=== PATIENT | female | born 1945 | race Caucasian/White ===

== ENCOUNTER 2016-12-08 10:14 | Emergency (ER) | payer OTHER, BC ==
[2016-12-08 10:18] VITALS: BP 154/68; PULSE 74; TEMP 97.8; BMI 39.6
--- NOTE | 2016-12-08 10:31 | PDOC ---
History of Present Illness - General Chief Complaint: Pain Stated Complaint: LT LEG PAIN Time Seen by Provider: 12/08/16 10:29 History Source: Patient Exam Limitations: No Limitations - History of Present Illness Initial Comments: CHIEF COMPLAINT: 71 y/o afebrile female with PMH HTN, HLD, IDDM, carotid artery stenosis, CAD (on Plavix), spinal stenosis c/o left thigh pain. HISTORY OF PRESENT ILLNESS: The patient states as she was twisting to get back into bed this morning she felt a pull and a pop in her left thigh and since that time it's been painful with certain movements. Vital signs on arrival are within normal limits. REVIEW OF SYSTEMS: GENERAL/CONSTITUTIONAL: No fever/chills. No weakness. No weight change. GASTROINTESTINAL: No abd pain, nausea, vomiting, diarrhea. GENITOURINARY: No dysuria, frequency, or change in urination. MUSCULOSKELETAL: +left thigh pain. No neck or back pain. SKIN: No rash or easy bruising. NEUROLOGIC: No headache, vertigo, loss of consciousness, or loss of sensation. PHYSICAL EXAM: VITAL_SIGNS: within normal limits GENERAL_APPEARANCE: alert, cooperative, no obvious discomfort. The patient is ambulatory with some discomfort. MENTAL_STATUS: speech clear, oriented X 3, responds appropriately to questions. BACK: No TTP of lumbar spine or muscles of lumbar spine. NEURO: motor intact and sensory intact in injured extremity. EXTREMITIES: TTP along left sartorius muscle without bulging, edema or erythema. Pulling type of pain elicited with adduction of left leg. No TTP of left hip joint. No hernias appreciated. SKIN: warm, dry, good color. Past History - Past Medical History Allergies/Adverse Reactions: Allergies Allergy/AdvReac Type Severity Reaction Status Date / Time No Known Allergies Allergy Verified 12/08/16 10:18 Home Medications: Ambulatory Orders Insulin Glargine,Hum.rec.anlog [Lantus] 10 unit SQ BID 04/05/12 Metformin HCl [Glucophage -] 500 mg PO BID 04/05/12 Metoprolol Succinate [Toprol XL -] 25 mg PO DAILY 04/05/12 Pantoprazole Suspension [Protonix Packets For Oral Suspension -] 40 mg PO DAILY 07/13/12 Vitamin E 800 unit PO BID 07/13/12 Furosemide [Lasix -] 20 mg PO DAILY PRN 04/28/13 Lorazepam 0.5 mg PO PRN PRN 04/28/13 Lidocaine 5% Patch [Lidoderm -] 1 patch TP TID PRN 06/03/13 Cholecalciferol (Vitamin D3) [Vitamin D3] 10,000 unit PO HS 11/12/14 Tramadol HCl 50 mg PO PRN PRN 11/12/14 Aspirin Coated [Ecotrin -] 81 mg PO DAILY 07/22/15 Atorvastatin Ca [Lipitor -] 80 mg PO HS 07/22/15 Clopidogrel Bisulfate [Plavix -] 75 mg PO Q48H 07/22/15 Furosemide [Lasix -] 40 mg PO PRN PRN 07/22/15 Pioglitazone HCl [Actos] 45 mg PO HS 07/22/15 Tramadol HCl 50 mg PO Q4H #30 tablet MDD 6 12/08/16 Cardiac Disorders: Yes (CHF, Mydsystolic murmur) Diabetes: Yes (IDDM) HTN: Yes Hypercholesterolemia: Yes Other medical history: SPINAL STENOSIS, CLOTTED ARTERIES - Surgical History Cardiac Surgery: Yes (cath) Orthopedic Surgery: Yes (R. Knee & Femur) - Immunization History Td Vaccination: Yes Immunization Up to Date: No - Psycho/Social/Smoking Cessation Hx Anxiety: No Suicidal Ideation: No Smoking Status: No Smoking History: Former smoker Years of Tobacco Use: 20 Have you smoked in the past 12 months: No Number of Cigarettes Smoked Daily: 0 If you are a former smoker, when did you quit?: 24 YRS AGO Cigars Per Day: 0 Information on smoking cessation initiated: No Hx Alcohol Use: Yes (SOCIAL) Drug/Substance Use Hx: No Substance Use Type: None Hx Substance Use Treatment: No *Physical Exam - Vital Signs Last Vital Signs Temp Pulse Resp BP Pulse Ox 97.8 F 74 20 154/68 97 12/08/16 10:15 12/08/16 10:15 12/08/16 10:15 12/08/16 10:15 12/08/16 10:15 Medical Decision Making - Medical Decision Making A/P: 71 y/o female with left groin pull. The patient is on Plavix. Will give Tramadol for pain as the patient states she has taken in the past. Will send Rx for tramadol. Suggested she alternate between ice and heat to the affected area and stretch affected area multiple times per day. Suggested she f/u with Dr. Sweet in 2 weeks if no improvement in symptoms and return to the ER with any worsening or concerning symptoms. The patient verbalizes understanding of all instructions, has no further questions and is awaiting discharge. *DC/Admit/Observation/Transfer Diagnosis at time of Disposition: Muscle strain of left lower extremity Qualifiers: Encounter type: initial encounter Qualified Code(s): S86.912A - Strain of unspecified muscle(s) and tendon(s) at lower leg level, left leg, initial encounter - Discharge Dispostion Disposition: HOME Condition at time of disposition: Good - Prescriptions Prescriptions: Tramadol HCl 50 mg PO Q4H #30 tablet MDD 6 - Referrals Referrals: Julio C Barbosa MD [Primary Care Provider] - Shawn Sweet MD [Staff Physician] - 14 days - Patient Instructions Printed Discharge Instructions: DI for Muscle Strain, How To Perform RICE (Rest , Ice, Compress, Elevate) Additional Instructions: Discharge Instructions: -Take Tramadol as prescribed if needed for pain; may cause drowsiness -Alternate between ice and heating pad to affected area -Stretch your affected muscle hourly -If no improvement in symptoms within 1 week, follow up with Dr. Sweet -Return to the ER with any worsening or concerning symptoms
[2016-12-08] MEDS ORDERED: traMADol HCL 50 MG TABLET PO ONE (10:45)
[2016-12-08] MEDS ORDERED: traMADol HCL 50 MG TABLET ONE (10:48)
== END 2016-12-08 10:50 | disposition home or self-care (01) ==
LOC: JERFT 10:14
DX: S76.812A Strain of other specified muscles, fascia and tendons at thigh level, left thigh, initial encounter (principal); X50.1XXA Overexertion from prolonged static or awkward postures, initial encounter; Y93.89 Activity, other specified; Y92.013 Bedroom of single-family (private) house as the place of occurrence of the external cause; I25.10 Atherosclerotic heart disease of native coronary artery without angina pectoris; Z98.61 Coronary angioplasty status; I11.0 Hypertensive heart disease with heart failure; E11.9 Type 2 diabetes mellitus without complications; Z79.4 Long term (current) use of insulin; Z79.84 Long term (current) use of oral hypoglycemic drugs; E78.00 Pure hypercholesterolemia, unspecified; I65.23 Occlusion and stenosis of bilateral carotid arteries; M48.00 Spinal stenosis, site unspecified; Z79.01 Long term (current) use of anticoagulants
CPT/HCPCS: 99281-25

== ENCOUNTER 2017-02-04 09:12 | Inpatient (IN) | payer OTHER, BC ==
[2017-02-04 09:17] VITALS: BMI 39.1
[2017-02-04] MEDS ORDERED: CLINDAMYCIN 600MG PREMIX IVPB 50 ML IVPB ONE ×2 (09:39→09:44)
--- NOTE | 2017-02-04 09:56 | PDOC ---
History of Present Illness - General Chief Complaint: Redness To Affected Area Stated Complaint: PAIN Time Seen by Provider: 02/04/17 09:22 History Source: Patient - History of Present Illness Occurred: reports: other Lower Extremity Pain Location: right: foot Past History - Past Medical History Allergies/Adverse Reactions: Allergies Allergy/AdvReac Type Severity Reaction Status Date / Time No Known Allergies Allergy Verified 02/04/17 09:13 Home Medications: Ambulatory Orders Insulin Glargine,Hum.rec.anlog [Lantus] 10 unit SQ BID 04/05/12 Metformin HCl [Glucophage -] 500 mg PO BID 04/05/12 Metoprolol Succinate [Toprol XL -] 25 mg PO DAILY 04/05/12 Pantoprazole Suspension [Protonix Packets For Oral Suspension -] 40 mg PO DAILY 07/13/12 Vitamin E 800 unit PO BID 07/13/12 Furosemide [Lasix -] 20 mg PO DAILY PRN 04/28/13 Lorazepam 0.5 mg PO PRN PRN 04/28/13 Lidocaine 5% Patch [Lidoderm -] 1 patch TP TID PRN 06/03/13 Cholecalciferol (Vitamin D3) [Vitamin D3] 10,000 unit PO HS 11/12/14 Aspirin Coated [Ecotrin -] 81 mg PO DAILY 07/22/15 Atorvastatin Ca [Lipitor -] 80 mg PO HS 07/22/15 Clopidogrel Bisulfate [Plavix -] 75 mg PO Q48H 07/22/15 Furosemide [Lasix -] 40 mg PO PRN PRN 07/22/15 Pioglitazone HCl [Actos] 45 mg PO HS 07/22/15 Tramadol HCl 50 mg PO Q4H #30 tablet MDD 6 12/08/16 Ciclopirox Olamine [Ciclodan] 90 gm TP BID 02/04/17 Magnesium Oxide [Magnesium] 400 mg PO BID 02/04/17 Cardiac Disorders: Yes (CHF, Mydsystolic murmur) 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 Knee & Femur) - Immunization History Td Vaccination: Yes Immunization Up to Date: No - Psycho/Social/Smoking Cessation Hx Anxiety: No Suicidal Ideation: No Smoking Status: No Smoking History: Never smoked Years of Tobacco Use: 20 Have you smoked in the past 12 months: No Number of Cigarettes Smoked Daily: 0 If you are a former smoker, when did you quit?: 24 YRS AGO Cigars Per Day: 0 Information on smoking cessation initiated: No Hx Alcohol Use: No Drug/Substance Use Hx: No Substance Use Type: None Hx Substance Use Treatment: No Review of Systems - Review of Systems Constitutional: No: Chills, Fever, Malaise Integumentary: Yes: Erythema *Physical Exam - Vital Signs Last Vital Signs Temp Pulse Resp BP Pulse Ox 97.9 F 76 18 117/58 95 02/04/17 09:13 02/04/17 09:13 02/04/17 09:13 02/04/17 09:13 02/04/17 09:13 - Physical Exam General Appearance: Yes: Appropriately Dressed. No: Apparent Distress HEENT: positive: Pale Conjunctivae Neck: positive: Supple Respiratory/Chest: negative: Respiratory Distress Extremity: positive: Erythema (erythema w/ minimal swelling to R toes diffusely , extending into dorsum of foot, w/ ttp to lateral aspect of R great toe w/ no e /o paronychia at this time, pedal pulses faint) Integumentary: positive: Dry, Warm Neurologic: positive: Fully Oriented, Alert, Normal Mood/Affect ED Treatment Course - LABORATORY CBC & Chemistry Diagram: 02/04/17 09:50 02/04/17 10:31 - RADIOLOGY Radiology Studies Ordered: Category Date Time Status CHEST X-RAY PORTABLE* [RAD] Stat Radiology 02/04/17 09:39 Ordered FOOT-RIGHT [RAD] Stat Radiology 02/04/17 09:39 Ordered Medical Decision Making - Medical Decision Making 02/04/17 09:51 71 yo F, h/o IDDM, HTN, CHF, CAD, TIA, carotid stenosis, gout, p/w pain, swelling and erythema to R foot. Pt states she gets recurrent paronychia to R great toe and that her R toes are usually "discolored" at baseline but that for the past 3 days, toes are "more red and angry looking". No f/c, Feels well otherwise See exam R foot cellulitis Pedal pulses palpated but faint Stable in ED -labs -XR r/o osteo -abx -anticipate admission for IV abx and vascular consult to r/o PVD as contributing factor to cellulitis 02/04/17 09:57 02/04/17 09:59 02/04/17 11:19 Case d/w Dr Faulkner who recommends US arterial/vasc and admit pt 02/04/17 13:15 As per radiology, there is some periosteal changes along distal tibia which could represent ?osteo. On exam pt's cellulitis is to R toes, there in no ankle/ leg involvement so osteo less likely. However will send off CRP/ESR. US neg for DVT and there is some inflow ab/nl on arterial dopler but no occlusion or sig stenosis. 02/04/17 13:27 *DC/Admit/Observation/Transfer Diagnosis at time of Disposition: Cellulitis Qualifiers: Site of cellulitis: extremity Site of cellulitis of extremity: lower extremity Laterality: right Qualified Code(s): L03.115 - Cellulitis of right lower limb - Discharge Dispostion Condition at time of disposition: Stable Admit: Yes - Referrals
[2017-02-04 09:58] LABS: BASOPHIL 1.1 % (0-2.0); EOSINOPHIL 4.2 % (0-4.5); MCH 26.7 pg (25.7-33.7); MCHC 32.9 g/dl (32.0-36.0); MEAN CELL VOLUME 81.3 fl (80-96); MEAN PLT VOLUME 8.4 fl (7.5-11.1); NEUTROPHILS 61.2 % (42.8-82.8); PLATELET COUNT 256 K/MM3 (134-434); RDW 17.4 % (11.6-15.6); WHITE BLOOD COUNT 7.6 K/mm3 (4.0-10.0)
--- NOTE | 2017-02-04 10:01 | PDOC ---
*Physical Exam - Vital Signs Last Vital Signs Temp Pulse Resp BP Pulse Ox 97.9 F 76 18 117/58 95 02/04/17 09:13 02/04/17 09:13 02/04/17 09:13 02/04/17 09:13 02/04/17 09:13 Heart Score/ECG Review #1 ECG reviewed & interpreted by me at: 10:01 02/04/17 10:01 Twelve-lead EKG was performed and reviewed by me. There is normal sinus rhythm with a normal rate of 71 bpm. The axis is normal. The intervals are normal. There are no ST elevations or depressions. T wave inversion III ED Treatment Course - LABORATORY CBC & Chemistry Diagram: 02/04/17 09:50 02/04/17 10:31 Medical Decision Making - Medical Decision Making 02/04/17 09:59 This is a 71 yo F H/o DM recurrent paronychias p/w right foot pain and swelling pt notes increased erythema No fevers No chills Plan for vein study by Dr. Bentley some time in february Will: check labs check crp xray foot possible observation Pt seen by Midlevel Provider under my direct supervision Pt interviewed and examined Ancillary studies reviewed I agree with plan as outlined by Midlevel Provider *DC/Admit/Observation/Transfer Diagnosis at time of Disposition: Cellulitis - Discharge Dispostion Condition at time of disposition: Stable
--- NOTE | 2017-02-04 10:04 | EKG ---
Test Reason : Blood Pressure : / mmHG Vent. Rate : 071 BPM Atrial Rate : 071 BPM P-R Int : 194 ms QRS Dur : 094 ms QT Int : 422 ms P-R-T Axes : 019 065 021 degrees QTc Int : 458 ms NORMAL SINUS RHYTHM NONSPECIFIC ST ABNORMALITY WHEN COMPARED WITH ECG OF 07 JAN 2015 Confirmed by ANGLE RAY MD ([id number]) on 02/04/2017 10:03:37 AM Referred By: Confirmed By:ANGLE ARY MD
[2017-02-04 11:14] LABS: ALBUMIN 3.3 g/dl (3.4-5.0); ALK PHOS 101 U/L (45-117); ANION GAP 11 (8-16); BILIRUBIN,TOTAL 0.4 mg/dL (0.2-1.0); CALCIUM 9.6 mg/dL (8.5-10.1); CO2 24 mmol/L (21-32); CREATININE 1.4 mg/dL (0.55-1.02); GLUCOSE,RANDOM 99 mg/dL (74-106); SGOT/AST 20 U/L (15-37); SGPT/ALT 14 U/L (12-78); TOT PROT 7.5 g/dl (6.4-8.2)
[2017-02-04 16:29] LABS: URINE APPEARANCE CLEAR; URINE BILIRUBIN NEGATIVE (NEGATIVE); URINE BLOOD NEGATIVE (NEGATIVE); URINE COLOR LTYELLOW; URINE GLUCOSE (UA) NEGATIVE (NEGATIVE); URINE KETONE NEGATIVE (NEGATIVE); URINE LEUK ESTERASE NEGATIVE (NEGATIVE); URINE NITRITE NEGATIVE (NEGATIVE); URINE PROTEIN NEGATIVE (NEGATIVE); URINE UROBILINOGEN NEGATIVE E.U./dl (0.2-1.0)
--- NOTE | 2017-02-04 19:32 | CONSULT ---
Consult - Past Medical History Cardio/Vascular: Yes: Aortic Stenosis, CAD, CHF, HTN, Other (carotid artery disease) Gastrointestinal: Yes: Constipation Renal/: Yes: Renal Inusuff Psych: Yes: Anxiety Musculoskeletal: Yes: Chronic low back pain - Alcohol/Substance Use Hx Alcohol Use: No - Smoking History Smoking history: Never smoked Have you smoked in the past 12 months: No Aproximately how many cigarettes per day: 0 If you are a former smoker, when did you quit?: 24 YRS AGO Home Medications - Allergies Allergies/Adverse Reactions: Allergies Allergy/AdvReac Type Severity Reaction Status Date / Time No Known Allergies Allergy Verified 02/04/17 09:13 - Home Medications Home Medications: Ambulatory Orders Insulin Glargine,Hum.rec.anlog [Lantus] 10 unit SQ BID 04/05/12 Metformin HCl [Glucophage -] 500 mg PO BID 04/05/12 Metoprolol Succinate [Toprol XL -] 25 mg PO DAILY 04/05/12 Pantoprazole Suspension [Protonix Packets For Oral Suspension -] 40 mg PO DAILY 07/13/12 Vitamin E 800 unit PO BID 07/13/12 Furosemide [Lasix -] 20 mg PO DAILY PRN 04/28/13 Lorazepam 0.5 mg PO PRN PRN 04/28/13 Lidocaine 5% Patch [Lidoderm -] 1 patch TP TID PRN 06/03/13 Cholecalciferol (Vitamin D3) [Vitamin D3] 10,000 unit PO HS 11/12/14 Aspirin Coated [Ecotrin -] 81 mg PO DAILY 07/22/15 Atorvastatin Ca [Lipitor -] 80 mg PO HS 07/22/15 Clopidogrel Bisulfate [Plavix -] 75 mg PO Q48H 07/22/15 Furosemide [Lasix -] 40 mg PO PRN PRN 07/22/15 Pioglitazone HCl [Actos] 45 mg PO HS 07/22/15 Tramadol HCl 50 mg PO Q4H #30 tablet MDD 6 12/08/16 Ciclopirox Olamine [Ciclodan] 90 gm TP BID 02/04/17 Magnesium Oxide [Magnesium] 400 mg PO BID 02/04/17 Family Disease History - Family Disease History Family Disease History: Diabetes: Mother, Brother Physical Exam Vital Signs: Vital Signs Temperature 97.8 F 02/04/17 11:07 Pulse Rate 78 02/04/17 13:14 Respiratory Rate 22 02/04/17 13:14 Blood Pressure 166/70 02/04/17 13:14 O2 Sat by Pulse Oximetry (%) 95 02/04/17 13:14 Assessment/Plan Vascular Surgery 71 yo F, h/o IDDM, HTN, CHF, CAD, TIA, carotid stenosis, gout, p/w pain, swelling and erythema to R foot. Pt states she gets recurrent paronychia to R great toe and that her R toes are usually "discolored" at baseline but that for the past 3 days, toes are "more red and angry looking". No f/c, Feels well otherwise PE Head - NC/AT lung - CTA heart - rrr ABd - soft,nt,nd ext - right foot celllulitis - -palpable DP and PT pulse. A/P Right foot cellulitis 1. leg elevation 2. IV antibiotics - I gave one dose of clindamycin to pt. 3. ID consult Evaristo Gary DO
[2017-02-04] MEDS ORDERED: LORazepam 0.5 MG TABLET PO PRN (19:44)
[2017-02-04] MEDS ORDERED: LIDOCAINE 5% TOPICAL PATCH TP PRN (19:44)
[2017-02-04] MEDS ORDERED: FUROSEMIDE 20 MG TABLET (FP) PO PRN (19:44)
[2017-02-04] MEDS ORDERED: CLOPIDOGREL BISULFATE 75 MG TABLET (FP) PO SCH (19:45)
[2017-02-04] MEDS: CLINDAMYCIN 600MG PREMIX IVPB 50 ML IVPB SCH (20:22)
[2017-02-04] MEDS ORDERED: [UNRECOGNIZED DRUG - OTHER] SQ SCH (22:00)
[2017-02-04] MEDS ORDERED: INSULIN GLARGINE HUM REC ANLOG 10 UNIT SQ SCH (22:00)
[2017-02-04] MEDS: INSULIN DETEMIR 100 UNITS/ML MDV SQ SCH (22:05)
[2017-02-04] MEDS: ATORVASTATIN CA 80 MG TABLET (FP) PO SCH (22:05)
[2017-02-04] MEDS: PIOGLITAZONE HCL 15 MG TABLET (FP) PO SCH (22:05)
[2017-02-05] MEDS: CLINDAMYCIN 600MG PREMIX IVPB 50 ML IVPB SCH (01:16)
[2017-02-05] MEDS: INSULIN DETEMIR 100 UNITS/ML MDV SQ SCH ×2 (06:28→21:10)
[2017-02-05] MEDS: metFORMIN HCL 500 MG TABLET (FP) PO SCH ×2 (06:28→16:37)
--- NOTE | 2017-02-05 09:41 | PN ---
Progress Note (short form) - Note Progress Note: ID Full note dictated " Cellulitis" does not look like it requires admission at this point Assessment Rx with Cefazolin until Dr Faulkner discharges her on Keflex 500mg tid for 5 days Raj PHILIPPE Problem List - Problems (1) Cellulitis Code(s): L03.90 - CELLULITIS, UNSPECIFIED Qualifiers: Site of cellulitis: extremity Site of cellulitis of extremity: lower extremity Laterality: right Qualified Code(s): L03.115 - Cellulitis of right lower limb (2) Diabetes Code(s): E11.9 - TYPE 2 DIABETES MELLITUS WITHOUT COMPLICATIONS
[2017-02-05] MEDS: ASPIRIN COATED 81 MG TABLET.EC PO SCH (09:55)
[2017-02-05] MEDS ORDERED: CLOPIDOGREL BISULFATE 75 MG TABLET (FP) PO SCH (10:00)
[2017-02-05] MEDS: CEFAZOLIN (PRE-DOCKED) 50 ML IVPB SCH ×2 (10:03→17:19)
[2017-02-05 10:11] LABS: C-REACTIVE PROTEIN < 0.3 MG/DL (0.00-0.3)
--- NOTE | 2017-02-05 11:04 | CONS ---
DATE OF CONSULTATION: DATE OF DICTATION: 02/05/2017 INFECTIOUS DISEASE CONSULTATION HISTORY OF PRESENT ILLNESS: This is a 71-year-old diabetic female whom I am asked to see for soft tissue infection of the right foot. The patient apparently developed redness and some swelling on the top of her foot, at the base of the toes. She states that her toes are always red. This began 2 to 3 days ago, and she states she periodically sees a poly area supervisor, who cuts her nails, although she has not been recently. She denies any history of trauma for the foot, and was afebrile, without any systemic complaints of fevers or chills at home. She was admitted with the diagnosis of cellulitis of the right foot and seen in consultation by Dr. Gary and treated with clindamycin intravenously. PAST MEDICAL HISTORY: Includes aortic stenosis, congestive heart failure, insulin dependent diabetes, gout, surgery on the right knee and fever. ALLERGIES: None known. SOCIAL HISTORY: Former smoker, gave this up 24 years ago. No history of substance abuse. Lives at home. No travel. FAMILY HISTORY: Reviewed and noncontributory. REVIEW OF SYSTEMS: Respiratory: No cough, shortness of breath. Cardiac: No chest pain, syncope. History of aortic murmur. Gastrointestinal: No abdominal pain, nausea, vomiting, diarrhea. Genitourinary: No dysuria, hematuria or urinary frequency. PHYSICAL EXAMINATION: General: She was an alert, well-nourished appearing woman in no acute distress. Vital Signs: Temperature 97.8, pulse 74, blood pressure 156/78, respirations 22. Neck: Supple without adenopathy. Lungs: Clear to percussion and auscultation. Heart: S1, S2. Regular rhythm, with a grade 3/6 systolic murmur heard over the precordium. Abdomen: Soft, nontender, without hepatosplenomegaly. Extremities: Minimal erythema at the base of all right toes, with some mild swelling. Palpable pulses. No open wounds. Hallux valgus, suspected hammertoe deformity. DIAGNOSTIC STUDIES: White count 7.6, hemoglobin 10.5, platelets 256. BUN 24, creatinine 1.4. Urinalysis - negative screening UA. X-ray of the foot shows periosteal changes along the distal tibia. ASSESSMENT: Mild skin and soft tissue infection, "cellulitis" of the right foot, has been treated with doses of clindamycin. Absence of systemic findings of fever and chills. RECOMMENDATIONS: The patient can probably be discharged at this point. I will have her on cefazolin while in the hospital, with plan to discharge the patient on Keflex, a short course, perhaps 5 days. PALMIRA RAY M.D. [id number]
--- NOTE | 2017-02-05 14:01 | HP ---
Admitting History and Physical - Admission History of Present Illness: Pt is a 71 y/o female w/ PMH significant for HTN, CHF, diabetes, HLD, carotid stenosis, chronic back pain and anxiety. Pt has also has been having recurrent paronychias and now presented to the ER w/ right foot pain and swelling. There is increased warmth and redness of toes of rt foot. Pt denies fever or chills. - Past Medical History Cardiovascular: Yes: Aortic Stenosis, CAD, CHF, HTN, Other (carotid artery disease) Gastrointestinal: Yes: Constipation Renal/: Yes: Renal Inusuff Psych: Yes: Anxiety Musculoskeletal: Yes: Chronic low back pain Endocrine: Yes: Diabetes Mellitus - Smoking History Smoking history: Never smoked Have you smoked in the past 12 months: No Aproximately how many cigarettes per day: 0 If you are a former smoker, when did you quit?: 24 YRS AGO - Alcohol/Substance Use Hx Alcohol Use: No Home Medications - Allergies Allergies/Adverse Reactions: Allergies Allergy/AdvReac Type Severity Reaction Status Date / Time No Known Allergies Allergy Verified 02/04/17 09:13 - Home Medications Home Medications: Ambulatory Orders Insulin Glargine,Hum.rec.anlog [Lantus] 10 unit SQ BID 04/05/12 Metformin HCl [Glucophage -] 500 mg PO BID 04/05/12 Metoprolol Succinate [Toprol XL -] 25 mg PO DAILY 04/05/12 Pantoprazole Suspension [Protonix Packets For Oral Suspension -] 40 mg PO DAILY 07/13/12 Vitamin E 800 unit PO BID 07/13/12 Furosemide [Lasix -] 20 mg PO DAILY PRN 04/28/13 Lorazepam 0.5 mg PO PRN PRN 04/28/13 Lidocaine 5% Patch [Lidoderm -] 1 patch TP TID PRN 06/03/13 Cholecalciferol (Vitamin D3) [Vitamin D3] 10,000 unit PO HS 11/12/14 Aspirin Coated [Ecotrin -] 81 mg PO DAILY 07/22/15 Atorvastatin Ca [Lipitor -] 80 mg PO HS 07/22/15 Clopidogrel Bisulfate [Plavix -] 75 mg PO Q48H 07/22/15 Furosemide [Lasix -] 40 mg PO PRN PRN 07/22/15 Pioglitazone HCl [Actos] 45 mg PO HS 07/22/15 Tramadol HCl 50 mg PO Q4H #30 tablet MDD 6 12/08/16 Ciclopirox Olamine [Ciclodan] 90 gm TP BID 02/04/17 Magnesium Oxide [Magnesium] 400 mg PO BID 02/04/17 Family Disease History - Family Disease History Family History: Unremarkable Family Disease History: Diabetes: Mother, Brother Review of Systems - Review of Systems Constitutional: reports: No Symptoms Eyes: reports: No Symptoms HENT: reports: No Symptoms Neck: reports: No Symptoms Cardiovascular: reports: No Symptoms Respiratory: reports: No Symptoms Gastrointestinal: reports: No Symptoms Genitourinary: reports: No Symptoms Musculoskeletal: reports: Other (redness pain rt foot) Physical Examination Vital Signs: Vital Signs Temperature 98.1 F 02/05/17 09:46 Pulse Rate 75 02/05/17 09:46 Respiratory Rate 16 02/05/17 09:46 Blood Pressure 144/62 02/05/17 09:46 O2 Sat by Pulse Oximetry (%) 95 02/04/17 13:14 Constitutional: Yes: Well Nourished HENT: Yes: WNL Neck: Yes: WNL, Supple Cardiovascular: Yes: WNL, Regular Rate and Rhythm Respiratory: Yes: WNL, Regular, CTA Bilaterally Gastrointestinal: Yes: WNL, Normal Bowel Sounds, Soft Extremities: Yes: Other ((+) erythema rt toes) Problem List - Problems (1) Cellulitis Assessment/Plan: Cont IV antibx Vascular surgery consult noted ID consult Possible dc planning for am on oral antibx Code(s): L03.90 - CELLULITIS, UNSPECIFIED Qualifiers: Site of cellulitis: extremity Site of cellulitis of extremity: lower extremity Laterality: right Qualified Code(s): L03.115 - Cellulitis of right lower limb (2) Anxiety Code(s): F41.9 - ANXIETY DISORDER, UNSPECIFIED (3) Aortic stenosis Code(s): I35.0 - NONRHEUMATIC AORTIC (VALVE) STENOSIS (4) Carotid artery disease Code(s): I77.9 - DISORDER OF ARTERIES AND ARTERIOLES, UNSPECIFIED (5) Diabetes Code(s): E11.9 - TYPE 2 DIABETES MELLITUS WITHOUT COMPLICATIONS (6) Hypertension Code(s): I10 - ESSENTIAL (PRIMARY) HYPERTENSION Qualifiers: Hypertension type: essential hypertension Qualified Code(s): I10 - Essential (primary) hypertension (7) Spinal stenosis Code(s): M48.00 - SPINAL STENOSIS, SITE UNSPECIFIED
[2017-02-05] MEDS: MAGNESIUM OXIDE 400 MG TABLET (FP) PO SCH (21:09)
[2017-02-05] MEDS: ATORVASTATIN CA 80 MG TABLET (FP) PO SCH (21:09)
[2017-02-05] MEDS: PIOGLITAZONE HCL 15 MG TABLET (FP) PO SCH (21:45)
[2017-02-06] MEDS: CEFAZOLIN (PRE-DOCKED) 50 ML IVPB SCH ×2 (01:51→11:10)
[2017-02-06] MEDS ORDERED: ACETAMINOPHEN 325 MG TABLET (FP) ONE (04:52)
[2017-02-06] MEDS: ACETAMINOPHEN 325 MG TABLET (FP) PO PRN ×2 (04:55→13:58)
[2017-02-06] MEDS: metFORMIN HCL 500 MG TABLET (FP) PO SCH (06:18)
[2017-02-06] MEDS: INSULIN DETEMIR 100 UNITS/ML MDV SQ SCH (07:40)
[2017-02-06] MEDS ORDERED: RANITIDINE HCL 150 MG TABLET (FP) PO SCH (10:00)
[2017-02-06] MEDS ORDERED: FUROSEMIDE 20 MG TABLET (FP) PO SCH (10:00)
[2017-02-06] MEDS: ASPIRIN COATED 81 MG TABLET.EC PO SCH (11:10)
[2017-02-06] MEDS: MAGNESIUM OXIDE 400 MG TABLET (FP) PO SCH (11:10)
[2017-02-06] MEDS ORDERED: METOPROLOL SUCCINATE 25 MG TAB.SR.24H (FP) PO ONE (13:00)
[2017-02-06 14:42] VITALS: BP 148/64; PULSE 72; TEMP 98.7
== END 2017-02-06 15:37 | disposition home or self-care (01) | DRG 603 ==
LOC: JER 09:12 → JERBED 11:07 → J6S 13:31
PROVIDERS: ADMIT Internal Medicine; ATTEND Internal Medicine
DX: L03.115 Cellulitis of right lower limb (principal); F41.9 Anxiety disorder, unspecified; I35.0 Nonrheumatic aortic (valve) stenosis; M48.00 Spinal stenosis, site unspecified; I11.0 Hypertensive heart disease with heart failure; I50.9 Heart failure, unspecified; I25.10 Atherosclerotic heart disease of native coronary artery without angina pectoris; E11.9 Type 2 diabetes mellitus without complications; E78.5 Hyperlipidemia, unspecified; M54.5 Low back pain; Z79.4 Long term (current) use of insulin
CPT/HCPCS: 36415; 71010-TC; 73630-TC-RT; 80053; 81003; 85025; 86140; 93005; 93010; 93926-TC; 93971-TC; 99283-25

== ENCOUNTER 2017-06-17 06:14 | Inpatient (IN) | payer OTHER, BC ==
[2017-06-17 06:43] VITALS: BMI 36.8
[2017-06-17 06:55] LABS: MCHC 32.3 g/dl (32.0-36.0)
[2017-06-17 06:57] LABS: BASOPHIL 0.8 % (0-2.0); EOSINOPHIL 4.4 % (0-4.5); MCH 25.4 pg (25.7-33.7); MEAN CELL VOLUME 78.6 fl (80-96); NEUTROPHILS 59.9 % (42.8-82.8); PLATELET COUNT 236 K/MM3 (134-434); RDW 15.5 % (11.6-15.6); WHITE BLOOD COUNT 5.9 K/mm3 (4.0-10.0)
[2017-06-17 07:11] LABS: INR 1.06 (0.82-1.09)
[2017-06-17 07:22] LABS: ALBUMIN 3.4 g/dl (3.4-5.0); ANION GAP 7 (8-16); CALCIUM 8.9 mg/dL (8.5-10.1); CO2 27 mmol/L (21-32); CREATININE 1.5 mg/dL (0.55-1.02); GLUCOSE,RANDOM 124 mg/dL (74-106); SGOT/AST 16 U/L (15-37); SGPT/ALT 16 U/L (12-78)
[2017-06-17 07:24] LABS: ALK PHOS 104 U/L (45-117); BILIRUBIN,TOTAL 0.5 mg/dL (0.2-1.0); TOT PROT 7.2 g/dl (6.4-8.2)
--- NOTE | 2017-06-17 07:51 | PDOC ---
History of Present Illness - General Chief Complaint: Revisit, Lab Variance Stated Complaint: LIGHTHEADED Time Seen by Provider: 06/17/17 07:01 History Source: Patient Exam Limitations: No Limitations - History of Present Illness Initial Comments: 06/17/17 08:03 Patient is a 72F with history of COPD, CHF, CAD s/p stenting, mutliple arterial vascular issues, and IDDM here today complaining of 2 weeks of fatigue, lightheadedness, and dizziness for the past two weeks. She is also complaining of associated decreased activity level and upper abdominal pain. She denies chest pain, shortness of breath, nausea, vomiting and diaphoresis. She says that her PMD says she was anemic, which was the reason for her presentation for the hospital today. She denies melena, coffee ground emesis, blood in urine, and blood in stool. She reports never having a colonoscopy but did get test called Colon Guard, which was negative. PCP: Familia ALL: AMIRA Past History - Past Medical History Allergies/Adverse Reactions: Allergies Allergy/AdvReac Type Severity Reaction Status Date / Time No Known Allergies Allergy Verified 06/17/17 06:21 Home Medications: Ambulatory Orders Insulin Glargine,Hum.rec.anlog [Lantus] 10 unit SQ BID 04/05/12 Metformin HCl [Glucophage -] 500 mg PO BID 04/05/12 Metoprolol Succinate [Toprol XL -] 25 mg PO DAILY 04/05/12 Pantoprazole Suspension [Protonix Packets For Oral Suspension -] 40 mg PO DAILY 07/13/12 Vitamin E 800 unit PO BID 07/13/12 Furosemide [Lasix -] 20 mg PO DAILY PRN 04/28/13 Lorazepam 0.5 mg PO PRN PRN 04/28/13 Lidocaine 5% Patch [Lidoderm -] 1 patch TP TID PRN 06/03/13 Cholecalciferol (Vitamin D3) [Vitamin D3] 10,000 unit PO HS 11/12/14 Aspirin Coated [Ecotrin -] 81 mg PO DAILY 07/22/15 Atorvastatin Ca [Lipitor] 80 mg PO HS 07/22/15 Clopidogrel Bisulfate [Plavix -] 75 mg PO Q48H 07/22/15 Furosemide [Lasix -] 40 mg PO PRN PRN 07/22/15 Pioglitazone HCl [Actos] 45 mg PO HS 07/22/15 Tramadol HCl 50 mg PO Q4H #30 tablet MDD 6 12/08/16 Ciclopirox Olamine [Ciclodan] 90 gm TP BID 02/04/17 Magnesium Oxide [Magnesium] 400 mg PO BID 02/04/17 Clopidogrel Bisulfate [Plavix -] 75 mg PO Q2D@1000 tablet 02/06/17 Furosemide [Lasix -] 20 mg PO DAILY tablet 02/06/17 Magnesium Oxide [Mag-Ox -] 400 mg PO BID tablet 02/06/17 Metformin HCl [Glucophage -] 500 mg PO BIDI tablet 02/06/17 Pioglitazone HCl [Actos] 45 mg PO HS tablet 02/06/17 Ranitidine [Zantac -] 150 mg PO DAILY tablet 02/06/17 Sertraline HCl [Zoloft] 25 mg PO 06/17/17 Cardiac Disorders: Yes (CHF, Mydsystolic murmur) CVA: Yes (10 years ago) Diabetes: Yes (IDDM) HTN: Yes Hypercholesterolemia: Yes - Surgical History Cardiac Surgery: Yes (cath) Orthopedic Surgery: Yes (R. Knee & Femur) - Immunization History Td Vaccination: Yes Immunization Up to Date: No - Suicide/Smoking/Psychosocial Hx Smoking Status: No Smoking History: Former smoker Years of Tobacco Use: 20 Have you smoked in the past 12 months: No Number of Cigarettes Smoked Daily: 0 If you are a former smoker, when did you quit?: 25 years ago Cigars Per Day: 0 Information on smoking cessation initiated: No Hx Alcohol Use: No Drug/Substance Use Hx: No Substance Use Type: None Hx Substance Use Treatment: No Review of Systems - Review of Systems Comments:: 06/17/17 08:33 GENERAL/CONSTITUTIONAL: No fever or chills. Positive for weakness. HEAD, EYES, EARS, NOSE AND THROAT: No change in vision. No sore throat. CARDIOVASCULAR: No chest pain or shortness of breath RESPIRATORY: No cough, wheezing, or hemoptysis. GASTROINTESTINAL: No nausea, vomiting, diarrhea or constipation. GENITOURINARY: No dysuria, frequency, or change in urination. MUSCULOSKELETAL: No joint or muscle swelling or pain. No neck or back pain. SKIN: No rash NEUROLOGIC: No headache, vertigo, loss of consciousness, or change in strength/ sensation. ENDOCRINE: No increased thirst. No abnormal weight change HEMATOLOGIC/LYMPHATIC: Positive for history of anemia. Negative for history of easy bleeding, or history of blood clots. ALLERGIC/IMMUNOLOGIC: No hives or skin allergy. *Physical Exam - Vital Signs Last Vital Signs Temp Pulse Resp BP Pulse Ox 97.1 F L 84 18 169/66 96 06/17/17 06:21 06/17/17 06:21 06/17/17 06:21 06/17/17 06:21 06/17/17 06:21 - Physical Exam Comments: 06/17/17 08:35 GENERAL: Awake, alert, and fully oriented, in no acute distress HEAD: No signs of trauma, normocephalic, atraumatic EYES: PERRLA, EOMI, sclera anicteric, conjunctiva clear ENT: Auricles normal inspection, hearing grossly normal, nares patent, oropharynx clear without exudates. Moist mucosa NECK: Normal ROM, supple, no lymphadenopathy, JVD, or masses LUNGS: No distress, speaks full sentences, clear to auscultation bilaterally HEART: Regular rate and rhythm, normal S1 and S2, 3/6 systolic crescendo murmur , peripheral pulses normal and equal bilaterally. ABDOMEN: Soft, nontender, normoactive bowel sounds. No guarding, no rebound. No masses EXTREMITIES: Normal inspection, Normal range of motion, 2+ edema to knee. No clubbing or cyanosis. NEUROLOGICAL: Cranial nerves II through XII grossly intact. Normal speech, no focal sensorimotor deficits SKIN: Warm, Dry, normal turgor, no rashes or lesions noted. 06/17/17 09:58 RECTAL: No emre blood, no masses, normal tone. ED Treatment Course - LABORATORY CBC & Chemistry Diagram: 06/17/17 06:34 06/17/17 06:34 - ADDITIONAL ORDERS Additional order review: 06/17/17 06:34 RBC 3.34 L MCV 78.6 L MCHC 32.3 RDW 15.5 D MPV 8.0 Neutrophils % 59.9 Lymphocytes % 25.0 Monocytes % 9.9 Eosinophils % 4.4 Basophils % 0.8 Medical Decision Making - Medical Decision Making 06/17/17 08:36 Patient is a 72F with history of COPD, CHF, CAD s/p stenting, mutliple arterial vascular issues, and IDDM here today complaining of 2 weeks of fatigue, lightheadedness, and dizziness for the past two weeks. Vital signs stable and normal. Differential diagnosis includes, but is not limited to: CHF exacerbation , ACS, anemia, arrhythmia, worsening of cardiac valve function. Will evaluate with heart and anemia labs. EKG shows normal sinus rhythm at normal rate with no st elevation. Shows non specific t wave abnormality in I, II, and III. 06/17/17 09:55 Laboratory Tests 06/17/17 06/17/17 06/17/17 06:34 06:34 06:34 WBC 5.9 Hgb 8.5 L D Hct 26.3 L D Plt Count 236 INR 1.06 BUN 34 H Creatinine 1.5 H B-Natriuretic Peptide 06/17/17 08:45 WBC Hgb Hct Plt Count INR BUN Creatinine B-Natriuretic Peptide 8954.40 H CBC shows microcytic anemia with H/H of 8.5/26.3. Coags normal. Kidney function elevated, last Cr's at 1.3/1.4, earlier 1.0. BNP elevated to 9k. 06/17/17 09:56 CXR shows signs of fluid overload. Will admit to hospitalist. 06/17/17 12:20 Dr Sim accepted patient to inpatient tele. *DC/Admit/Observation/Transfer Diagnosis at time of Disposition: Congestive heart failure (CHF) - Discharge Dispostion Condition at time of disposition: Stable Admit: Yes - Referrals - Patient Instructions - Post Discharge Activity
--- NOTE | 2017-06-17 09:02 | PDOC ---
Attending Attestation - Resident Resident Name: [email or web address] - ED Attending Attestation I have performed the following: I have examined & evaluated the patient, The case was reviewed & discussed with the resident, I agree w/resident's findings & plan, Exceptions are as noted - HPI HPI: 72 yo F history CHF, COPD, CAD s/p stents, DM presents with 2 weeks of fatigue, LH, dizziness for 2 weeks. She has recently had a GI workup with her primary and Dr. Ramos (GI), negative for bleeding. Also had a negative Cologuard test. She saw Dr. Barbosa recently, who sent blood. She was called back yesterday for anemia with Hb 8. She presents today because of weakness, lightheadedness, dec exercise tolerance. - Physicial Exam PE: GENERAL: Awake, alert, and fully oriented, in no acute distress HEAD: No signs of trauma EYES: PERRLA, EOMI, sclera anicteric, conjunctiva pale ENT: Auricles normal inspection, hearing grossly normal, nares patent, oropharynx clear without exudates. Dry mucosa NECK: Normal ROM, supple, no lymphadenopathy, JVD, or masses LUNGS: Breath sounds equal, clear to auscultation bilaterally. No wheezes, and no crackles HEART: Regular rate and rhythm, normal S1 and S2, no murmurs, rubs or gallops ABDOMEN: Soft, nontender, normoactive bowel sounds. No guarding, no rebound. No masses EXTREMITIES: Normal range of motion, +trace edema. No clubbing or cyanosis. No cords, erythema, or tenderness NEUROLOGICAL: Cranial nerves II through XII grossly intact. Normal speech, normal gait SKIN: Warm, Dry, normal turgor, no rashes or lesions noted. - Medical Decision Making Pt sent for anemia, unclear source at present. No prior transfusions in past. Full anemia workup pending. Also with recent significant weight gain. Will plan for admission for anemia/CHF.
[2017-06-17] MEDS ORDERED: ACETAMINOPHEN 325 MG TABLET (FP) PO ONE (09:11)
[2017-06-17] MEDS ORDERED: ACETAMINOPHEN 325 MG TABLET (FP) ONE (09:28)
[2017-06-17 09:29] LABS: INR 1.06 (0.82-1.09)
[2017-06-17 09:39] LABS: MAGNESIUM 2.2 mg/dL (1.8-2.4)
[2017-06-17 09:43] LABS: CPK 95 IU/L (26-192); LDH 254 U/L (84-246); TROPONIN I < 0.02 ng/ml (0.00-0.05)
[2017-06-17] MEDS ORDERED: FUROSEMIDE 40 MG/4 ML INJECTABLE VIAL IVPUSH ONE (10:24)
[2017-06-17] MEDS ORDERED: FUROSEMIDE 40 MG/4 ML INJECTABLE VIAL ONE (10:38)
[2017-06-17] MEDS ORDERED: HEPARIN NA (PORCINE) 5,000 UNITS/ML 1ML VIAL SQ SCH (12:30)
--- NOTE | 2017-06-17 12:56 | CON.CARD ---
Consult Consult Specialty:: Cardiology Reason for Consultation:: waekness/ anemia - History of Present Illness History of Present Illness: Patient is a 72F with history of COPD, CHF, CAD s/p stenting, mutliple arterial vascular issues, and IDDM here today complaining of 2 weeks of fatigue, lightheadedness, and dizziness for the past two weeks. She is also complaining of associated decreased activity level and upper abdominal pain. She denies chest pain, shortness of breath, nausea, vomiting and diaphoresis. She says that her PMD says she was anemic, which was the reason for her presentation for the hospital today. She denies melena, coffee ground emesis, blood in urine, and blood in stool. She reports never having a colonoscopy but did get test called Colon Triposo, which was negative. PMH DM, ASHD moderate to severe (mid LAD), c. cath 11/2014, HTN, Hyperlipidemia, Morbid obesity, Anxiety, CVA (mild - no residuals), PAD 80 % Right ICA stenosis duplex and CTA/4V angio, Severe aortic stenosis with GHANSHYAM calculated 0.9 cm2, and a surgical history of RTKR. 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 - History Source History Provided By: Patient, Medical Record - Past Medical History Cardio/Vascular: Yes: Aortic Stenosis, CAD, CHF, HTN, Other (carotid artery disease) Gastrointestinal: Yes: Constipation Renal/: Yes: Renal Inusuff Psych: Yes: Anxiety Musculoskeletal: Yes: Chronic low back pain Endocrine: Yes: Diabetes Mellitus - Alcohol/Substance Use Hx Alcohol Use: No - Smoking History Smoking history: Former smoker Have you smoked in the past 12 months: No Aproximately how many cigarettes per day: 0 If you are a former smoker, when did you quit?: 25 years ago Home Medications - Allergies Allergies/Adverse Reactions: Allergies Allergy/AdvReac Type Severity Reaction Status Date / Time No Known Allergies Allergy Verified 06/17/17 06:21 - Home Medications Home Medications: Ambulatory Orders Insulin Glargine,Hum.rec.anlog [Lantus] 10 unit SQ BID 04/05/12 Metformin HCl [Glucophage -] 500 mg PO BID 04/05/12 Metoprolol Succinate [Toprol XL -] 25 mg PO DAILY 04/05/12 Pantoprazole Suspension [Protonix Packets For Oral Suspension -] 40 mg PO DAILY 07/13/12 Vitamin E 800 unit PO BID 07/13/12 Furosemide [Lasix -] 20 mg PO DAILY PRN 04/28/13 Lorazepam 0.5 mg PO PRN PRN 04/28/13 Lidocaine 5% Patch [Lidoderm -] 1 patch TP TID PRN 06/03/13 Cholecalciferol (Vitamin D3) [Vitamin D3] 10,000 unit PO HS 11/12/14 Aspirin Coated [Ecotrin -] 81 mg PO DAILY 07/22/15 Atorvastatin Ca [Lipitor] 80 mg PO HS 07/22/15 Clopidogrel Bisulfate [Plavix -] 75 mg PO Q48H 07/22/15 Furosemide [Lasix -] 40 mg PO PRN PRN 07/22/15 Pioglitazone HCl [Actos] 45 mg PO HS 07/22/15 Tramadol HCl 50 mg PO Q4H #30 tablet MDD 6 12/08/16 Ciclopirox Olamine [Ciclodan] 90 gm TP BID 02/04/17 Magnesium Oxide [Magnesium] 400 mg PO BID 02/04/17 Clopidogrel Bisulfate [Plavix -] 75 mg PO Q2D@1000 tablet 02/06/17 Furosemide [Lasix -] 20 mg PO DAILY tablet 02/06/17 Magnesium Oxide [Mag-Ox -] 400 mg PO BID tablet 02/06/17 Metformin HCl [Glucophage -] 500 mg PO BIDI tablet 02/06/17 Pioglitazone HCl [Actos] 45 mg PO HS tablet 02/06/17 Ranitidine [Zantac -] 150 mg PO DAILY tablet 02/06/17 Insulin Glargine,Hum.rec.anlog [Lantus (nf)] 5 units SQ BID 06/17/17 Sertraline HCl [Zoloft] 25 mg PO 06/17/17 Cyanocobalamin [Vitamin B12 -] 2,000 mcg PO DAILY 06/18/17 Family Disease History - Family Disease History Family Disease History: Diabetes: Mother, Brother Review of Systems - Review of Systems Constitutional: reports: Weakness Eyes: reports: No Symptoms HENT: reports: No Symptoms Neck: reports: No Symptoms Cardiovascular: reports: No Symptoms Gastrointestinal: reports: No Symptoms Genitourinary: reports: No Symptoms Breasts: reports: No Symptoms Reported Musculoskeletal: reports: No Symptoms Integumentary: reports: No Symptoms Neurological: reports: No Symptoms Endocrine: reports: No Symptoms Hematology/Lymphatic: reports: No Symptoms Psychiatric: reports: No Symptoms Vital Signs: Vital Signs Temperature 97.1 F L 06/17/17 06:21 Pulse Rate 84 06/17/17 06:21 Respiratory Rate 18 06/17/17 06:21 Blood Pressure 169/66 06/17/17 06:21 O2 Sat by Pulse Oximetry (%) 96 06/17/17 06:21 Constitutional: Yes: Well Nourished, No Distress, Calm Eyes: Yes: WNL, Conjunctiva Clear, EOM Intact HENT: Yes: WNL, Atraumatic, Normocephalic Neck: Yes: WNL, Supple, Trachea Midline Respiratory: Yes: WNL, Regular, CTA Bilaterally Gastrointestinal: Yes: WNL, Normal Bowel Sounds Renal/: Yes: WNL Cardiovascular: Yes: WNL, Regular Rate and Rhythm Musculoskeletal: Yes: WNL Extremities: Yes: WNL Integumentary: Yes: WNL Neurological: Yes: WNL, Alert, Oriented ...Motor Strength: WNL Psychiatric: Yes: WNL, Alert, Oriented - Other Data Labs, Other Data: CBC, BMP 06/17/17 06:34 06/17/17 06:34 INR, PTT INR 1.06 (0.82-1.09) 06/17/17 08:45 Troponin, BNP 06/17/17 08:45 Troponin I < 0.02 B-Natriuretic Peptide 8954.40 H Troponin, BNP 06/17/17 08:45 Troponin I < 0.02 B-Natriuretic Peptide 8954.40 H Imaging - Results Chest X-ray: Image Reviewed (basilar congestion) EKG: Image Reviewed (sr rep abn) Problem List - Problems (1) Congestive heart failure (CHF) Code(s): I50.9 - HEART FAILURE, UNSPECIFIED Qualifiers: Congestive heart failure type: diastolic Congestive heart failure chronicity: acute on chronic Qualified Code(s): I50.33 - Acute on chronic diastolic (congestive) heart failure (2) DVT prophylaxis Code(s): [id number] - (3) Depression Code(s): F32.9 - MAJOR DEPRESSIVE DISORDER, SINGLE EPISODE, UNSPECIFIED Qualifiers: Depression Type: major depressive disorder Major depression recurrence: recurrent Active/Remission status: currently active Psychotic features: without psychotic features (4) HLD (hyperlipidemia) Code(s): E78.5 - HYPERLIPIDEMIA, UNSPECIFIED Qualifiers: Hyperlipidemia type: unspecified Qualified Code(s): E78.5 - Hyperlipidemia , unspecified (5) Symptomatic anemia Code(s): D64.9 - ANEMIA, UNSPECIFIED (6) Acute coronary syndrome Code(s): I24.9 - ACUTE ISCHEMIC HEART DISEASE, UNSPECIFIED (7) Anxiety Code(s): F41.9 - ANXIETY DISORDER, UNSPECIFIED (8) Aortic stenosis Code(s): I35.0 - NONRHEUMATIC AORTIC (VALVE) STENOSIS Qualifiers: Cardiac valve disease etiology: nonrheumatic Qualified Code(s): I35.0 - Nonrheumatic aortic (valve) stenosis (9) Bloody diarrhea Code(s): R19.7 - DIARRHEA, UNSPECIFIED (10) Carotid artery disease Code(s): I77.9 - DISORDER OF ARTERIES AND ARTERIOLES, UNSPECIFIED (11) Cellulitis Code(s): L03.90 - CELLULITIS, UNSPECIFIED Qualifiers: Site of cellulitis: extremity Site of cellulitis of extremity: lower extremity Laterality: right Qualified Code(s): L03.115 - Cellulitis of right lower limb (12) Diabetes Code(s): E11.9 - TYPE 2 DIABETES MELLITUS WITHOUT COMPLICATIONS Qualifiers: Diabetes mellitus type: type 2 Diabetes mellitus complication status: with circulatory complication Diabetes mellitus complication detail: with other circulatory complications Diabetes mellitus joint terminal attack controller insulin use: with joint terminal attack controller use Qualified Code(s): E11.59 - Type 2 diabetes mellitus with other circulatory complications; Z79.4 - buttermaker continuous churn (current) use of insulin; Z79.4 - buttermaker continuous churn (current) use of insulin; Z79.4 - buttermaker continuous churn (current) use of insulin; Z79.4 - buttermaker continuous churn (current) use of insulin (13) Epistaxis Code(s): R04.0 - EPISTAXIS (14) Fracture of metatarsal bone Code(s): S92.309A - FRACTURE OF UNSP METATARSAL BONE(S), UNSP FOOT, INIT (15) Hypertension Code(s): I10 - ESSENTIAL (PRIMARY) HYPERTENSION Qualifiers: Hypertension type: essential hypertension Qualified Code(s): I10 - Essential (primary) hypertension (16) Morbid obesity Code(s): E66.01 - MORBID (SEVERE) OBESITY DUE TO EXCESS CALORIES (17) Muscle strain of left lower extremity Code(s): S86.912A - STRAIN OF UNSP MUSC/TEND AT LOWER LEG LEVEL, LEFT LEG, INIT Qualifiers: Encounter type: initial encounter Qualified Code(s): S86.912A - Strain of unspecified muscle(s) and tendon(s) at lower leg level, left leg, initial encounter (18) Renal insufficiency Code(s): N28.9 - DISORDER OF KIDNEY AND URETER, UNSPECIFIED (19) Spinal stenosis Code(s): M48.00 - SPINAL STENOSIS, SITE UNSPECIFIED Qualifiers: Spinal region: unspecified Qualified Code(s): M48.00 - Spinal stenosis, site unspecified Assessment/Plan Anemia Guiac negative 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 cath 11/2014, HTN, Hyperlipidemia, Morbid obesity, Anxiety, CVA (mild - no residuals), PAD 80 % Right ICA stenosis duplex and CTA/4V angio, Severe aortic stenosis with GHANSHYAM calculated 0.9 cm2, Plan; CT abd /l ext to r/o retroperitoneal/thigh bleed if negative will proceed with endoscopy/colonoscopy of DAPT for now cont telemetry.
--- NOTE | 2017-06-17 13:50 | PN ---
Teaching Attending Note Name of Resident: Rajendra Sim ATTENDING PHYSICIAN STATEMENT I saw and evaluated the patient. I reviewed the resident's note and discussed the case with the resident. I agree with the resident's findings and plan as documented. SUBJECTIVE: OBJECTIVE: Vital Signs Period Temp Pulse Resp BP Sys/Wade Pulse Ox Last 24 Hr 97.1 F-98.4 F 84-87 18-18 169-179/66-71 95-96 Home Medications Medication Instructions Recorded Insulin Glargine,Hum.rec.anlog 10 unit SQ BID 04/05/12 [Lantus] Metformin HCl [Glucophage -] 500 mg PO BID 04/05/12 Metoprolol Succinate [Toprol XL -] 25 mg PO DAILY 04/05/12 Pantoprazole Suspension [Protonix 40 mg PO DAILY 07/13/12 Packets For Oral Suspension -] Vitamin E 800 unit PO BID 07/13/12 Furosemide [Lasix -] 20 mg PO DAILY PRN 04/28/13 Lorazepam 0.5 mg PO PRN PRN 04/28/13 Lidocaine 5% Patch [Lidoderm -] 1 patch TP TID PRN 06/03/13 Cholecalciferol (Vitamin D3) 10,000 unit PO HS 11/12/14 [Vitamin D3] Aspirin Coated [Ecotrin -] 81 mg PO DAILY 07/22/15 Atorvastatin Ca [Lipitor] 80 mg PO HS 07/22/15 Clopidogrel Bisulfate [Plavix -] 75 mg PO Q48H 07/22/15 Furosemide [Lasix -] 40 mg PO PRN PRN 07/22/15 Pioglitazone HCl [Actos] 45 mg PO HS 07/22/15 Tramadol HCl 50 mg PO Q4H #30 tablet MDD 6 12/08/16 Ciclopirox Olamine [Ciclodan] 90 gm TP BID 02/04/17 Magnesium Oxide [Magnesium] 400 mg PO BID 02/04/17 Clopidogrel Bisulfate [Plavix -] 75 mg PO Q2D@1000 tablet 02/06/17 Furosemide [Lasix -] 20 mg PO DAILY tablet 02/06/17 Magnesium Oxide [Mag-Ox -] 400 mg PO BID tablet 02/06/17 Metformin HCl [Glucophage -] 500 mg PO BIDI tablet 02/06/17 Pioglitazone HCl [Actos] 45 mg PO HS tablet 02/06/17 Ranitidine [Zantac -] 150 mg PO DAILY tablet 02/06/17 Sertraline HCl [Zoloft] 25 mg PO 06/17/17 Laboratory Tests 06/17/17 06/17/17 06/17/17 06:33 06:34 06:34 WBC 5.9 RBC 3.34 L Hgb 8.5 L D Hct 26.3 L D MCV 78.6 L MCH 25.4 L MCHC 32.3 RDW 15.5 D Plt Count 236 MPV 8.0 Neutrophils % 59.9 Lymphocytes % 25.0 Monocytes % 9.9 Eosinophils % 4.4 Basophils % 0.8 Retic Count PT with INR 12.00 H INR 1.06 Sodium Potassium Chloride Carbon Dioxide Anion Gap BUN Creatinine Creat Clearance w eGFR Random Glucose Calcium Magnesium Total Bilirubin AST ALT Alkaline Phosphatase LD Total Creatine Kinase Troponin I B-Natriuretic Peptide Total Protein Albumin Stool Occult Blood Blood Type AB POSITIVE Antibody Screen Negative Crossmatch See Detail 06/17/17 06/17/17 06/17/17 06:34 08:45 08:45 WBC RBC Hgb Hct MCV MCH MCHC RDW Plt Count MPV Neutrophils % Lymphocytes % Monocytes % Eosinophils % Basophils % Retic Count 1.00 PT with INR 12.00 H INR 1.06 Sodium 140 Potassium 4.5 Chloride 106 Carbon Dioxide 27 Anion Gap 7 L BUN 34 H Creatinine 1.5 H Creat Clearance w eGFR 34.04 Random Glucose 124 H D Calcium 8.9 Magnesium Total Bilirubin 0.5 D AST 16 ALT 16 Alkaline Phosphatase 104 LD Total Creatine Kinase Troponin I B-Natriuretic Peptide Total Protein 7.2 Albumin 3.4 Stool Occult Blood Blood Type Antibody Screen Crossmatch 06/17/17 06/17/17 06/17/17 08:45 09:12 10:29 WBC RBC Hgb Hct MCV MCH MCHC RDW Plt Count MPV Neutrophils % Lymphocytes % Monocytes % Eosinophils % Basophils % Retic Count PT with INR INR Sodium Potassium Chloride Carbon Dioxide Anion Gap BUN Creatinine Creat Clearance w eGFR Random Glucose Calcium Magnesium 2.2 Total Bilirubin AST ALT Alkaline Phosphatase LD Total 254 H Creatine Kinase 95 Troponin I < 0.02 B-Natriuretic Peptide 8954.40 H Total Protein Albumin Stool Occult Blood Negative Blood Type AB POSITIVE Antibody Screen Crossmatch ASSESSMENT AND PLAN:
--- NOTE | 2017-06-17 14:02 | HP ---
CHIEF COMPLAINT:weakness PCP:Dr. Barbosa HISTORY OF PRESENT ILLNESS: 72 yo F with PMHx of COPD, CHF, CAD s/p stenting, PAD, and IDDM presents with a two week history of progressive weakness. She states that for the past few weeks she just has not been feeling herself. She is complaining of lightheadness , fatigue, and decreased exercise tolerance. She also has some associated LUQ vague abdominal pain worse. She states that she has been eating a low sodium diet, no increase in fluid intake, no orthopnea, but does have some increase swelling of her legs, 7lbs weight gain and abdominal growth. She is on ASA and plavix given her CAD history and last colonoscopy was 11 yrs ago. She denies melenic stools, PRBPR,or other signs of active bleeding. Denies CP,MARTÍNEZ, SOB, palpitations, N/V. ER course was notable for: (1)[id number] (2)CBC shows Hgb 8.2--> 1 unit of PRBC ordered. (3)EKG shows NSR with rate of [address] elevation or depression. (4)CXR shows vascular congestion. Recent Travel: Denies PAST MEDICAL HISTORY:COPD, CHF, CAD s/p stenting, PAD, and IDDM PAST SURGICAL HISTORY: c-sections x2 , Right Knee repair Social History: Smoking:quit 25 yrs ago 50pack year history. Alcohol:socially (1-2 drinks per week) Drugs: denies Family History: DM (mother, brother, Father) Allergies No Known Allergies Allergy (Verified 06/17/17 06:21) HOME MEDICATIONS: Home Medications Medication Instructions Recorded Insulin Glargine,Hum.rec.anlog 10 unit SQ BID 04/05/12 [Lantus] Metformin HCl [Glucophage -] 500 mg PO BID 04/05/12 Metoprolol Succinate [Toprol XL -] 25 mg PO DAILY 04/05/12 Pantoprazole Suspension [Protonix 40 mg PO DAILY 07/13/12 Packets For Oral Suspension -] Vitamin E 800 unit PO BID 07/13/12 Furosemide [Lasix -] 20 mg PO DAILY PRN 04/28/13 Lorazepam 0.5 mg PO PRN PRN 04/28/13 Lidocaine 5% Patch [Lidoderm -] 1 patch TP TID PRN 06/03/13 Cholecalciferol (Vitamin D3) 10,000 unit PO HS 11/12/14 [Vitamin D3] Aspirin Coated [Ecotrin -] 81 mg PO DAILY 07/22/15 Atorvastatin Ca [Lipitor] 80 mg PO HS 07/22/15 Clopidogrel Bisulfate [Plavix -] 75 mg PO Q48H 07/22/15 Furosemide [Lasix -] 40 mg PO PRN PRN 07/22/15 Pioglitazone HCl [Actos] 45 mg PO HS 07/22/15 Tramadol HCl 50 mg PO Q4H #30 tablet MDD 6 12/08/16 Ciclopirox Olamine [Ciclodan] 90 gm TP BID 02/04/17 Magnesium Oxide [Magnesium] 400 mg PO BID 02/04/17 Clopidogrel Bisulfate [Plavix -] 75 mg PO Q2D@1000 tablet 02/06/17 Furosemide [Lasix -] 20 mg PO DAILY tablet 02/06/17 Magnesium Oxide [Mag-Ox -] 400 mg PO BID tablet 02/06/17 Metformin HCl [Glucophage -] 500 mg PO BIDI tablet 02/06/17 Pioglitazone HCl [Actos] 45 mg PO HS tablet 02/06/17 Ranitidine [Zantac -] 150 mg PO DAILY tablet 02/06/17 Sertraline HCl [Zoloft] 25 mg PO 06/17/17 REVIEW OF SYSTEMS CONSTITUTIONAL: generalized weakness, malaise Absent: fever, chills, diaphoresis, , loss of appetite, weight change HEENT: Absent: rhinorrhea, nasal congestion, throat pain, throat swelling, difficulty swallowing, mouth swelling, ear pain, eye pain, visual changes CARDIOVASCULAR: lightheadedness, peripheral edema Absent: chest pain, syncope, palpitations, irregular heart rate, RESPIRATORY: Absent: cough, shortness of breath, dyspnea with exertion, orthopnea, wheezing, stridor, hemoptysis GASTROINTESTINAL:abdominal pain, abdominal distension, Absent: nausea, vomiting, diarrhea, constipation, melena, hematochezia GENITOURINARY: Absent: dysuria, frequency, urgency, hesitancy, hematuria, flank pain, genital pain MUSCULOSKELETAL: Absent: myalgia, arthralgia, joint swelling, back pain, neck pain SKIN: Absent: rash, itching, pallor HEMATOLOGIC/IMMUNOLOGIC: Absent: easy bleeding, easy bruising, lymphadenopathy, frequent infections ENDOCRINE: Absent: unexplained weight gain, unexplained weight loss, heat intolerance, cold intolerance NEUROLOGIC: Absent: headache, focal weakness or paresthesias, dizziness, unsteady gait, seizure, mental status changes, bladder or bowel incontinence PSYCHIATRIC: Absent: anxiety, depression, suicidal or homicidal ideation, hallucinations. PHYSICAL EXAMINATION Vital Signs - 24 hr 06/17/17 06/17/17 06:21 13:39 Temperature 97.1 F L 98.4 F Pulse Rate 84 Pulse Rate [ 87 Left Radial] Respiratory 18 18 Rate Blood Pressure 169/66 Blood Pressure 179/71 [Left Arm] O2 Sat by Pulse 96 95 Oximetry (%) GENERAL: AAOx3, NAD HEAD:AT/NC EYES:PERRLA,EOMI ,sclera pale, conjunctiva clear. No lid lag. EARS, NOSE, THROAT: Moist mucous membranes. NECK:supple, no JVD LUNGS:Bibasilar rales. No wheezes, No accessory muscle use. HEART: Regular rate and rhythm, normal S1 and S2. 4/6 MAX RSB with radiation to carotids. ABDOMEN: Soft, mild LUQ tenderness, not distended, normoactive bowel sounds, no guarding, no rebound, no masses. MUSCULOSKELETAL: decreased ROM of lower ext. 2/2 pain . No CVA tenderness. UPPER EXTREMITIES: 2+ pulses, warm, well-perfused. No cyanosis. No clubbing. No peripheral edema. LOWER EXTREMITIES: 2+ pulses, warm, well-perfused. No calf tenderness. 1+ pitting edema. R knee with scar from previous surgery. NEUROLOGICAL: Cranial nerves II-XII intact. Normal speech. PSYCHIATRIC:depressed mood. SKIN:cool, dry, normal turgor, no rashes or lesions noted. Laboratory Results - last 24 hr 06/17/17 06/17/17 06/17/17 06:33 06:34 06:34 WBC 5.9 RBC 3.34 L Hgb 8.5 L D Hct 26.3 L D MCV 78.6 L MCH 25.4 L MCHC 32.3 RDW 15.5 D Plt Count 236 MPV 8.0 Neutrophils % 59.9 Lymphocytes % 25.0 Monocytes % 9.9 Eosinophils % 4.4 Basophils % 0.8 Retic Count PT with INR 12.00 H INR 1.06 Sodium Potassium Chloride Carbon Dioxide Anion Gap BUN Creatinine Creat Clearance w eGFR Random Glucose Calcium Magnesium Total Bilirubin AST ALT Alkaline Phosphatase LD Total Creatine Kinase Troponin I B-Natriuretic Peptide Total Protein Albumin Stool Occult Blood Blood Type AB POSITIVE Antibody Screen Negative Crossmatch See Detail 06/17/17 06/17/17 06/17/17 06:34 08:45 08:45 WBC RBC Hgb Hct MCV MCH MCHC RDW Plt Count MPV Neutrophils % Lymphocytes % Monocytes % Eosinophils % Basophils % Retic Count 1.00 PT with INR 12.00 H INR 1.06 Sodium 140 Potassium 4.5 Chloride 106 Carbon Dioxide 27 Anion Gap 7 L BUN 34 H Creatinine 1.5 H Creat Clearance w eGFR 34.04 Random Glucose 124 H D Calcium 8.9 Magnesium Total Bilirubin 0.5 D AST 16 ALT 16 Alkaline Phosphatase 104 LD Total Creatine Kinase Troponin I B-Natriuretic Peptide Total Protein 7.2 Albumin 3.4 Stool Occult Blood Blood Type Antibody Screen Crossmatch 06/17/17 06/17/17 06/17/17 08:45 09:12 10:29 WBC RBC Hgb Hct MCV MCH MCHC RDW Plt Count MPV Neutrophils % Lymphocytes % Monocytes % Eosinophils % Basophils % Retic Count PT with INR INR Sodium Potassium Chloride Carbon Dioxide Anion Gap BUN Creatinine Creat Clearance w eGFR Random Glucose Calcium Magnesium 2.2 Total Bilirubin AST ALT Alkaline Phosphatase LD Total 254 H Creatine Kinase 95 Troponin I < 0.02 B-Natriuretic Peptide 8954.40 H Total Protein Albumin Stool Occult Blood Negative Blood Type AB POSITIVE Antibody Screen Crossmatch ASSESSMENT/PLAN: 72 yo F with PMHx of COPD, CHF, CAD s/p stenting, PAD, and IDDM presents with a two week history of progressive weakness will be admitted to telemetry for symptomatic anemia and acute of chronic CHF. Problem List - Problem (1) Symptomatic anemia Assessment/Plan: May be a slow chronic blood loss 2/2 * NO signs of active bleed. * Will transfuse 1 unit PRBC and repeat H/H * Dr. Mccann GI consult for EGD and colonscopy. * AC held for now however risks of adverse CV event outway risk of bleeding should be restarted gabriel. (2) Congestive heart failure (CHF) Assessment/Plan: Most likely secondary to anemia * Admit to telemetry * echo pending. * Dr. Martell consulted. * Daily weights. * Fluid restrict * Sodium/ diabetic diet. (3) Acute coronary syndrome Assessment/Plan: Last stress test less than one year ago was normal . * ASA and plavix held for possible GI bleed. * will continue statin for now. * Cardiology for further instruction. (4) Aortic stenosis Assessment/Plan: Echo pending. (5) Diabetes Assessment/Plan: SHe states last A1c was <6 * ISS with novolog ACHS. * BGM ACHS * Sodium/Diabetic diet. (6) Hypertension (7) Morbid obesity (8) Spinal stenosis (9) HLD (hyperlipidemia) Assessment/Plan: Will continue statin. (10) Depression Assessment/Plan: Continue Zoloft HS (11) DVT prophylaxis Assessment/Plan: held 2/2 potential bleeding. Visit type - Emergency Visit Emergency Visit: Yes ED Registration Date: 06/17/17 Care time: The patient presented to the Emergency Department on the above date and was hospitalized for further evaluation of their emergent condition. - New Patient This patient is new to me today: Yes Date on this admission: 06/17/17 - Critical Care Critical Care patient: No
[2017-06-17] MEDS ORDERED: LIDOCAINE 5% TOPICAL PATCH TP PRN (14:18)
[2017-06-17] MEDS ORDERED: LORazepam 0.5 MG TABLET PO PRN (14:18)
[2017-06-17] MEDS ORDERED: traMADol HCL 50 MG TABLET PO PRN (14:30)
[2017-06-17] MEDS ORDERED: INSULIN (NOVOLOG) ASPART 100 UNITS/ML 10ML VIAL ONE (16:09)
[2017-06-17] MEDS: INSULIN SLIDING SCALE (NOVOLOG) 1 VIAL SQ SCH ×3 (16:12→21:44)
--- NOTE | 2017-06-17 17:26 | EKG ---
Test Reason : Blood Pressure : / mmHG Vent. Rate : 085 BPM Atrial Rate : 085 BPM P-R Int : 176 ms QRS Dur : 088 ms QT Int : 374 ms P-R-T Axes : 073 079 115 degrees QTc Int : 445 ms NORMAL SINUS RHYTHM NONSPECIFIC ST AND T WAVE ABNORMALITY ABNORMAL ECG WHEN COMPARED WITH ECG OF 04-FEB-2017 09:53, Confirmed by ANGLE RAY MD ([id number]) on 06/17/2017 5:26:33 PM Referred By: Confirmed By:ANGLE RAY MD
[2017-06-17] MEDS: INSULIN DETEMIR 100 UNITS/ML MDV SQ SCH (18:39)
--- NOTE | 2017-06-17 19:11 | CON.GI ---
Consult Consult Specialty:: GI Reason for Consultation:: Anemia - History of Present Illness History of Present Illness: Chart reviewed. A 72 yof with significant cardiac and vascular history on ASA and Plavix, among other medications, admitted for 2 weeks of progressive exertional dyspnea and fatique. Found to be in decompesated CHF, Hgb 8 and negative history of melena, hematochezia, hematemesis, dyspepsia, GERD-like symptoms, dusphagia, odynophagia , fever, or jaundice. The patient reports negative cologuard in 2016, last colonoscopy 10 y. ago, EGD more than 10 y ago. - History Source History Provided By: Patient Limitations to Obtaining History: No Limitations - Past Medical History Cardio/Vascular: Yes: Aortic Stenosis, CAD, CHF, HTN, Other (carotid artery disease) Gastrointestinal: Yes: Constipation Renal/: Yes: Renal Inusuff Psych: Yes: Anxiety Musculoskeletal: Yes: Chronic low back pain Endocrine: Yes: Diabetes Mellitus - Alcohol/Substance Use Hx Alcohol Use: No - Smoking History Smoking history: Former smoker Have you smoked in the past 12 months: No Aproximately how many cigarettes per day: 0 If you are a former smoker, when did you quit?: 25 years ago Home Medications - Allergies Allergies/Adverse Reactions: Allergies Allergy/AdvReac Type Severity Reaction Status Date / Time No Known Allergies Allergy Verified 06/17/17 06:21 - Home Medications Home Medications: Ambulatory Orders Insulin Glargine,Hum.rec.anlog [Lantus] 10 unit SQ BID 04/05/12 Metformin HCl [Glucophage -] 500 mg PO BID 04/05/12 Metoprolol Succinate [Toprol XL -] 25 mg PO DAILY 04/05/12 Pantoprazole Suspension [Protonix Packets For Oral Suspension -] 40 mg PO DAILY 07/13/12 Vitamin E 800 unit PO BID 07/13/12 Furosemide [Lasix -] 20 mg PO DAILY PRN 04/28/13 Lorazepam 0.5 mg PO PRN PRN 04/28/13 Lidocaine 5% Patch [Lidoderm -] 1 patch TP TID PRN 06/03/13 Cholecalciferol (Vitamin D3) [Vitamin D3] 10,000 unit PO HS 11/12/14 Aspirin Coated [Ecotrin -] 81 mg PO DAILY 07/22/15 Atorvastatin Ca [Lipitor] 80 mg PO HS 07/22/15 Clopidogrel Bisulfate [Plavix -] 75 mg PO Q48H 07/22/15 Furosemide [Lasix -] 40 mg PO PRN PRN 07/22/15 Pioglitazone HCl [Actos] 45 mg PO HS 07/22/15 Tramadol HCl 50 mg PO Q4H #30 tablet MDD 6 12/08/16 Ciclopirox Olamine [Ciclodan] 90 gm TP BID 02/04/17 Magnesium Oxide [Magnesium] 400 mg PO BID 02/04/17 Clopidogrel Bisulfate [Plavix -] 75 mg PO Q2D@1000 tablet 02/06/17 Furosemide [Lasix -] 20 mg PO DAILY tablet 02/06/17 Magnesium Oxide [Mag-Ox -] 400 mg PO BID tablet 02/06/17 Metformin HCl [Glucophage -] 500 mg PO BIDI tablet 02/06/17 Pioglitazone HCl [Actos] 45 mg PO HS tablet 02/06/17 Ranitidine [Zantac -] 150 mg PO DAILY tablet 02/06/17 Insulin Glargine,Hum.rec.anlog [Lantus (nf)] 5 units SQ BID 06/17/17 Sertraline HCl [Zoloft] 25 mg PO 06/17/17 Family Disease History - Family Disease History Family History: Unremarkable Family Disease History: Diabetes: Mother, Brother Review of Systems Findings/Remarks: please refer to H&P Physical Exam-GI Vital Signs: Vital Signs Temperature 98.8 F 06/17/17 18:11 Pulse Rate 78 06/17/17 18:11 Respiratory Rate 20 06/17/17 18:11 Blood Pressure 139/64 06/17/17 18:11 O2 Sat by Pulse Oximetry (%) 97 06/17/17 18:11 Constitutional: Yes: Well Nourished, No Distress, Calm Eyes: Yes: Conjunctiva Clear HENT: Yes: Atraumatic Neck: Yes: Supple Cardiovascular: Yes: Regular Rate and Rhythm Respiratory: Yes: Regular ...Auscultate: Yes: Normoactive Bowel Sounds ...Palpate: Yes: Soft. No: Firm/Rigid, Tenderness, Tenderness, Epigastium, Tenderness, Rebound ...Percussion: No: Fluid Wave Neurological: Yes: Alert, Oriented Labs: CBC, BMP 06/17/17 06:34 06/17/17 06:34 INR, PTT INR 1.06 (0.82-1.09) 06/17/17 08:45 CBCD WBC 5.9 K/mm3 (4.0-10.0) 06/17/17 06:34 RBC 3.34 M/mm3 (3.60-5.2) L 06/17/17 06:34 Hgb 8.5 GM/dL (10.7-15.3) L D 06/17/17 06:34 Hct 26.3 % (32.4-45.2) L D 06/17/17 06:34 MCV 78.6 fl (80-96) L 06/17/17 06:34 MCHC 32.3 g/dl (32.0-36.0) 06/17/17 06:34 RDW 15.5 % (11.6-15.6) D 06/17/17 06:34 Plt Count 236 K/MM3 (134-434) 06/17/17 06:34 MPV 8.0 fl (7.5-11.1) 06/17/17 06:34 CMP Sodium 140 mmol/L (136-145) 06/17/17 06:34 Potassium 4.5 mmol/L (3.5-5.1) 06/17/17 06:34 Chloride 106 mmol/L (98-107) 06/17/17 06:34 Carbon Dioxide 27 mmol/L (21-32) 06/17/17 06:34 Anion Gap 7 (8-16) L 06/17/17 06:34 BUN 34 mg/dL (7-18) H 06/17/17 06:34 Creatinine 1.5 mg/dL (0.55-1.02) H 06/17/17 06:34 Creat Clearance w eGFR 34.04 (>60) 06/17/17 06:34 Calcium 8.9 mg/dL (8.5-10.1) 06/17/17 06:34 Total Bilirubin 0.5 mg/dL (0.2-1.0) D 06/17/17 06:34 AST 16 U/L (15-37) 06/17/17 06:34 ALT 16 U/L (12-78) 06/17/17 06:34 Alkaline Phosphatase 104 U/L (45-117) 06/17/17 06:34 Total Protein 7.2 g/dl (6.4-8.2) 06/17/17 06:34 Albumin 3.4 g/dl (3.4-5.0) 06/17/17 06:34 hemoccult negative Problem List - Problems (1) Congestive heart failure (CHF) Code(s): I50.9 - HEART FAILURE, UNSPECIFIED Qualifiers: Congestive heart failure type: diastolic Congestive heart failure chronicity: acute on chronic Qualified Code(s): I50.33 - Acute on chronic diastolic (congestive) heart failure (2) Symptomatic anemia Code(s): D64.9 - ANEMIA, UNSPECIFIED Assessment/Plan Symptomatic anemia in a high risk patient on ASA and Plavix. Recieved 2 u PRBC, feels much better after transfusion. The anemia is likely multifactorial, chronic. No signs of ongoing GI blood loss. Cardiology clearance/evaluation prior to EGD/COlonsocopy and holding Plavix Dexilant 60 mp po qd Other immediate care as per cardiology and primary teams Discussed with the patient and her son
[2017-06-17 20:24] LABS: MCH 26.1 pg (25.7-33.7); MCHC 32.7 g/dl (32.0-36.0); MEAN CELL VOLUME 79.8 fl (80-96); MEAN PLT VOLUME 8.4 fl (7.5-11.1); PLATELET COUNT 248 K/MM3 (134-434); RDW 15.5 % (11.6-15.6); WHITE BLOOD COUNT 7.4 K/mm3 (4.0-10.0)
[2017-06-17 20:47] LABS: CPK 93 IU/L (26-192); TROPONIN I < 0.02 ng/ml (0.00-0.05)
[2017-06-17] MEDS: MAGNESIUM OXIDE 400 MG TABLET (FP) PO SCH (21:42)
[2017-06-17] MEDS ORDERED: VITAMIN E 400 INTERNATIONAL-UNITS CAPSULE (FP) PO SCH ×2 (22:00→22:22)
[2017-06-17] MEDS ORDERED: PATIENT'S OWN MEDICATION (NON-FORMULARY) (Cholecalciferol (Vitamin D3) [Vitamin D3] 10,000 PO SCH (22:00)
[2017-06-17] MEDS ORDERED: ATORVASTATIN CA 80 MG TABLET (FP) PO SCH (22:00)
[2017-06-17] MEDS ORDERED: SERTRALINE HCL 25 MG TABLET (FP) PO SCH (22:00)
[2017-06-17] MEDS ORDERED: ATORVASTATIN CA 40 MG TABLET (FP) PO SCH (22:22)
[2017-06-17] MEDS: ATORVASTATIN CA 40 MG TABLET (FP) PO SCH (22:52)
[2017-06-17] MEDS: VITAMIN E 400 INTERNATIONAL-UNITS CAPSULE (FP) PO SCH (22:52)
[2017-06-18 06:06] LABS: HAPTOGLOBIN 98 mg/dL (34-200); TRANSFERRIN 334 mg/dL (200-370)
[2017-06-18 06:06] LABS: SERUM IRON 29 ug/dL (27-139); TOTAL IRON BINDING CAPACITY 403 ug/dL (250-450); UIBC 374 ug/dL (118-369)
[2017-06-18] MEDS: INSULIN SLIDING SCALE (NOVOLOG) 1 VIAL SQ SCH ×4 (06:40→22:04)
[2017-06-18] MEDS: INSULIN DETEMIR 100 UNITS/ML MDV SQ SCH (06:42)
--- NOTE | 2017-06-18 07:22 | PN ---
Physical Exam: 24H Events: yesterday - received 2U PRBCs, H&H stable, no signs of bleeding SUBJECTIVE: Patient seen and examined. Feels breathing has improved since transfusion. No c/o chest pain, fever, chills, n/v. OBJECTIVE: Vital Signs Period Temp Pulse Resp BP Sys/Wade Pulse Ox Last 24 Hr 97.9 F-98.8 F 78-87 18-20 139-179/64-72 95-97 GENERAL: aaox3, nad EYES: sclera anicteric, conjunctiva clear ENT: moist mucous membranes LUNGS: CTAB, no wheezes, rales, rhonchi HEART: rrr, normal S1/S2, 5/6 systolic murmur at RUSB ABDOMEN: obese, soft, ntnd LOWER EXTREMITIES: 2+ pulses, wwp, no edema CBC, BMP 06/18/17 05:10 06/18/17 05:10 Hepatic Panel Total Bilirubin 1.1 mg/dL (0.2-1.0) H D 06/18/17 05:10 AST 18 U/L (15-37) 06/18/17 05:10 ALT 15 U/L (12-78) 06/18/17 05:10 Alkaline Phosphatase 102 U/L (45-117) 06/18/17 05:10 Albumin 3.3 g/dl (3.4-5.0) L 06/18/17 05:10 IMAGING: CT abd/pelvis/LE w/o (06/18/17): no e/o retroperitoneal hematoma 1: No e/o retroperitoneal hematoma 2: cholelithiasis. no ct e/o acute cholecystitis 3: No e/o acute fracture or dislocation in b/l hips and femurs. s/p R knee arthroplasty. 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 4: Moderately severe tricompartmental osteoarthritic changes in the L knee. Moderate osteoarthritic changes in b/l hips. ECHO 06/18/17: LV size and functional normal, no regional wall abnormalities, Severe valvular , GHANSHYAM 0.5cm2, Ao mean pressure gradient = 43mmHg, Mild AR, TR , MR, Active Medications Atorvastatin Calcium (Lipitor -) 40 mg PO HS ENEDINA Last Admin: 06/17/17 22:52 Dose: 40 mg Ferrous Sulfate (Feosol -) 325 mg PO BIDWM ENEDINA Furosemide (Lasix -) 20 mg PO DAILY [facility] Last Admin: 06/18/17 14:57 Dose: 20 mg Insulin Aspart (Novolog Vial Sliding Scale -) 1 vial SQ ACHS [facility] PRN Reason: Protocol Last Admin: 06/18/17 12:50 Dose: Not Given Insulin Detemir (Levemir Vial) 5 units SQ BID@0700,2200 [facility] Lidocaine (Lidoderm Patch -) 1 patch TP DAILY PRN PRN Reason: PAIN IN AFFECTED AREAS Lorazepam (Ativan -) 0.5 mg PO PRN PRN PRN Reason: ANXIETY Magnesium Oxide (Mag-Ox -) 400 mg PO BID [facility] Last Admin: 06/18/17 10:32 Dose: 400 mg Metoprolol Succinate (Toprol Xl -) 25 mg PO DAILY [facility] Last Admin: 06/18/17 10:30 Dose: 25 mg Non-Formulary Medication (Cholecalciferol (Vitamin D3) [Vitamin D3]) 10,000 unit PO HS [facility] Pantoprazole Sodium (Protonix Packets For Oral Suspension -) 40 mg PO DAILY [facility] Last Admin: 06/18/17 10:31 Dose: 40 mg Ranitidine HCl (Zantac -) 150 mg PO DAILY [facility] Last Admin: 06/18/17 10:32 Dose: 150 mg Sertraline HCl (Zoloft -) 50 mg PO HS [facility] Tramadol HCl (Ultram -) 50 mg PO Q6H PRN PRN Reason: PAIN Vitamin E (Vitamin E -) 400 unit PO BID [facility] Last Admin: 06/18/17 10:32 Dose: 400 unit ASSESSMENT/PLAN: 72 yo F with PMHx of CHF, CAD s/p stenting, PAD, and IDDM presents with a two week history of progressive weakness will be admitted to telemetry for symptomatic anemia and acute of chronic CHF. CT of LE/abd/pelvis revealed no retroperitoneal hematoma. #Symptomatic anemia, s/p 2U PRCs, no further signs active bleeding -GI consulted, CT no e/o retroperitoneal hemotoma, planning for EGD/colonoscopy Thurs -start ferrous sulfate 325mg bid #acute CHF exacerbation, likely 2/2 to anemia -Cardiology consulted, cleared for GI procedures -continue home 20mg lasix daily, metoprolol 25mg daily -Fluid restricts, daily weights #CAD (s/p stenting), tropsx2 neg -Hold ASA/Plavix -Continue statin #IDDM, reports A1c was <6 -Continue home Levemir 5U BID -Hold home oral meds -BGM, ISS ACHS #HTN - continue home metoprolol 25mg daily #HLD - continue statin #Depression/Anxiety -Continue Zoloft HS, 25mg tonight, 75mg x4d, 100mg #FEN -Hold IVFs, lytes wnl, Diabetic/Na controlled diet #PPX -DVT - SCD's (AC c/i) -GI - cont home protonix DISPO: transfer to M/S, d/c after GI procedures FULL code d/w Catrachito Anderson MD PGY1 Visit type - Emergency Visit Emergency Visit: No - New Patient This patient is new to me today: Yes Date on this admission: 06/18/17 - Critical Care Critical Care patient: No
[2017-06-18 07:34] LABS: BASOPHIL 0.8 % (0-2.0); EOSINOPHIL 3.3 % (0-4.5); MCH 26.1 pg (25.7-33.7); MCHC 32.6 g/dl (32.0-36.0); MEAN CELL VOLUME 80.2 fl (80-96); MEAN PLT VOLUME 8.4 fl (7.5-11.1); NEUTROPHILS 53.8 % (42.8-82.8); PLATELET COUNT 224 K/MM3 (134-434); RDW 15.1 % (11.6-15.6); WHITE BLOOD COUNT 7.6 K/mm3 (4.0-10.0)
[2017-06-18 08:09] LABS: ALBUMIN 3.3 g/dl (3.4-5.0); ALK PHOS 102 U/L (45-117); ANION GAP 9 (8-16); BILIRUBIN,TOTAL 1.1 mg/dL (0.2-1.0); CO2 25 mmol/L (21-32); CREATININE 1.3 mg/dL (0.55-1.02); GLUCOSE,RANDOM 95 mg/dL (74-106); MAGNESIUM 2.1 mg/dL (1.8-2.4); PHOSPHOROUS 3.3 mg/dL (2.5-4.9); SGOT/AST 18 U/L (15-37); SGPT/ALT 15 U/L (12-78); TOT PROT 7.1 g/dl (6.4-8.2)
--- NOTE | 2017-06-18 08:40 | CONS ---
PHYSICAL MEDICINE REHABILITATION CONSULTATION DATE OF CONSULTATION: 06/18/2017 HISTORY OF PRESENT ILLNESS: Patient is a 72-year-old woman who is known from outpatient consultation with past medical history of lumbar stenosis, diabetes, and obesity, who was admitted with weakness. Patient again is known from outpatient physical therapy, and she has debilitating lumbar stenosis which gives her back pain which can radiate into the lower extremities. Currently, the pain is mainly in her lower back, and she is able to ambulate very short distances. MRI in the past included an MRI of the lumbar spine which showed [id number] stenosis at L4-5 and moderate canal stenosis at L5-S1. Patient states that she plans on seeing back surgeon at [facility], Dr. Rogers. She has tried medication including gabapentin, tramadol, baclofen, as well as physical therapy. Again, she was admitted with increasing weakness, found to have a hemoglobin around 8.5 on admission. She underwent blood transfusion, and her hemoglobin increased to 11.1; currently, today 10.5. Her WBCs are normal, 7.6, and platelet count normal, 224. INR on admission 1.06. Chemistry shows slight elevation, BUN 34, creatinine 1.5. BNP was over 8900, and she was also diagnosed with congestive heart failure. She is undergoing GI workup for etiology of blood loss. She had been on Plavix, and apparently, this may be held currently. Patient herself feels much improved. She is seen in her room. She is standing and ambulating. She has no complaints of dizziness, lightheadedness, shortness of breath, dyspnea on exertion. Her main complaint is her lower back. PAST MEDICAL AND SURGICAL HISTORY: COPD, congestive heart failure, coronary artery disease status post stenting, peripheral arterial disease, insulin-dependent diabetes, possible diabetic peripheral neuropathy, right knee surgery, x2, lumbar stenosis. SOCIAL HISTORY: A 87-mewy-vsht history but quit 25 years ago. Alcohol: A few drinks a week. Lives in a private house. There are stairs, but she does not negotiate stairs. She can ambulate with a straight cane, but again, it is very limited due to her back. REVIEW OF SYSTEMS: She has no dizziness, no lightheadedness, no headache, no blurry vision or double vision that is new, no nausea or vomiting, difficulty swallowing, difficulty chewing. No chest pain. No current shortness of breath at rest or ambulating to the bathroom. No current complaints of swelling. Apparently, she did have some swelling in her lower extremities upon admission. Her main complaint is back pain. No current radicular symptoms. No complaints of numbness or tingling in the upper or lower extremities. No neck pain. No fever or chills. No weight loss or weight gain. PHYSICAL EXAMINATION: General: Patient is an elderly woman, seen both sitting, standing, and ambulating. HEENT: She is normocephalic and atraumatic. Extraocular muscles appear intact. Neck: Supple. Extremities: She may have trace edema but no pitting edema or calf tenderness currently. Skin: Without any rash or breakdown. Neuromuscular: She is awake, alert, fully oriented x3. She has good insight into her medical conditions. Cranial nerves 2-12 appear grossly intact. She has good motor power throughout the upper extremities. Good cervical range of motion. Normal sensation to light touch, pinprick in the upper limbs. In the lower extremities, she has 5/5 strength, hip girdle, hip flexors, hip abductors, knee flexion and extension, dorsiflexion. She has normal sensation to light touch and pinprick in the lower extremities. She has limited lumbar extension but fairly well tolerated flexion. She ambulates with a straight cane and steady gait, slightly forward-flexed posture. OVERALL IMPRESSION: 1. Mild deficits in mobility and activities of daily living which at this point are mainly due to her chronic back condition. 2. History of [id number] canal stenosis at L4-5, moderate canal stenosis at L5-S1. 3. Anemia of uncertain etiology status post blood transfusion. Workup in progress. 4. Congestive heart failure. 5. Cardiac history as above. 6. Diabetes without any definite diabetic peripheral neuropathy. 7. Morbid obesity. 8. Coronary artery disease status post myocardial infarction. 9. Elevated BUN and creatinine, probable chronic kidney disease. PLAN/SUGGESTION: 1. Patient should continue to ambulate. She is steady. She does not require any skilled physical therapy at this point. 2. Out of bed to chair. Encourage. 3. GI workup for etiology of anemia. 4. Medical management. 5. Patient, if medically stable, will be evaluated by Dr. Rogers at [facility] after the new year as she has failed all conservative measures in regards to her back including epidural injections, medication, and physical therapy. Patient's disposition should be home when medically stable. Thank you very much for this consultation. AUSTIN BRIGGS M.D. [id number]
[2017-06-18] MEDS ORDERED: RANITIDINE HCL 150 MG TABLET (FP) PO SCH (10:00)
[2017-06-18] MEDS: METOPROLOL SUCCINATE 50 MG TAB.SR.24H (FP) PO SCH (10:30)
[2017-06-18] MEDS: PANTOPRAZOLE SOD 40 MG SUSPENSION PACKET PO SCH (10:31)
[2017-06-18] MEDS: VITAMIN E 400 INTERNATIONAL-UNITS CAPSULE (FP) PO SCH ×2 (10:32→22:07)
[2017-06-18] MEDS: MAGNESIUM OXIDE 400 MG TABLET (FP) PO SCH ×2 (10:32→22:03)
[2017-06-18] MEDS ORDERED: PT OWN MED DRAWER 7, Y5N ONE ×5 (10:55→22:06)
--- NOTE | 2017-06-18 11:14 | PN ---
Progress Note, Physician History of Present Illness: Chart reviewed. No events. Comfortable. - Current Medication List Current Medications: Active Medications Atorvastatin Calcium (Lipitor -) 40 mg PO HS [facility] Last Admin: 06/17/17 22:52 Dose: 40 mg Furosemide (Lasix -) 20 mg PO DAILY [facility] Insulin Aspart (Novolog Vial Sliding Scale -) 1 vial SQ ACHS [facility] PRN Reason: Protocol Last Admin: 06/18/17 06:40 Dose: Not Given Insulin Detemir (Levemir Vial) 10 units SQ BIDI [facility] Last Admin: 06/18/17 06:42 Dose: 5 unit Lidocaine (Lidoderm Patch -) 1 patch TP TID PRN PRN Reason: PAIN Lorazepam (Ativan -) 0.5 mg PO PRN PRN PRN Reason: ANXIETY Magnesium Oxide (Mag-Ox -) 400 mg PO BID [facility] Last Admin: 06/18/17 10:32 Dose: 400 mg Metoprolol Succinate (Toprol Xl -) 25 mg PO DAILY [facility] Last Admin: 06/18/17 10:30 Dose: 25 mg Non-Formulary Medication (Cholecalciferol (Vitamin D3) [Vitamin D3]) 10,000 unit PO [facility] Pantoprazole Sodium (Protonix Packets For Oral Suspension -) 40 mg PO DAILY [facility] Last Admin: 06/18/17 10:31 Dose: 40 mg Ranitidine HCl (Zantac -) 150 mg PO DAILY [facility] Last Admin: 06/18/17 10:32 Dose: 150 mg Sertraline HCl (Zoloft -) 25 mg PO [facility] Last Admin: 06/17/17 21:43 Dose: 25 mg Tramadol HCl (Ultram -) 50 mg PO Q4H PRN Vitamin E (Vitamin E -) 400 unit PO BID [facility] Last Admin: 06/18/17 10:32 Dose: 400 unit - Objective Vital Signs: Vital Signs Temperature 97.9 F 06/18/17 06:00 Pulse Rate 82 06/18/17 06:00 Respiratory Rate 20 06/18/17 06:00 Blood Pressure 160/72 06/18/17 06:00 O2 Sat by Pulse Oximetry (%) 96 06/17/17 21:00 Constitutional: Yes: Well Nourished, No Distress, Calm Eyes: Yes: Conjunctiva Clear Gastrointestinal: Yes: Normal Bowel Sounds, Soft. No: Melena, Rectal Bleeding, Tenderness, Vomiting Labs: CBC, BMP 06/18/17 05:10 06/18/17 05:10 INR, PTT INR 1.06 (0.82-1.09) 06/17/17 08:45 CBCD WBC 7.6 K/mm3 (4.0-10.0) 06/18/17 05:10 RBC 4.03 M/mm3 (3.60-5.2) 06/18/17 05:10 Hgb 10.5 GM/dL (10.7-15.3) L 06/18/17 05:10 Hct 32.3 % (32.4-45.2) L 06/18/17 05:10 MCV 80.2 fl (80-96) 06/18/17 05:10 MCHC 32.6 g/dl (32.0-36.0) 06/18/17 05:10 RDW 15.1 % (11.6-15.6) 06/18/17 05:10 Plt Count 224 K/MM3 (134-434) 06/18/17 05:10 MPV 8.4 fl (7.5-11.1) 06/18/17 05:10 CMP Sodium 140 mmol/L (136-145) 06/18/17 05:10 Potassium 4.3 mmol/L (3.5-5.1) 06/18/17 05:10 Chloride 106 mmol/L (98-107) 06/18/17 05:10 Carbon Dioxide 25 mmol/L (21-32) 06/18/17 05:10 Anion Gap 9 (8-16) 06/18/17 05:10 BUN 27 mg/dL (7-18) H D 06/18/17 05:10 Creatinine 1.3 mg/dL (0.55-1.02) H 06/18/17 05:10 Creat Clearance w eGFR 40.15 (>60) 06/18/17 05:10 Calcium 9.0 mg/dL (8.5-10.1) 06/18/17 05:10 Total Bilirubin 1.1 mg/dL (0.2-1.0) H D 06/18/17 05:10 AST 18 U/L (15-37) 06/18/17 05:10 ALT 15 U/L (12-78) 06/18/17 05:10 Alkaline Phosphatase 102 U/L (45-117) 06/18/17 05:10 Total Protein 7.1 g/dl (6.4-8.2) 06/18/17 05:10 Albumin 3.3 g/dl (3.4-5.0) L 06/18/17 05:10 Problem List - Problems (1) Congestive heart failure (CHF) Code(s): I50.9 - HEART FAILURE, UNSPECIFIED Qualifiers: Congestive heart failure type: diastolic Congestive heart failure chronicity: acute on chronic Qualified Code(s): I50.33 - Acute on chronic diastolic (congestive) heart failure (2) Symptomatic anemia Code(s): D64.9 - ANEMIA, UNSPECIFIED Assessment/Plan Cardiology clearance/evaluation prior to EGD/COlonsocopy and holding Plavix Dexilant 60 mp po qd Other immediate care as per cardiology and primary teams Discussed with the patient and her son
--- NOTE | 2017-06-18 11:27 | PN ---
Progress Note, Physician History of Present Illness: Patient is a 72F with history of COPD, CHF, CAD s/p stenting, mutliple arterial vascular issues, and IDDM here today complaining of 2 weeks of fatigue, lightheadedness, and dizziness for the past two weeks. She is also complaining of associated decreased activity level and upper abdominal pain. She denies chest pain, shortness of breath, nausea, vomiting and diaphoresis. She says that her PMD says she was anemic, which was the reason for her presentation for the hospital today. She denies melena, coffee ground emesis, blood in urine, and blood in stool. She reports never having a colonoscopy but did get test called Colon Guard, which was negative. PMH DM, ASHD moderate to severe (mid LAD), c. cath 11/2014, HTN, Hyperlipidemia, Morbid obesity, Anxiety, CVA (mild - no residuals), PAD 80 % Right ICA stenosis duplex and CTA/4V angio, Severe aortic stenosis with GHANSHYAM calculated 0.9 cm2, and a surgical history of RTKR. 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 - Current Medication List Current Medications: Active Medications Atorvastatin Calcium (Lipitor -) 40 mg PO HS [facility] Last Admin: 06/17/17 22:52 Dose: 40 mg Furosemide (Lasix -) 20 mg PO DAILY [facility] Insulin Aspart (Novolog Vial Sliding Scale -) 1 vial SQ ACHS [facility] PRN Reason: Protocol Last Admin: 06/18/17 06:40 Dose: Not Given Insulin Detemir (Levemir Vial) 10 units SQ BIDI [facility] Last Admin: 06/18/17 06:42 Dose: 5 unit Lidocaine (Lidoderm Patch -) 1 patch TP TID PRN PRN Reason: PAIN Lorazepam (Ativan -) 0.5 mg PO PRN PRN PRN Reason: ANXIETY Magnesium Oxide (Mag-Ox -) 400 mg PO BID [facility] Last Admin: 06/18/17 10:32 Dose: 400 mg Metoprolol Succinate (Toprol Xl -) 25 mg PO DAILY [facility] Last Admin: 06/18/17 10:30 Dose: 25 mg Non-Formulary Medication (Cholecalciferol (Vitamin D3) [Vitamin D3]) 10,000 unit PO HS [facility] Pantoprazole Sodium (Protonix Packets For Oral Suspension -) 40 mg PO DAILY [facility] Last Admin: 06/18/17 10:31 Dose: 40 mg Ranitidine HCl (Zantac -) 150 mg PO DAILY [facility] Last Admin: 06/18/17 10:32 Dose: 150 mg Sertraline HCl (Zoloft -) 25 mg PO HS [facility] Last Admin: 06/17/17 21:43 Dose: 25 mg Tramadol HCl (Ultram -) 50 mg PO Q4H PRN Vitamin E (Vitamin E -) 400 unit PO BID [facility] Last Admin: 06/18/17 10:32 Dose: 400 unit - Objective Vital Signs: Vital Signs Temperature 97.9 F 06/18/17 06:00 Pulse Rate 82 06/18/17 06:00 Respiratory Rate 20 06/18/17 06:00 Blood Pressure 160/72 06/18/17 06:00 O2 Sat by Pulse Oximetry (%) 96 06/17/17 21:00 Eyes: Yes: WNL, Conjunctiva Clear, EOM Intact HENT: Yes: WNL, Atraumatic, Normocephalic Neck: Yes: WNL, Supple, Trachea Midline Cardiovascular: Yes: WNL, Murmur, S1, S2 Respiratory: Yes: WNL, Regular, CTA Bilaterally Gastrointestinal: Yes: WNL, Normal Bowel Sounds Genitourinary: Yes: WNL Musculoskeletal: Yes: WNL Extremities: Yes: WNL Edema: No Integumentary: Yes: WNL Neurological: Yes: WNL, Alert, Oriented ...Motor Strength: WNL Psychiatric: Yes: WNL Labs: CBC, BMP 06/18/17 05:10 06/18/17 05:10 INR, PTT INR 1.06 (0.82-1.09) 06/17/17 08:45 Assessment/Plan Anemia Guiac negative s/p TABLE FILLER r lower ext stents February 2017 c/o some r thigh tightness DM, ASHD moderate to severe (mid LAD), c. cath 11/2014, HTN, Hyperlipidemia, Morbid obesity, Anxiety, CVA (mild - no residuals), PAD 80 % Right ICA stenosis duplex and CTA/4V angio, Severe aortic stenosis with GHANSHYAM calculated 0.9 cm2, Plan; CT abd /l ext to r/o retroperitoneal/thigh bleed if negative will proceed with endoscopy/colonoscopy of DAPT for now cont telemetry.
--- NOTE | 2017-06-18 14:02 | PN ---
Teaching Attending Note Name of Resident: Laura Anderson ATTENDING PHYSICIAN STATEMENT I saw and evaluated the patient. I reviewed the resident's note and discussed the case with the resident. I agree with the resident's findings and plan as documented. SUBJECTIVE:asymptomatic. improvement after blood transfusion. c/o RLE appears larger than on the L for past few weeks. pain on movement of the knee. had TKR that same leg. had colonoscopy 10 years ago which was negative per pt used colonguard last year and reports as negaitve. denies CP, SOB, fever, chills, N/V /C/D. denies NSAID or recent steroid therapy OBJECTIVE: Last Vital Signs Temp Pulse Resp BP Pulse Ox 97.9 F 82 20 160/72 96 06/18/17 06:00 06/18/17 06:00 06/18/17 06:00 06/18/17 06:00 06/17/17 21:00 General NAD CV S1 S2 RRR +5/6 holosystolic murmur Lungs CTA B/L no wheezing/rales/rhonchi Abdomen soft NT/ND extremities non pitting edema RLE. slightly larger than L. no joint effusion ASSESSMENT AND PLAN: 72yo F with PMH CHF, CAD s/p stent, DM and presented with generalized weakness and found to be anemia 1. Symptomatic anemia- s/p 2units PRBC. appropriate response. plan for CT of the RLE to evaluate if bleeding source. if negative will proceed with EGD/ Colonoscopy by GI. cont to hold asa/plavix. iron defciency anemia. will start ferrous sulfate. will need iron studies repeated in 3months. on protonix po 2. Odette- likley dehydration. now improved. monitor while hospitalized 3. CHF- no signs of volume overload. cont current management. 4. CAD s/p stent- troponins neg x2. hold asa/plavix. on statin 5. DM- hold oral agents. iss, bgm 6. 7. DVT ppx- SCD. hold pharmacologic anticoagulation
[2017-06-18] MEDS ORDERED: SERTRALINE HCL 50 MG TABLET (FP) PO SCH (14:05)
[2017-06-18] MEDS ORDERED: traMADol HCL 50 MG TABLET PO PRN ×2 (14:06→17:25)
[2017-06-18] MEDS: FUROSEMIDE 20 MG TABLET (FP) PO SCH (14:57)
[2017-06-18] MEDS ORDERED: MAG HYDROX/AL HYDROX/SIMETH 355 ML ORAL.SUSP PO ONE (15:04)
[2017-06-18] MEDS ORDERED: LIDOCAINE 5% TOPICAL PATCH TP PRN (15:07)
[2017-06-18] MEDS ORDERED: SERTRALINE HCL 25 MG TABLET (FP) PO SCH ×2 (16:48→22:00)
[2017-06-18] MEDS ORDERED: INSULIN (NOVOLOG) ASPART 100 UNITS/ML 10ML VIAL ONE (17:05)
[2017-06-18] MEDS: FERROUS SO4 325 MG TABLET (FP) PO SCH (17:14)
[2017-06-18] MEDS ORDERED: LORazepam 0.5 MG TABLET PO PRN (17:35)
[2017-06-18] MEDS ORDERED: INSULIN DETEMIR 100 UNITS/ML MDV SQ SCH (22:00)
[2017-06-18] MEDS: ATORVASTATIN CA 40 MG TABLET (FP) PO SCH (22:03)
[2017-06-18] MEDS: CHOLECALCIFEROL (VITAMIN D3) 1,000 UNIT TABLET (FP) PO SCH (22:03)
[2017-06-19] MEDS: INSULIN SLIDING SCALE (NOVOLOG) 1 VIAL SQ SCH ×4 (06:18→21:51)
[2017-06-19] MEDS: INSULIN DETEMIR 100 UNITS/ML MDV SQ SCH ×2 (06:44→16:39)
[2017-06-19] MEDS ORDERED: INSULIN (NOVOLOG) ASPART 100 UNITS/ML 10ML VIAL ONE ×2 (06:48→11:20)
[2017-06-19] MEDS ORDERED: LORATADINE 10 MG TABLET PO ONE (07:17)
[2017-06-19 07:36] LABS: MCH 25.9 pg (25.7-33.7); MCHC 32.4 g/dl (32.0-36.0); MEAN CELL VOLUME 79.9 fl (80-96); MEAN PLT VOLUME 8.2 fl (7.5-11.1); PLATELET COUNT 216 K/MM3 (134-434); RDW 15.5 % (11.6-15.6)
[2017-06-19 08:00] LABS: ANION GAP 9 (8-16); CALCIUM 8.6 mg/dL (8.5-10.1); CO2 26 mmol/L (21-32); GLUCOSE,RANDOM 89 mg/dL (74-106)
[2017-06-19 08:02] LABS: CREATININE 1.1 mg/dL (0.55-1.02)
--- NOTE | 2017-06-19 09:36 | PN ---
Progress Note, Physician History of Present Illness: Chart reviewed. No events. Comfortable. - Current Medication List Current Medications: Active Medications Atorvastatin Calcium (Lipitor -) 40 mg PO HS [facility] Last Admin: 06/18/17 22:03 Dose: 40 mg Cholecalciferol (Vitamin D3 -) 5,000 unit PO HS [facility] Last Admin: 06/18/17 22:03 Dose: 5,000 unit Cyanocobalamin (Vitamin B12 -) 2,000 mcg PO DAILY [facility] Ferrous Sulfate (Feosol -) 325 mg PO BIDWM [facility] Last Admin: 06/18/17 17:14 Dose: 325 mg Furosemide (Lasix -) 20 mg PO DAILY [facility] Last Admin: 06/18/17 14:57 Dose: 20 mg Insulin Aspart (Novolog Vial Sliding Scale -) 1 vial SQ ACHS [facility] PRN Reason: Protocol Last Admin: 06/19/17 06:18 Dose: Not Given Insulin Detemir (Levemir Vial) 5 units SQ BIDI [facility] Last Admin: 06/19/17 06:44 Dose: 5 units Lidocaine (Lidoderm Patch -) 1 patch TP DAILY PRN PRN Reason: PAIN IN AFFECTED AREAS Lorazepam (Ativan -) 0.5 mg PO Q6H PRN PRN Reason: ANXIETY Magnesium Oxide (Mag-Ox -) 400 mg PO BID [facility] Last Admin: 06/18/17 22:03 Dose: 400 mg Metoprolol Succinate (Toprol Xl -) 25 mg PO DAILY [facility] Last Admin: 06/18/17 10:30 Dose: 25 mg Pantoprazole Sodium (Protonix Packets For Oral Suspension -) 40 mg PO DAILY [facility] Last Admin: 06/18/17 10:31 Dose: 40 mg Sertraline HCl (Zoloft -) 25 mg PO [facility] Last Admin: 06/18/17 22:03 Dose: 25 mg Tramadol HCl (Ultram -) 50 mg PO Q6H PRN PRN Reason: PAIN Vitamin E (Vitamin E -) 400 unit PO BID [facility] Last Admin: 06/18/17 22:07 Dose: 400 unit - Objective Vital Signs: Vital Signs Temperature 98.6 F 06/19/17 05:53 Pulse Rate 82 06/19/17 05:53 Respiratory Rate 20 06/19/17 05:53 Blood Pressure 139/66 06/19/17 05:53 O2 Sat by Pulse Oximetry (%) 98 06/18/17 21:00 Constitutional: Yes: Well Nourished, No Distress, Calm Gastrointestinal: Yes: Normal Bowel Sounds, Soft. No: Melena, Rectal Bleeding, Tenderness, Vomiting Neurological: Yes: Alert, Oriented Labs: CBC, BMP 06/19/17 05:20 06/19/17 05:20 INR, PTT INR 1.06 (0.82-1.09) 06/17/17 08:45 CBCD WBC 6.0 K/mm3 (4.0-10.0) 06/19/17 05:20 RBC 3.96 M/mm3 (3.60-5.2) 06/19/17 05:20 Hgb 10.2 GM/dL (10.7-15.3) L 06/19/17 05:20 Hct 31.6 % (32.4-45.2) L 06/19/17 05:20 MCV 79.9 fl (80-96) L 06/19/17 05:20 MCHC 32.4 g/dl (32.0-36.0) 06/19/17 05:20 RDW 15.5 % (11.6-15.6) 06/19/17 05:20 Plt Count 216 K/MM3 (134-434) 06/19/17 05:20 MPV 8.2 fl (7.5-11.1) 06/19/17 05:20 CMP Sodium 141 mmol/L (136-145) 06/19/17 05:20 Potassium 4.4 mmol/L (3.5-5.1) 06/19/17 05:20 Chloride 106 mmol/L (98-107) 06/19/17 05:20 Carbon Dioxide 26 mmol/L (21-32) 06/19/17 05:20 Anion Gap 9 (8-16) 06/19/17 05:20 BUN 28 mg/dL (7-18) H 06/19/17 05:20 Creatinine 1.1 mg/dL (0.55-1.02) H 06/19/17 05:20 Creat Clearance w eGFR 40.15 (>60) 06/18/17 05:10 Calcium 8.6 mg/dL (8.5-10.1) 06/19/17 05:20 Total Bilirubin 1.1 mg/dL (0.2-1.0) H D 06/18/17 05:10 AST 18 U/L (15-37) 06/18/17 05:10 ALT 15 U/L (12-78) 06/18/17 05:10 Alkaline Phosphatase 102 U/L (45-117) 06/18/17 05:10 Total Protein 7.1 g/dl (6.4-8.2) 06/18/17 05:10 Albumin 3.3 g/dl (3.4-5.0) L 06/18/17 05:10 Problem List - Problems (1) Congestive heart failure (CHF) Code(s): I50.9 - HEART FAILURE, UNSPECIFIED Qualifiers: Congestive heart failure type: diastolic Congestive heart failure chronicity: acute on chronic Qualified Code(s): I50.33 - Acute on chronic diastolic (congestive) heart failure (2) Symptomatic anemia Code(s): D64.9 - ANEMIA, UNSPECIFIED Assessment/Plan Cardiology evaluation appreciated Plan EGD/colonoscpy tomorrow. Discussed with the patient. She is in agreement Dexilant 60 mp po qd Other immediate care as per cardiology and primary teams Discussed with the patient and her son
[2017-06-19] MEDS ORDERED: PT OWN MED DRAWER 7, Y5N ONE ×2 (10:01→11:19)
[2017-06-19] MEDS: FERROUS SO4 325 MG TABLET (FP) PO SCH ×2 (10:19→17:08)
[2017-06-19] MEDS: METOPROLOL SUCCINATE 50 MG TAB.SR.24H (FP) PO SCH (10:19)
[2017-06-19] MEDS: CYANOCOBALAMIN 1,000 MCG TABLET (FP) PO SCH (10:19)
[2017-06-19] MEDS: FUROSEMIDE 20 MG TABLET (FP) PO SCH (10:19)
[2017-06-19] MEDS: PANTOPRAZOLE SOD 40 MG SUSPENSION PACKET PO SCH (10:20)
[2017-06-19] MEDS: VITAMIN E 400 INTERNATIONAL-UNITS CAPSULE (FP) PO SCH ×2 (10:20→21:41)
[2017-06-19] MEDS: MAGNESIUM OXIDE 400 MG TABLET (FP) PO SCH ×2 (10:20→21:44)
--- NOTE | 2017-06-19 11:38 | PN ---
Teaching Attending Note Name of Resident: Laura Anderson ATTENDING PHYSICIAN STATEMENT I saw and evaluated the patient. I reviewed the resident's note and discussed the case with the resident. I agree with the resident's findings and plan as documented. SUBJECTIVE:asymptomatic. denies lethargy, weakness, CP, SOB, feer, chills, hematuria, BRBPR or melena OBJECTIVE: Last Vital Signs Temp Pulse Resp BP Pulse Ox 98.6 F 90 20 139/66 89 L 06/19/17 05:53 06/19/17 09:55 06/19/17 05:53 06/19/17 05:53 06/19/17 09:55 General NAD ASSESSMENT AND PLAN: 72yo F with PMH CHF, CAD s/p stent, DM and presented with generalized weakness and found to be anemia 1. Symptomatic anemia- s/p 2units PRBC. appropriate response. CT done to evaluate slight swelling in RLE for sourc of bleeding and was negative. plan for EGD/colonoscopy in the AM. on iron supplement, protonix. cont to monitor HGb. hold asa/plavix 2. Odette- likley dehydration. now improved. monitor while hospitalized 3. CHF- no signs of volume overload. cont current management. 4. CAD s/p stent- troponins neg x2. hold asa/plavix. on statin 5. DM- hold oral agents. iss, bgm 6. 7. DVT ppx- SCD. hold pharmacologic anticoagulation 8. d/c planning in the AM pending results of procedure. december d/c cardiac monitoring
--- NOTE | 2017-06-19 11:47 | PN ---
Physical Exam: SUBJECTIVE: Patient seen and examined. Feels anxious about procedure, no other complaints. Breathing better since transfusion. No difficulty ambulating to bathroom. Denies sob, chest pain, fever, chills, n/v. OBJECTIVE: Vital Signs Period Temp Pulse Resp BP Sys/Wade Pulse Ox Last 24 Hr 98.0 F-98.7 F 77-90 20-22 116-158/53-73 89-98 EYES: sclera anicteric, conjunctiva clear ENT: moist mucous membranes LUNGS: CTAB, no wheezes, rales, rhonchi HEART: rrr, normal S1/S2, 5/6 systolic murmur at RUSB ABDOMEN: obese, soft, ntnd LOWER EXTREMITIES: 2+ pulses, wwp, no edema CBC, BMP 06/19/17 05:20 06/19/17 05:20 Hepatic Panel Total Bilirubin 1.1 mg/dL (0.2-1.0) H D 06/18/17 05:10 AST 18 U/L (15-37) 06/18/17 05:10 ALT 15 U/L (12-78) 06/18/17 05:10 Alkaline Phosphatase 102 U/L (45-117) 06/18/17 05:10 Albumin 3.3 g/dl (3.4-5.0) L 06/18/17 05:10 IMAGING: CT abd/pelvis/LE w/o (06/18/17): no e/o retroperitoneal hematoma 1: No e/o retroperitoneal hematoma 2: cholelithiasis. no ct e/o acute cholecystitis 3: No e/o acute fracture or dislocation in b/l hips and femurs. s/p R knee arthroplasty. 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 4: Moderately severe tricompartmental osteoarthritic changes in the L knee. Moderate osteoarthritic changes in b/l hips. ECHO 06/18/17: LV size and functional normal, no regional wall abnormalities, Severe valvular , GHANSHYAM 0.5cm2, Ao mean pressure gradient = 43mmHg, Mild AR, TR , MR, Active Medications Atorvastatin Calcium (Lipitor -) 40 mg PO [facility] Last Admin: 06/18/17 22:03 Dose: 40 mg Cholecalciferol (Vitamin D3 -) 5,000 unit PO [facility] Last Admin: 06/18/17 22:03 Dose: 5,000 unit Cyanocobalamin (Vitamin B12 -) 2,000 mcg PO DAILY [facility] Last Admin: 06/19/17 10:19 Dose: 2,000 mcg Ferrous Sulfate (Feosol -) 325 mg PO BIDWM [facility] Last Admin: 06/19/17 10:19 Dose: 325 mg Furosemide (Lasix -) 20 mg PO DAILY [facility] Last Admin: 06/19/17 10:19 Dose: 20 mg Insulin Aspart (Novolog Vial Sliding Scale -) 1 vial SQ ACHS [facility] PRN Reason: Protocol Last Admin: 06/19/17 11:26 Dose: 2 units Insulin Detemir (Levemir Vial) 5 units SQ BIDI [facility] Last Admin: 06/19/17 06:44 Dose: 5 units Lidocaine (Lidoderm Patch -) 1 patch TP DAILY PRN PRN Reason: PAIN IN AFFECTED AREAS Lorazepam (Ativan -) 0.5 mg PO Q6H PRN PRN Reason: ANXIETY Magnesium Oxide (Mag-Ox -) 400 mg PO BID [facility] Last Admin: 06/19/17 10:20 Dose: 400 mg Metoprolol Succinate (Toprol Xl -) 25 mg PO DAILY [facility] Last Admin: 06/19/17 10:19 Dose: 25 mg Pantoprazole Sodium (Protonix Packets For Oral Suspension -) 40 mg PO DAILY [facility] Last Admin: 06/19/17 10:20 Dose: 40 mg Polyethylene Glycol/Electrolytes (Golytely Solution -) 4,000 ml PO ONCE ONE Stop: 06/19/17 18:01 Sertraline HCl (Zoloft -) 25 mg PO HS [facility] Last Admin: 06/18/17 22:03 Dose: 25 mg Tramadol HCl (Ultram -) 50 mg PO Q6H PRN PRN Reason: PAIN Vitamin E (Vitamin E -) 400 unit PO BID [facility] Last Admin: 06/19/17 10:20 Dose: 400 unit ASSESSMENT/PLAN: 72 yo F with PMHx of CHF, CAD s/p stenting, PAD, and IDDM presents with a two week history of progressive weakness will be admitted to telemetry for symptomatic anemia and acute of chronic CHF. CT of LE/abd/pelvis revealed no retroperitoneal hematoma. #Symptomatic anemia, s/p 2U PRCs, H&H stable, no further signs of active bleeding -GI consulted, planning for EGD/colonoscopy tomorrow, NPO at midnight, Clears diet today, bowel prep -start ferrous sulfate 325mg bid #acute CHF exacerbation, likely 2/2 to anemia -Cardiology consulted, cleared for GI procedures -continue home 20mg lasix daily, metoprolol 25mg daily -Fluid restricts, daily weights #CAD (s/p stenting), tropsx2 neg -Hold ASA/Plavix -Continue statin #IDDM, reports A1c was <6 -Continue home Levemir 5U BID -Hold home oral meds -BGM, ISS ACHS #HTN - continue home metoprolol 25mg daily #HLD - continue statin #Depression/Anxiety -Continue Zoloft HS, 25mg tonight, [id number], 75mg x4d, 100mg #FEN -Hold IVFs, lytes wnl, Clears (diabetic/cardiac) today, NPO at midnight #PPX -DVT - SCD's (AC c/i) -GI - cont home protonix DISPO: discharge home in next 24-48h following GI procedure FULL code d/w Catrachito Anderson MD PGY1 Visit type - Emergency Visit Emergency Visit: No - New Patient This patient is new to me today: No - Critical Care Critical Care patient: No
--- NOTE | 2017-06-19 11:54 | PN ---
Progress Note, Physician History of Present Illness: Patient is a 72F with history of COPD, CHF, CAD s/p stenting, mutliple arterial vascular issues, and IDDM here today complaining of 2 weeks of fatigue, lightheadedness, and dizziness for the past two weeks. She is also complaining of associated decreased activity level and upper abdominal pain. She denies chest pain, shortness of breath, nausea, vomiting and diaphoresis. She says that her PMD says she was anemic, which was the reason for her presentation for the hospital today. She denies melena, coffee ground emesis, blood in urine, and blood in stool. She reports never having a colonoscopy but did get test called Colon Guard, which was negative. PMH DM, ASHD moderate to severe (mid LAD), c. cath 11/2014, HTN, Hyperlipidemia, Morbid obesity, Anxiety, CVA (mild - no residuals), PAD 80 % Right ICA stenosis duplex and CTA/4V angio, Severe aortic stenosis with GHANSHYAM calculated 0.9 cm2, and a surgical history of RTKR. 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 - Current Medication List Current Medications: Active Medications Atorvastatin Calcium (Lipitor -) 40 mg PO HS [facility] Last Admin: 06/18/17 22:03 Dose: 40 mg Cholecalciferol (Vitamin D3 -) 5,000 unit PO HS [facility] Last Admin: 06/18/17 22:03 Dose: 5,000 unit Cyanocobalamin (Vitamin B12 -) 2,000 mcg PO DAILY [facility] Last Admin: 06/19/17 10:19 Dose: 2,000 mcg Ferrous Sulfate (Feosol -) 325 mg PO BIDWM [facility] Last Admin: 06/19/17 10:19 Dose: 325 mg Furosemide (Lasix -) 20 mg PO DAILY [facility] Last Admin: 06/19/17 10:19 Dose: 20 mg Insulin Aspart (Novolog Vial Sliding Scale -) 1 vial SQ ACHS [facility] PRN Reason: Protocol Last Admin: 06/19/17 11:26 Dose: 2 units Insulin Detemir (Levemir Vial) 5 units SQ BIDI [facility] Last Admin: 06/19/17 06:44 Dose: 5 units Lidocaine (Lidoderm Patch -) 1 patch TP DAILY PRN PRN Reason: PAIN IN AFFECTED AREAS Lorazepam (Ativan -) 0.5 mg PO Q6H PRN PRN Reason: ANXIETY Magnesium Oxide (Mag-Ox -) 400 mg PO BID [facility] Last Admin: 06/19/17 10:20 Dose: 400 mg Metoprolol Succinate (Toprol Xl -) 25 mg PO DAILY [facility] Last Admin: 06/19/17 10:19 Dose: 25 mg Pantoprazole Sodium (Protonix Packets For Oral Suspension -) 40 mg PO DAILY [facility] Last Admin: 06/19/17 10:20 Dose: 40 mg Polyethylene Glycol/Electrolytes (Golytely Solution -) 4,000 ml PO ONCE ONE Stop: 06/19/17 18:01 Sertraline HCl (Zoloft -) 25 mg PO HS [facility] Last Admin: 06/18/17 22:03 Dose: 25 mg Tramadol HCl (Ultram -) 50 mg PO Q6H PRN PRN Reason: PAIN Vitamin E (Vitamin E -) 400 unit PO BID [facility] Last Admin: 06/19/17 10:20 Dose: 400 unit - Objective Vital Signs: Vital Signs Temperature 98.4 F 06/19/17 09:00 Pulse Rate 90 06/19/17 09:55 Respiratory Rate 22 06/19/17 09:00 Blood Pressure 122/53 06/19/17 09:00 O2 Sat by Pulse Oximetry (%) 89 L 06/19/17 09:55 Eyes: Yes: WNL, Conjunctiva Clear, EOM Intact HENT: Yes: WNL, Atraumatic, Normocephalic Neck: Yes: WNL, Supple, Trachea Midline Cardiovascular: Yes: WNL, Regular Rate and Rhythm Respiratory: Yes: WNL, Regular, CTA Bilaterally Gastrointestinal: Yes: WNL, Normal Bowel Sounds Genitourinary: Yes: WNL Musculoskeletal: Yes: WNL Extremities: Yes: WNL Edema: No Integumentary: Yes: WNL Neurological: Yes: WNL, Alert, Oriented ...Motor Strength: WNL Psychiatric: Yes: WNL Labs: CBC, BMP 06/19/17 05:20 06/19/17 05:20 INR, PTT INR 1.06 (0.82-1.09) 06/17/17 08:45 Assessment/Plan Anemia Guiac negative s/p GROUNDSMAN r lower ext stents February 2017 c/o some r thigh tightness DM, ASHD moderate to severe (mid LAD), c. cath 11/2014, HTN, Hyperlipidemia, Morbid obesity, Anxiety, CVA (mild - no residuals), PAD 80 % Right ICA stenosis duplex and CTA/4V angio, Severe aortic stenosis with GHANSHYAM calculated 0.9 cm2, CT abd /l ext negative for retroperitoneal/thigh bleed Plan; GI w/u pending cont present rx
[2017-06-19] MEDS ORDERED: LIDOCAINE 5% TOPICAL PATCH TP PRN (14:06)
[2017-06-19] MEDS ORDERED: PEG 3350/NA SULF BICARB CL/KCL 4000 ML SOLN.RECON PO ONE (18:00)
[2017-06-19] MEDS: CHOLECALCIFEROL (VITAMIN D3) 1,000 UNIT TABLET (FP) PO SCH (21:42)
[2017-06-19] MEDS ORDERED: SERTRALINE HCL 25 MG TABLET (FP) PO SCH ×2 (22:00→22:05)
[2017-06-19] MEDS ORDERED: LIDOCAINE PATCH REMOVAL MC SCH (22:00)
[2017-06-19] MEDS ORDERED: ATORVASTATIN CA 40 MG TABLET (FP) PO SCH (22:00)
[2017-06-19] MEDS ORDERED: SERTRALINE HCL 50 MG TABLET (FP) PO SCH (22:45)
[2017-06-20] MEDS: INSULIN SLIDING SCALE (NOVOLOG) 1 VIAL SQ SCH ×3 (06:36→16:47)
[2017-06-20 07:12] LABS: MCH 25.7 pg (25.7-33.7); MCHC 32.1 g/dl (32.0-36.0); MEAN CELL VOLUME 80.2 fl (80-96); MEAN PLT VOLUME 7.8 fl (7.5-11.1); PLATELET COUNT 229 K/MM3 (134-434); RDW 15.7 % (11.6-15.6); WHITE BLOOD COUNT 6.5 K/mm3 (4.0-10.0)
[2017-06-20 07:41] LABS: INR 1.08 (0.82-1.09); PROTHROMBIN TIME (PATIENT) 12.2 SEC (9.98-11.88)
[2017-06-20 07:43] LABS: CALCIUM 8.8 mg/dL (8.5-10.1)
[2017-06-20 07:49] LABS: ALBUMIN 3.1 g/dl (3.4-5.0); ALK PHOS 101 U/L (45-117); ANION GAP 8 (8-16); BILIRUBIN,TOTAL 0.9 mg/dL (0.2-1.0); CO2 29 mmol/L (21-32); GLUCOSE,RANDOM 110 mg/dL (74-106); SGOT/AST 15 U/L (15-37); SGPT/ALT 18 U/L (12-78); TOT PROT 6.7 g/dl (6.4-8.2)
[2017-06-20] MEDS ORDERED: LIDOCAINE VISCOUS 2% ORAL/TOP 20 ML UNIT-DOSE CUP MM ONE (09:50)
[2017-06-20] MEDS ORDERED: MIDAZOLAM HCL 2 MG/2 ML SINGLE DOSE VIAL ONE (09:51)
[2017-06-20] MEDS ORDERED: METOPROLOL SUCCINATE 50 MG TAB.SR.24H (FP) PO SCH (10:00)
[2017-06-20] MEDS ORDERED: FUROSEMIDE 20 MG TABLET (FP) PO SCH (10:00)
[2017-06-20] MEDS ORDERED: PANTOPRAZOLE SOD 40 MG SUSPENSION PACKET PO SCH (10:00)
[2017-06-20] MEDS: FERROUS SO4 325 MG TABLET (FP) PO SCH (10:10)
--- NOTE | 2017-06-20 10:23 | PROC ---
Endoscopy Procedure Endoscopy procedure completed. Please see scanned procedure report. Normal colonoscopy gastritis was found in the antrum, biopsied, otherwise normal EGD Continue PPI resume diet Minimize, or avoid NSAIDs if possible Follow biopsies
[2017-06-20] MEDS ORDERED: PT OWN MED DRAWER 7, Y5N ONE (11:15)
[2017-06-20] MEDS: MAGNESIUM OXIDE 400 MG TABLET (FP) PO SCH (12:11)
[2017-06-20] MEDS: CYANOCOBALAMIN 1,000 MCG TABLET (FP) PO SCH (12:11)
[2017-06-20] MEDS: VITAMIN E 400 INTERNATIONAL-UNITS CAPSULE (FP) PO SCH (12:12)
--- NOTE | 2017-06-20 12:46 | PN ---
Progress Note, Physician History of Present Illness: Patient is a 72F with history of COPD, CHF, CAD s/p stenting, mutliple arterial vascular issues, and IDDM here today complaining of 2 weeks of fatigue, lightheadedness, and dizziness for the past two weeks. She is also complaining of associated decreased activity level and upper abdominal pain. She denies chest pain, shortness of breath, nausea, vomiting and diaphoresis. She says that her PMD says she was anemic, which was the reason for her presentation for the hospital today. She denies melena, coffee ground emesis, blood in urine, and blood in stool. She reports never having a colonoscopy but did get test called Colon Guard, which was negative. PMH DM, ASHD moderate to severe (mid LAD), c. cath 11/2014, HTN, Hyperlipidemia, Morbid obesity, Anxiety, CVA (mild - no residuals), PAD 80 % Right ICA stenosis duplex and CTA/4V angio, Severe aortic stenosis with GHANSHYAM calculated 0.9 cm2, and a surgical history of RTKR. Walks with cane due to spinal stenosis CLI with right SFA OBSTETRICS GYN 02/2017 - Current Medication List Current Medications: Active Medications Atorvastatin Calcium (Lipitor -) 40 mg PO HS [facility] Last Admin: 06/19/17 21:44 Dose: 40 mg Cholecalciferol (Vitamin D3 -) 5,000 unit PO HS [facility] Last Admin: 06/19/17 21:42 Dose: 5,000 unit Cyanocobalamin (Vitamin B12 -) 2,000 mcg PO DAILY [facility] Last Admin: 06/20/17 12:11 Dose: 2,000 mcg Ferrous Sulfate (Feosol -) 325 mg PO BIDWM [facility] Last Admin: 06/20/17 10:10 Dose: Not Given Furosemide (Lasix -) 20 mg PO DAILY [facility] Last Admin: 06/20/17 12:11 Dose: 20 mg Insulin Aspart (Novolog Vial Sliding Scale -) 1 vial SQ ACHS [facility] PRN Reason: Protocol Last Admin: 06/20/17 12:12 Dose: Not Given Insulin Detemir (Levemir Vial) 5 units SQ BIDI [facility] Last Admin: 06/19/17 16:39 Dose: Not Given Lidocaine (Lidoderm Patch -) 1 patch TP DAILY PRN PRN Reason: PAIN IN AFFECTED AREAS Lorazepam (Ativan -) 0.5 mg PO Q6H PRN PRN Reason: ANXIETY Magnesium Oxide (Mag-Ox -) 400 mg PO BID [facility] Last Admin: 06/20/17 12:11 Dose: 400 mg Metoprolol Succinate (Toprol Xl -) 25 mg PO DAILY [facility] Last Admin: 06/20/17 12:11 Dose: 25 mg Miscellaneous (Lidoderm Patch Removal) 1 each MC DAILY@2200 [facility] Last Admin: 06/19/17 21:49 Dose: Not Given Pantoprazole Sodium (Protonix Packets For Oral Suspension -) 40 mg PO DAILY [facility] Last Admin: 06/20/17 12:11 Dose: 40 mg Sertraline HCl (Zoloft -) 50 mg PO HS [facility] Last Admin: 06/19/17 22:46 Dose: 50 mg Tramadol HCl (Ultram -) 50 mg PO Q6H PRN PRN Reason: PAIN Vitamin E (Vitamin E -) 400 unit PO BID [facility] Last Admin: 06/20/17 12:12 Dose: 400 unit - Objective Vital Signs: Vital Signs Temperature 97.3 F L 06/20/17 11:35 Pulse Rate 91 H 06/20/17 11:35 Respiratory Rate 20 06/20/17 11:35 Blood Pressure 157/78 06/20/17 11:35 O2 Sat by Pulse Oximetry (%) 99 06/20/17 11:35 Eyes: Yes: WNL, Conjunctiva Clear, EOM Intact HENT: Yes: WNL, Atraumatic, Normocephalic Neck: Yes: WNL, Supple, Trachea Midline Cardiovascular: Yes: WNL, Regular Rate and Rhythm Respiratory: Yes: WNL, Regular, CTA Bilaterally Gastrointestinal: Yes: WNL, Normal Bowel Sounds Genitourinary: Yes: WNL Musculoskeletal: Yes: WNL Extremities: Yes: WNL Edema: No Integumentary: Yes: WNL Neurological: Yes: WNL, Alert, Oriented ...Motor Strength: WNL Psychiatric: Yes: WNL Labs: CBC, BMP 06/20/17 06:00 06/20/17 06:00 INR, PTT INR 1.08 (0.82-1.09) 06/20/17 06:00 Assessment/Plan Anemia Guiac negative s/p OBSTETRICS GYN r lower ext stents February 2017 c/o some r thigh tightness DM, ASHD moderate to severe (mid LAD), c. cath 11/2014, HTN, Hyperlipidemia, Morbid obesity, Anxiety, CVA (mild - no residuals), PAD 80 % Right ICA stenosis duplex and CTA/4V angio, Severe aortic stenosis with GHANSHYAM calculated 0.9 cm2, CT abd /l ext negative for retroperitoneal/thigh bleed Gastritis negative colonoscopy Plan; as per GI will avoid NSAIDS ASA Will restart Plavix cont present rx
--- NOTE | 2017-06-20 13:54 | PN ---
Teaching Attending Note Name of Resident: Laura Anderson ATTENDING PHYSICIAN STATEMENT I saw and evaluated the patient. I reviewed the resident's note and discussed the case with the resident. I agree with the resident's findings and plan as documented. SUBJECTIVE:asymptomatic. denies lethargy, weakness, CP, SOB, feer, chills, hematuria, BRBPR or melena OBJECTIVE: Last Vital Signs Temp Pulse Resp BP Pulse Ox 97.3 F L 91 H 20 157/78 99 06/20/17 11:35 06/20/17 11:35 06/20/17 11:35 06/20/17 11:35 06/20/17 11:35 General NAD ASSESSMENT AND PLAN: 72yo F with PMH CHF, CAD s/p stent, DM and presented with generalized weakness and found to be anemia 1. Symptomatic anemia- s/p 2units PRBC. appropriate response. NPO for EGD this AM. will follow up report. GI and cardio on board. AM. on iron supplement, protonix. cont to monitor HGb. hold asa/plavix 2. Odette- likley dehydration. now improved. monitor while hospitalized 3. CHF- no signs of volume overload. cont current management. 4. CAD s/p stent- troponins neg x2. hold asa/plavix. on statin 5. DM- hold oral agents. iss, bgm 6. 7. DVT ppx- SCD. hold pharmacologic anticoagulation 8. d/c home pending results of EGD
--- NOTE | 2017-06-20 14:56 | DS ---
Physical Exam: SUBJECTIVE: Patient seen and examined. Offers no complaints. Bowel prep overnight with no blood or dark stools noted. OBJECTIVE: Vital Signs Period Temp Pulse Resp BP Sys/Wade Pulse Ox Last 24 Hr 97.3 F-98.5 F 70-91 14-22 126-165/50-78 97-100 PHYSICAL EXAM EYES: sclera anicteric, conjunctiva clear ENT: moist mucous membranes LUNGS: CTAB, no wheezes, rales, rhonchi HEART: rrr, normal S1/S2, 5/6 systolic murmur at RUSB ABDOMEN: obese, soft, ntnd, +BS LOWER EXTREMITIES: 2+ pulses, wwp, no edema CBC, BMP 06/20/17 06:00 06/20/17 06:00 Hepatic Panel Total Bilirubin 0.9 mg/dL (0.2-1.0) 06/20/17 06:00 AST 15 U/L (15-37) 06/20/17 06:00 ALT 18 U/L (12-78) 06/20/17 06:00 Alkaline Phosphatase 101 U/L (45-117) 06/20/17 06:00 Albumin 3.1 g/dl (3.4-5.0) L 06/20/17 06:00 INR, PTT INR 1.08 (0.82-1.09) 06/20/17 06:00 IMAGING: CT abd/pelvis/LE w/o (06/18/17): no e/o retroperitoneal hematoma 1: No e/o retroperitoneal hematoma 2: cholelithiasis. no ct e/o acute cholecystitis 3: No e/o acute fracture or dislocation in b/l hips and femurs. s/p R knee arthroplasty. 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 4: Moderately severe tricompartmental osteoarthritic changes in the L knee. Moderate osteoarthritic changes in b/l hips. ECHO 06/18/17: LV size and functional normal, no regional wall abnormalities, Severe valvular , GHANSHYAM 0.5cm2, Ao mean pressure gradient = 43mmHg, Mild AR, TR , MR, Active Medications: Atorvastatin Calcium (Lipitor -) 40 mg PO HS [facility] Last Admin: 06/19/17 21:44 Dose: 40 mg Cholecalciferol (Vitamin D3 -) 5,000 unit PO HS [facility] Last Admin: 06/19/17 21:42 Dose: 5,000 unit Clopidogrel Bisulfate (Plavix -) 75 mg PO DAILY [facility] Cyanocobalamin (Vitamin B12 -) 2,000 mcg PO DAILY [facility] Last Admin: 06/20/17 12:11 Dose: 2,000 mcg Ferrous Sulfate (Feosol -) 325 mg PO BIDWM [facility] Last Admin: 06/20/17 10:10 Dose: Not Given Furosemide (Lasix -) 20 mg PO DAILY [facility] Last Admin: 06/20/17 12:11 Dose: 20 mg Insulin Aspart (Novolog Vial Sliding Scale -) 1 vial SQ ACHS [facility] PRN Reason: Protocol Last Admin: 06/20/17 12:12 Dose: Not Given Insulin Detemir (Levemir Vial) 5 units SQ BIDI [facility] Last Admin: 06/19/17 16:39 Dose: Not Given Lidocaine (Lidoderm Patch -) 1 patch TP DAILY PRN PRN Reason: PAIN IN AFFECTED AREAS Lorazepam (Ativan -) 0.5 mg PO Q6H PRN PRN Reason: ANXIETY Magnesium Oxide (Mag-Ox -) 400 mg PO BID [facility] Last Admin: 06/20/17 12:11 Dose: 400 mg Metoprolol Succinate (Toprol Xl -) 25 mg PO DAILY [facility] Last Admin: 06/20/17 12:11 Dose: 25 mg Miscellaneous (Lidoderm Patch Removal) 1 each MC DAILY@2200 [facility] Last Admin: 06/19/17 21:49 Dose: Not Given Pantoprazole Sodium (Protonix Packets For Oral Suspension -) 40 mg PO DAILY [facility] Last Admin: 06/20/17 12:11 Dose: 40 mg Sertraline HCl (Zoloft -) 50 mg PO HS [facility] Last Admin: 06/19/17 22:46 Dose: 50 mg Tramadol HCl (Ultram -) 50 mg PO Q6H PRN PRN Reason: PAIN Vitamin E (Vitamin E -) 400 unit PO BID [facility] Last Admin: 06/20/17 12:12 Dose: 400 unit HOSPITAL COURSE: Date of Admission:06/17/17 Date of Discharge: 06/20/17 Pre-admission Course: 72yo woman with PMHx of CHF, CAD s/p stenting, severe Aortic stenosis (GHANSHYAM 0.9cm2), IDDM presents with a two week history of progressive weakness. She states that for the past few weeks she just has not been feeling herself. She is complaining of lightheadness, fatigue, and decreased exercise tolerance. She also has some associated LUQ vague abdominal pain worse. She states that she has been eating a low sodium diet, no increase in fluid intake, no orthopnea, but does have some increase swelling of her legs, 7lbs weight gain and abdominal growth. She is on ASA and plavix given her CAD history. Reports last colonoscopy was 11 yrs ago, and had negative cologuard in 2016. Denies melenic stools, PRBPR. No chest pain, chest pressure or palpitations. ER course was notable for: (1)CBC shows Hgb 8.5 (2)EKG shows NSR with rate of [address] elevation or depression. (3)CXR shows vascular congestion. Subsequent Hospital Course: Briefly, patient transfused with 2Ux PRBCs with appropriate response in H&H ( Hgb 8.5 -> 11.1). Her breathing improved following the transfusion, and her Hgb has been stable with further signs of bleeding. Pt had RLE stents placed in February 2017, and c/o R upper "thigh tightness", however CT LE/Abd/pelvis showed no e/o retroperitoneal bleed or hematoma. She was seen by Cardiology who cleared her for GI procedures. ECHO was performed on 06/18, results above. On she underwent EGD/Colonoscopy which found gastritis in antrum and normal colonoscopy. *Please note ambulatory discharge medications should reflect that Aspirin 81 daily has been discontinued. Consults: GI - Dr. Mccann Cardiology - Dr. Godoy Minutes to complete discharge: 45 Discharge Summary Reason For Visit: CHF Current Active Problems Congestive heart failure (CHF) (Acute) DVT prophylaxis (Acute) Depression (Acute) HLD (hyperlipidemia) (Acute) Symptomatic anemia (Acute) Condition: Stable - Instructions Diet, Activity, Other Instructions: Recommendations: -You were admitted to the hospital for symptomatic anemia and received a blood transfusion (2 Units of blood). You also had a procedure to look at your stomach , which found gastritis. Your colonoscopy was normal. -You may resume your regular diet and daily activities. MEDICATIONS: -Resume you regular home medications with the follow changes: -Stop taking ASA (but continue Plavix) -Avoid or minimize NSAIDs if possible (such as Motrin, Advil, Ibuprofen) Follow-ups: -Please see GI within 1-2 weeks to get the results of your biopsies, and discuss the benefit of doing a capsule endoscopy study. -Please see your Automotive Sales Professional within 1-2 weeks. -Please see your primary care physician within 1-2 weeks. Please return to the ED if your symptoms worsen, you have signs of bleeding, such as dark black stools or blood in the stool. Referrals: Julio C Barbosa MD [Staff Physician] - Michael Mccann MD [Staff Physician] - Sarmad Martell MD [Staff Physician] - Disposition: HOME - Home Medications Comprehensive Discharge Medication List: Ambulatory Orders Metformin HCl [Glucophage -] 500 mg PO BID 04/05/12 Metoprolol Succinate [Toprol XL -] 25 mg PO DAILY 04/05/12 Pantoprazole Suspension [Protonix Packets For Oral Suspension -] 40 mg PO DAILY 07/13/12 Vitamin E 400 unit PO BID 07/13/12 Lorazepam 0.5 mg PO PRN PRN MDD 2.0mg 04/28/13 Lidocaine 5% Patch [Lidoderm -] 1 patch TP TID PRN 06/03/13 Cholecalciferol (Vitamin D3) [Vitamin D3] 5,000 unit PO HS 11/12/14 Aspirin Coated [Ecotrin -] 81 mg PO DAILY 07/22/15 Atorvastatin Ca [Lipitor] 80 mg PO HS 07/22/15 Clopidogrel Bisulfate [Plavix -] 75 mg PO Q48H 07/22/15 Ciclopirox Olamine [Ciclodan] 90 gm TP BID 02/04/17 Magnesium Oxide [Magnesium] 400 mg PO BID 02/04/17 Clopidogrel Bisulfate [Plavix -] 75 mg PO Q2D@1000 tablet 02/06/17 Furosemide [Lasix -] 20 mg PO DAILY tablet 02/06/17 Insulin Glargine,Hum.rec.anlog [Lantus (nf)] 5 units SQ BID 06/17/17 Cyanocobalamin [Vitamin B12 -] 2,000 mcg PO DAILY 06/18/17 Sertraline HCl [Zoloft] 50 mg PO DAILY 06/18/17 Tramadol HCl 50 mg PO Q6H 06/18/17 This patient is new to me today: No Emergency Visit: No Critical Care patient: No - Discharge Referral Referred to [facility] Med P.C.: No
[2017-06-20 15:09] VITALS: BP 118/59; PULSE 84; TEMP 98
[2017-06-21] MEDS ORDERED: CLOPIDOGREL BISULFATE 75 MG TABLET (FP) PO SCH (10:00)
--- NOTE | 2017-06-21 19:13 | PATH ---
Surgical Pathology Report Patient Name: RICCO MARTÍNEZ [facility]. Rec. #: [id number] /Age/Gender: 1945 (Age: 72) / F Account: [id number] Location: [facility] MED/SURG Taken: 06/20/2017 Received: 06/20/2017 Reported: 06/21/2017 Physicians: Rosi Bustillos M.D. Specimen(s) Received BX ANTRUM Clinical History Acute blood loss, anemia Anemia, gastritis, normal colon Final Diagnosis STOMACH, ANTRUM, BIOPSY: GASTRIC ANTRAL MUCOSA WITH MILD CHRONIC GASTRITIS. IMMUNOHISTOCHEMICAL STAIN FOR H. PYLORI IS NEGATIVE. Electronically Signed Julieta Shelton M.D. Gross Description Received in formalin, labeled "biopsy antrum" are 2 christensen, irregular portions of soft tissue measuring 0.3 and 0.4 cm. in greatest dimension. The specimens are submitted in toto in one cassette. 06/20/201706/20/2017
== END 2017-06-20 17:18 | disposition home or self-care (01) | DRG 811 ==
LOC: JER 06:14 → JERBED 12:19 → J4W 17:45 → J7W 06-19 13:04
PROVIDERS: ADMIT Internal Medicine; ATTEND Internal Medicine
PROC: 30233N1 Transfusion of Nonautologous Red Blood Cells into Peripheral Vein, Percutaneous Approach (ICD-10-PCS; principal; 2017-06-17)
PROC: 0DD68ZX Extraction of Stomach, Via Natural or Artificial Opening Endoscopic, Diagnostic (ICD-10-PCS; 2017-06-20)
PROC: 0DJD8ZZ Inspection of Lower Intestinal Tract, Via Natural or Artificial Opening Endoscopic (ICD-10-PCS; 2017-06-20)
DX: D50.8 Other iron deficiency anemias (principal); I50.33 Acute on chronic diastolic (congestive) heart failure; N17.9 Acute kidney failure, unspecified; I25.10 Atherosclerotic heart disease of native coronary artery without angina pectoris; J44.9 Chronic obstructive pulmonary disease, unspecified; E11.9 Type 2 diabetes mellitus without complications; E78.00 Pure hypercholesterolemia, unspecified; E66.8 Other obesity; Z68.36 Body mass index [BMI] 36.0-36.9, adult; F41.8 Other specified anxiety disorders; I65.21 Occlusion and stenosis of right carotid artery; K59.09 Other constipation; M54.5 Low back pain; E86.0 Dehydration; I11.0 Hypertensive heart disease with heart failure; K29.60 Other gastritis without bleeding; Z79.4 Long term (current) use of insulin; Z86.73 Personal history of transient ischemic attack (TIA), and cerebral infarction without residual deficits; Z95.5 Presence of coronary angioplasty implant and graft; Z87.891 Personal history of nicotine dependence
CPT/HCPCS: 36415; 36430; 71010-TC; 73700-TC-RT; 74176-TC; 80048; 80053; 82272; 82550; 82728; 83010; 83540; 83550; 83615; 83735; 83880; 84100; 84466; 84484; 85025; 85027; 85044; 85610; 86850; 86900; 86901; 86922; 88305-TC; 93005; 93010; 93306-TC; 97116-GP; 97161-GP; 99282-25; P9038; P9058

== ENCOUNTER 2017-07-25 07:29 | Emergency (ER) | payer OTHER, BC ==
[2017-07-25 07:40] VITALS: BP 149/71; PULSE 71; TEMP 97.4; BMI 33.7
--- NOTE | 2017-07-25 08:22 | PDOC ---
Attending Attestation - Resident Resident Name: Mane Rodriguez - HPI HPI: 07/25/17 10:11 Pt presents to the ED complaining of several episodes of dark stool yesterday. Recent history of severe anemia requiring transfusion with negative colonoscopy. Denies lightheadness or abdominal pain. - Physicial Exam PE: 07/25/17 10:28 Agree with resident exam. Patient appears comfortable and abdomen is non tender. - Medical Decision Making 07/25/17 10:29 Pt presents to the ED complaining of black stools. Patient is taking iron supplements and the black stool is likely secondary to iron. Labs show no evidence of anemia. Stool is guiac negative. Will discharge home with follow up with PMD.
--- NOTE | 2017-07-25 08:34 | PDOC ---
History of Present Illness - General Chief Complaint: Rectal Bleed Stated Complaint: BLACK STOOL Time Seen by Provider: 07/25/17 08:14 - History of Present Illness Initial Comments: 07/25/17 10:09 The patient is a 72 year old female with a history of CHF, CAD, PVD, HTN, DM, Anemia who presents for evaluation of black stools. The patient reports having black stools earlier today prompting her presentation to the ED for evaluation. She states that she was recently admitted to the hospital 1 month ago for a blood transfusion due to iron deficiency anemia at that time. She under when endoscopy and colonoscopy which she reports were both negative. She states that she began taking iron pills 1 week prior to her presentation today. She denies any fevers, chills, fatigue, weakness, chest pain, SOB, nausea, vomiting , abdominal pain, or changes with urination. She states that she otherwise feels normal. Past History - Past Medical History Allergies/Adverse Reactions: Allergies Allergy/AdvReac Type Severity Reaction Status Date / Time No Known Allergies Allergy Verified 07/25/17 07:35 Home Medications: Ambulatory Orders Metformin HCl [Glucophage -] 500 mg PO BID 04/05/12 Metoprolol Succinate [Toprol XL -] 25 mg PO DAILY 04/05/12 Pantoprazole Suspension [Protonix Packets For Oral Suspension -] 40 mg PO DAILY 07/13/12 Vitamin E 400 unit PO BID 07/13/12 Lorazepam 0.5 mg PO PRN PRN MDD 2.0mg 04/28/13 Lidocaine 5% Patch [Lidoderm -] 1 patch TP TID PRN 06/03/13 Cholecalciferol (Vitamin D3) [Vitamin D3] 5,000 unit PO HS 11/12/14 Atorvastatin Ca [Lipitor] 80 mg PO HS 07/22/15 Clopidogrel Bisulfate [Plavix -] 75 mg PO Q48H 07/22/15 Ciclopirox Olamine [Ciclodan] 90 gm TP BID 02/04/17 Magnesium Oxide [Magnesium] 400 mg PO BID 02/04/17 Furosemide [Lasix -] 20 mg PO DAILY tablet 02/06/17 Insulin Glargine,Hum.rec.anlog [Lantus (10mL VIAL) -] 5 units SQ BID 06/17/17 Cyanocobalamin [Vitamin B12 -] 2,000 mcg PO DAILY 06/18/17 Sertraline HCl [Zoloft] 50 mg PO DAILY 06/18/17 Tramadol HCl 50 mg PO Q6H 06/18/17 Cardiac Disorders: Yes (Aortic stenosis (Plavix)) CVA: Yes (10 years ago) COPD: Yes CHF: Yes Diabetes: Yes (IDDM) HTN: Yes Hypercholesterolemia: Yes - Surgical History Cardiac Surgery: Yes (cath) Orthopedic Surgery: Yes (R. Knee & Femur) - Immunization History Td Vaccination: Yes Immunization Up to Date: No - Suicide/Smoking/Psychosocial Hx Smoking Status: No Smoking History: Former smoker Years of Tobacco Use: 20 Have you smoked in the past 12 months: No Number of Cigarettes Smoked Daily: 0 If you are a former smoker, when did you quit?: 25yrs Cigars Per Day: 0 Information on smoking cessation initiated: No Hx Alcohol Use: No Drug/Substance Use Hx: No Substance Use Type: None Hx Substance Use Treatment: No Review of Systems - Review of Systems Comments:: 07/25/17 10:12 Constitutional: No fevers, chills, fatigue, malaise HEENT: No Rhinorrhea, nasal congestion, visual changes Cardiovascular: No chest pain, syncope, palpitations, lightheadedness Respiratory: No Cough, SOB, Hemoptysis, Gastrointestinal: Black Stools. No Abdominal pain, Nausea, Vomiting, Constipation, Diarrhea, Genitourinary: No Dysuria, Frequency, Urgency, Hesitancy, Hematuria, Flank pain Musculoskeletal: No Myalgia, arthralgia Skin: No rashes, bruising, pallor Neurologic: No Headache, Dizziness, Numbness, Weakness, or Tingling Psychiatric: No Hallucinations. No SI or HI *Physical Exam - Vital Signs Last Vital Signs Temp Pulse Resp BP Pulse Ox 97.4 F L 71 17 149/71 97 07/25/17 07:35 07/25/17 07:35 07/25/17 07:35 07/25/17 07:35 07/25/17 07:35 - Physical Exam Comments: 07/25/17 10:12 General Appearance: Nourished. No Apparent Distress HEENT: EOMI, DARRIUS. No Pharyngeal Erythema, Tonsillar Exudate, Tonsillar Erythema Neck: No Cervical Lymphadenopathy Respiratory/Chest: Lungs Clear, Normal Breath Sounds. No Crackles, Rales, Rhonchi, Wheezing Cardiovascular: Regular Rhythm, Regular Rate. 3/6 systolic murmur noted on exam. No Gallops, Rubs Gastrointestinal/Abdominal: Normal Bowel Sounds, Soft. No Guarding, Rebound, Tenderness Musculoskeletal: No CVA Tenderness Extremity: Normal Capillary Refill Integumentary: Normal Color, Dry, Warm. No pallor noted. Neurologic: Fully Oriented, Alert, Normal Mood/Affect, Normal Response, ED Treatment Course - LABORATORY CBC & Chemistry Diagram: 07/25/17 09:30 07/25/17 09:30 Medical Decision Making - Medical Decision Making 07/25/17 10:13 The patient is a 72 year old female with a history of CHF, CAD, PVD, HTN, DM, Anemia who presents for evaluation of black stools. Given the patient's recent use of Iron supplements, it is likely her dark stools are due to the medication especially given her lack of symptoms. However, given her history of anemia, we will obtain a cbc, cmp, and stool occult blood to evaluate for other etiologies. We will continue to monitor and reassess. 07/25/17 10:30 CBC, CMP are unremarkable. Stool occult blood is negative. The patient's dark stools are likely due to her recent start of iron supplements. We are comfortable discharging the patient home at this time with primary care provider follow up. We discussed the results and the plan with the patient who voiced understanding and is agreeable with the plan. *DC/Admit/Observation/Transfer Diagnosis at time of Disposition: Dark stools - Discharge Dispostion Disposition: HOME Condition at time of disposition: Good Admit: No - Referrals Referrals: Julio C Barbosa MD [Primary Care Provider] - - Patient Instructions Printed Discharge Instructions: DI for Rectal Bleeding Additional Instructions: Please return to the ER if you experience concerning or worsening symptoms including weakness, chest pain, or worsening fatigue. You were seen in the ER for dark stools. Your lab results were normal here in the ER. Your symptoms are likely due to the iron supplements you are taking. Please call to schedule a follow up appointment with your primary care provider to discuss your ER visit. - Post Discharge Activity
[2017-07-25 09:48] LABS: BASO % 0.5 % (0-2.0); EOS % 3.9 % (0-4.5); MCH 26.3 pg (25.7-33.7); MCHC 31.9 g/dl (32.0-36.0); MEAN CELL VOLUME 82.3 fl (80-96); NEUT % 67.6 % (42.8-82.8); PLATELET COUNT 237 K/MM3 (134-434); WHITE BLOOD COUNT 8.5 K/mm3 (4.0-10.0)
[2017-07-25 10:11] LABS: ALBUMIN 3.8 g/dl (3.4-5.0); ALK PHOS 125 U/L (45-117); ANION GAP 7 (8-16); BILIRUBIN,TOTAL 0.7 mg/dL (0.2-1.0); CO2 27 mmol/L (21-32); CREATININE 1.3 mg/dL (0.55-1.02); GLUCOSE,RANDOM 105 mg/dL (74-106); SGOT/AST 22 U/L (15-37); SGPT/ALT 21 U/L (12-78); TOT PROT 7.9 g/dl (6.4-8.2)
== END 2017-07-25 11:12 | disposition home or self-care (01) ==
LOC: JER 07:29
DX: R19.5 Other fecal abnormalities (principal); I25.10 Atherosclerotic heart disease of native coronary artery without angina pectoris; Z98.61 Coronary angioplasty status; I10 Essential (primary) hypertension; E78.00 Pure hypercholesterolemia, unspecified; E11.9 Type 2 diabetes mellitus without complications; Z79.84 Long term (current) use of oral hypoglycemic drugs; I73.9 Peripheral vascular disease, unspecified; I35.0 Nonrheumatic aortic (valve) stenosis; Z79.01 Long term (current) use of anticoagulants; Z86.73 Personal history of transient ischemic attack (TIA), and cerebral infarction without residual deficits
CPT/HCPCS: 36415; 80053; 82272; 85025; 99281-25

== ENCOUNTER 2017-07-30 13:50 | Emergency (ER) | payer OTHER, BC ==
[2017-07-30 14:30] VITALS: BMI 33.5
[2017-07-30] MEDS ORDERED: ACETAMINOPHEN 325 MG TABLET (FP) PO ONE (14:46)
--- NOTE | 2017-07-30 14:48 | PDOC ---
Attending Attestation - Resident Resident Name: Clive Whatley - ED Attending Attestation I have performed the following: I have examined & evaluated the patient, The case was reviewed & discussed with the resident, I agree w/resident's findings & plan, Exceptions are as noted - HPI HPI: 07/30/17 14:48 72y F hx of chf, cad, pvd, htn, dm, anemia, presents with L flank pain. Pt states she was feeling fine, until yesterday when she had intermitnt mild L flank pain, otday the pain worsened significantly 20/10, radiating down to the groin, +vomiting/nauesa, no associated numbness/tingling/weakness. pts exam noted for mild llq tenderness no va tenderness cardio/pulm exam unremarkble pt appears to be uncomfortable ddx likely vahe kerr will terat with pain management fluids CT abdomen 07/30/17 17:12 07/30/17 17:37 ct shows no nephrlithiasis no hydro +cholelithiasis w/o cholecystitis will reasses pt after further pain mangement Suspect MSK pain will terat supportively will dc with pmd f/u return precautions were discussed I discussed the physical exam findings, ancillary test results and final diagnoses with the patient. I answered all of the patient's questions. The patient was satisfied with the care received and felt comfortable with the discharge plan and treatment plan. The patient will call their primary care physician within 24 hours to arrange follow-up and will return to the Emergency Department with any new, persistent or worsening symptoms. - Physicial Exam PE: 07/31/17 11:21 see above - Medical Decision Making 07/31/17 11:21 see above
--- NOTE | 2017-07-30 15:34 | PDOC ---
History of Present Illness - General Chief Complaint: Back Pain Stated Complaint: BACK PAIN Time Seen by Provider: 07/30/17 14:00 History Source: Patient Exam Limitations: No Limitations - History of Present Illness Initial Comments: 07/30/17 15:34 The patient is a 72 year old female with a history of CHF, CAD, PVD, HTN, DM, Anemia who presents for left flank pain radiating to groin (24/05). Admits to increased urinary frequency, foamy, smelly, but denies dysuria or hematuria. Remote history of nephrolithiasis 30 years ago. Had to have a stent placed. 07/30/17 15:42 Past History - Past Medical History Allergies/Adverse Reactions: Allergies Allergy/AdvReac Type Severity Reaction Status Date / Time No Known Allergies Allergy Verified 07/30/17 14:19 Home Medications: Ambulatory Orders Metformin HCl [Glucophage -] 500 mg PO BID 04/05/12 Metoprolol Succinate [Toprol XL -] 25 mg PO DAILY 04/05/12 Pantoprazole Suspension [Protonix Packets For Oral Suspension -] 40 mg PO DAILY 07/13/12 Vitamin E 400 unit PO BID 07/13/12 Lorazepam 0.5 mg PO PRN PRN MDD 2.0mg 04/28/13 Lidocaine 5% Patch [Lidoderm -] 1 patch TP TID PRN 06/03/13 Cholecalciferol (Vitamin D3) [Vitamin D3] 5,000 unit PO HS 11/12/14 Atorvastatin Ca [Lipitor] 80 mg PO HS 07/22/15 Clopidogrel Bisulfate [Plavix -] 75 mg PO Q48H 07/22/15 Ciclopirox Olamine [Ciclodan] 90 gm TP BID 02/04/17 Magnesium Oxide [Magnesium] 400 mg PO BID 02/04/17 Furosemide [Lasix -] 20 mg PO DAILY tablet 02/06/17 Insulin Glargine,Hum.rec.anlog [Lantus (10mL VIAL) -] 5 units SQ BID 06/17/17 Cyanocobalamin [Vitamin B12 -] 2,000 mcg PO DAILY 06/18/17 Sertraline HCl [Zoloft] 50 mg PO DAILY 06/18/17 Tramadol HCl 50 mg PO Q6H 06/18/17 Lidocaine 5% Patch [Lidoderm -] 1 patch TP DAILY #30 patch 07/30/17 Cardiac Disorders: Yes (Aortic stenosis (Plavix)) CVA: Yes (10 years ago) COPD: Yes CHF: Yes Diabetes: Yes (IDDM) HTN: Yes Hypercholesterolemia: Yes - Surgical History Cardiac Surgery: Yes (cath) Orthopedic Surgery: Yes (R. Knee & Femur) - Immunization History Td Vaccination: Yes Immunization Up to Date: No - Suicide/Smoking/Psychosocial Hx Smoking Status: No Smoking History: Never smoked Years of Tobacco Use: 20 Have you smoked in the past 12 months: No Number of Cigarettes Smoked Daily: 0 If you are a former smoker, when did you quit?: 25yrs Cigars Per Day: 0 Information on smoking cessation initiated: No Hx Alcohol Use: No Drug/Substance Use Hx: No Substance Use Type: None Hx Substance Use Treatment: No Review of Systems - Review of Systems Able to Perform ROS?: Yes Constitutional: No: Symptoms Reported HEENTM: No: Symptoms Reported Respiratory: No: Symptoms reported Cardiac (ROS): No: Symptoms Reported ABD/GI: No: Symptoms Reported : Yes: Frequency, Pain, Urgency. No: Burning, Discharge, Flank Pain, Hematuria, Incontinence, Testicular Swelling All Other Systems: Reviewed and Negative *Physical Exam - Vital Signs Last Vital Signs Temp Pulse Resp BP Pulse Ox 85 24 198/90 100 07/30/17 14:20 07/30/17 14:20 07/30/17 14:20 07/30/17 14:20 - Physical Exam General Appearance: Yes: Moderate Distress, Obese HEENT: positive: EOMI, DARRIUS, Normal ENT Inspection Neck: negative: Tender Respiratory/Chest: positive: Lungs Clear, Normal Breath Sounds. negative: Chest Tender Cardiovascular: positive: Regular Rhythm, Regular Rate, S1, S2, Systolic Murmur Gastrointestinal/Abdominal: positive: Normal Bowel Sounds Musculoskeletal: positive: CVA Tenderness (L) ED Treatment Course - LABORATORY CBC & Chemistry Diagram: 07/30/17 15:15 07/30/17 15:15 - RADIOLOGY Radiology Studies Ordered: Category Date Time Status ABDOMEN & PELVIS CT W/O CONTR [CT] Stat CT Scan 07/30/17 14:39 Ordered Medical Decision Making - Medical Decision Making 07/30/17 15:42 72F with left flank pain radiating to groin. 07/30/17 18:46 labs, CT abdomen negative for stones. will reassess discomfort 07/30/17 18:48 1. No obstructive uropathy. No renal, ureteral or urinary bladder calculi. 2. Cholelithiasis with no CT evidence of acute cholecystitis. 3. Nonspecific prominent mesenteric lymph nodes along the root of the mesentery , similar to 06/18/2017. 4. Dense calcification of the mitral valve annulus and aortic valve. Please correlate clinically for mitral and aortic valvular stenosis. At least moderate coronary artery calcific atherosclerosis. 07/30/17 18:56 Lidocaine patch plus D/C with follow up 07/30/17 19:[address] Barbosa outpatient. *DC/Admit/Observation/Transfer Diagnosis at time of Disposition: Flank pain - Discharge Dispostion Disposition: HOME Condition at time of disposition: Improved Admit: No - Prescriptions Prescriptions: Lidocaine 5% Patch [Lidoderm -] 1 patch TP DAILY #30 patch - Referrals Referrals: Julio C Barbosa MD [Primary Care Provider] - - Patient Instructions Printed Discharge Instructions: DI for Low Back Pain Additional Instructions: Come back to the Emergency Department for any new, worsening or concerning symptoms. Follow up with Dr. Barbosa within 2-3 days. - Post Discharge Activity
[2017-07-30 15:35] LABS: BASO # 0.1 # (0.1-1); BASO % 0.8 % (0-2.0); EOS # 0.1 # (0-4.5); EOS % 1.5 % (0-4.5); LYMPH # 1.4 (8-40); MCH 26.6 pg (25.7-33.7); MCHC 32.1 g/dl (32.0-36.0); MEAN CELL VOLUME 82.9 fl (80-96); MEAN PLT VOLUME 8.6 fl (7.5-11.1); MONO # 0.6 # (3.8-10.2); NEUT # 6.2 # (42.8-82.8); NEUT % 73.1 % (42.8-82.8); PLATELET COUNT 228 K/MM3 (134-434); WHITE BLOOD COUNT 8.5 K/mm3 (4.0-10.0)
[2017-07-30 15:39] LABS: URINE APPEARANCE CLEAR; URINE BILIRUBIN NEGATIVE (NEGATIVE); URINE BLOOD 1+ (NEGATIVE); URINE COLOR STRAW; URINE GLUCOSE (UA) NEGATIVE (NEGATIVE); URINE KETONE TRACE (NEGATIVE); URINE LEUK ESTERASE NEGATIVE (NEGATIVE); URINE NITRITE NEGATIVE (NEGATIVE); URINE PROTEIN NEGATIVE (NEGATIVE); URINE UROBILINOGEN NEGATIVE mg/dL (0.2-1.0)
[2017-07-30 15:58] LABS: ANION GAP 13 (8-16); CO2 22 mmol/L (21-32); CREATININE 1.2 mg/dL (0.55-1.02); GLUCOSE,RANDOM 121 mg/dL (74-106); SGPT/ALT 21 U/L (12-78)
[2017-07-30 16:00] LABS: ALK PHOS 138 U/L (45-117); BILIRUBIN,TOTAL 0.9 mg/dL (0.2-1.0)
[2017-07-30 16:01] LABS: URINE RBC 2 /hpf (0-3); URINE WBC <1 /hpf (3-5)
[2017-07-30 16:02] LABS: SGOT/AST 28 U/L (15-37)
[2017-07-30] MEDS ORDERED: ACETAMINOPHEN 325 MG TABLET (FP) ONE (17:19)
[2017-07-30] MEDS ORDERED: SODIUM CHLORIDE 1,000 ML IV ONE (17:36)
[2017-07-30] MEDS ORDERED: morphine CARPU-JECT 2 MG/1 ML DISP.SYRIN IVPUSH ONE (17:36)
[2017-07-30 18:32] LABS: URINE LEUK ESTERASE Negative (NEGATIVE)
[2017-07-30] MEDS ORDERED: LIDOCAINE 5% TOPICAL PATCH TP ONE (18:59)
[2017-07-30 20:09] VITALS: BP 136/85; PULSE 88
[2017-07-30] MEDS ORDERED: LIDOCAINE 5% TOPICAL PATCH ONE (20:10)
[2017-07-30] MEDS ORDERED: LIDOCAINE PATCH REMOVAL MC SCH (22:00)
== END 2017-07-30 20:14 | disposition home or self-care (01) ==
LOC: JER 13:50
PROC: 3E0337Z Introduction of Electrolytic and Water Balance Substance into Peripheral Vein, Percutaneous Approach (ICD-10-PCS; principal; 2017-07-30)
DX: R10.32 Left lower quadrant pain (principal); K80.20 Calculus of gallbladder without cholecystitis without obstruction; I25.10 Atherosclerotic heart disease of native coronary artery without angina pectoris; Z98.61 Coronary angioplasty status; I11.0 Hypertensive heart disease with heart failure; I73.9 Peripheral vascular disease, unspecified; E11.9 Type 2 diabetes mellitus without complications; I35.0 Nonrheumatic aortic (valve) stenosis; Z79.01 Long term (current) use of anticoagulants
CPT/HCPCS: 36415; 74176-TC; 80053; 81003; 81015; 85025; 99282-25

== ENCOUNTER 2018-05-22 08:27 | Emergency (ER) | payer OTHER, BC ==
[2018-05-22 08:40] VITALS: BMI 34.8
--- NOTE | 2018-05-22 09:58 | PDOC ---
History of Present Illness - General Chief Complaint: Pain, Acute Stated Complaint: ABD PAIN Time Seen by Provider: 05/22/18 09:07 History Source: Patient - History of Present Illness Initial Comments: 73 y/o F w/PMH of CHF, CAD, PVD, HTN, Anemia, DM presents to the ER with L sided flank and abdominal pain. She usually has a dull pain in this area but today it was slightly worse and associated with some nausea. She has not thrown up. She has been able to tolerate food without issue and without worsening her abdominal pain. She says she has been gassy and passing lots of gas. Pain feels like it is gassy as per pt. She denies vomiting, fever, chills, MARTÍNEZ, light- headedness, dizziness, SOB, cough, diarrhea, blood in stool, dark tarry stool, blood in urine, dysuria, LE edema. Her last BM was today but she states she had a small amount today. Last normal sized BM was 2 days ago. Last 2 days she had 1 small BM each day. Has not been using NSAIDs. Of note, pt had radioablation therapy for back pain approximately 2 weeks ago. Last EGD/Colonoscopy was 2016 which showed gastritis in EGD and normal colonoscopy. PMH: CHF, CAD, PVD, HTN, Anemia, DM PSHx: x2, R knee surgery SH: Quit smoking 25 years ago. 50 pack smoking hx. Alleriges: NKDA Past History - Past Medical History Allergies/Adverse Reactions: Allergies Allergy/AdvReac Type Severity Reaction Status Date / Time No Known Allergies Allergy Verified 05/22/18 08:29 Home Medications: Ambulatory Orders Atorvastatin Ca [Lipitor] 40 mg PO HS 05/22/18 Cholecalciferol (Vitamin D3) [Vitamin D3 -] 5,000 unit PO DAILY 05/22/18 Clopidogrel Bisulfate [Plavix] 75 mg PO DAILY 05/22/18 Cyanocobalamin [Vitamin B12 -] 1,000 mcg PO ASDIR 05/22/18 Ferrous Sulfate [Iron] 325 mg PO Q48H 05/22/18 Furosemide [Lasix] 20 mg PO DAILY 05/22/18 Insulin Glargine,Hum.rec.anlog [Lantus] 10 units SQ DAILY 05/22/18 Lidocaine 5% Patch [Lidoderm Patch -] 1 patch TP PRN 05/22/18 Metoprolol Succinate [Toprol Xl] 25 mg PO DAILY 05/22/18 Sitagliptin Phos/Metformin HCl [Janumet 50-1,000 mg Tablet] 1 each PO DAILY Vitamin E 400 unit PO BID 05/22/18 Anemia: (had blood transfusions) Cardiac Disorders: Yes (Aortic stenosis (Plavix) "blocked carotid arteries") CVA: Yes (10 years ago) COPD: Yes CHF: Yes Diabetes: Yes (IDDM) HTN: Yes Hypercholesterolemia: Yes Other medical history: osteoarthritis, osteaoporosis, spinal stenosis, scoliosis , arthritis, - Surgical History Cardiac Surgery: Yes (cath) Orthopedic Surgery: Yes (R. Knee & Femur) - Immunization History Td Vaccination: Yes Immunization Up to Date: No - Suicide/Smoking/Psychosocial Hx Smoking Status: No Smoking History: Never smoked Years of Tobacco Use: 20 Have you smoked in the past 12 months: No Number of Cigarettes Smoked Daily: 0 If you are a former smoker, when did you quit?: 25yrs Cigars Per Day: 0 Hx Alcohol Use: No Drug/Substance Use Hx: No Substance Use Type: None Hx Substance Use Treatment: No Review of Systems - Review of Systems Able to Perform ROS?: Yes Constitutional: No: Chills, Fever Respiratory: No: Cough, Shortness of Breath Cardiac (ROS): No: Chest Pain ABD/GI: Yes: Nausea. No: Diarrhea, Vomiting, Tarry Stools : No: Burning, Dysuria, Hematuria Musculoskeletal: Yes: Back Pain (chronic) Neurological: No: Headache, Dizziness *Physical Exam - Vital Signs Last Vital Signs Temp Pulse Resp BP Pulse Ox 97.4 F L 83 18 155/65 98 05/22/18 08:29 05/22/18 08:29 05/22/18 08:29 05/22/18 08:29 05/22/18 08:29 - Physical Exam General Appearance: Yes: Nourished, Appropriately Dressed. No: Apparent Distress HEENT: positive: EOMI Neck: positive: Supple. negative: Carotid bruit Respiratory/Chest: positive: Lungs Clear, Normal Breath Sounds. negative: Respiratory Distress Cardiovascular: positive: Regular Rhythm, Regular Rate, S1, S2, Murmur ( systolic murmur) Gastrointestinal/Abdominal: positive: Normal Bowel Sounds, Tender (L lumbar region and L flank), Soft Musculoskeletal: negative: CVA Tenderness Extremity: negative: Pedal Edema, Swelling Neurologic: positive: Fully Oriented, Alert, Normal Mood/Affect ED Treatment Course - LABORATORY CBC & Chemistry Diagram: 05/22/18 10:30 05/22/18 10:30 Medical Decision Making - Medical Decision Making 05/22/18 10:02 Pt with LLQ/L flank pain. Will r/o ACS vs GI etiology. EKG ordered, Trops, CMP, CBC, Lactic acid, CXR. If CMP shows normal kidney function will get CT abd w/IV contrast. Will give zofran, maalox, pepcid. 05/22/18 11:34 Labs: WBC 6.7, K 5.7, BUN/Cr 40/1.3, Trop negative. Lactic acid 1.[address] of abd/pelvis w/contrast Pt feels better after maalox and pepcid. Did not want zofran at this time. 05/22/18 11:49 Case discussed and signed out to Dr. Julio C Angel *DC/Admit/Observation/Transfer Diagnosis at time of Disposition: Abdominal pain - Referrals - Patient Instructions - Post Discharge Activity
[2018-05-22] MEDS ORDERED: MAG HYDROX/AL HYDROX/SIMETH 30 ML UNIT-DOSE CUP PO ONE (10:16)
[2018-05-22] MEDS ORDERED: ONDANSETRON 4 MG/2 ML VIAL IVPUSH ONE (10:16)
[2018-05-22] MEDS ORDERED: FAMOTIDINE 20 MG/50 ML IVPB 20 MG/50 ML MG IVPB ONE ×2 (10:16→10:22)
[2018-05-22] MEDS ORDERED: MAG HYDROX/AL HYDROX/SIMETH 30 ML UNIT-DOSE CUP ONE (10:22)
[2018-05-22] MEDS ORDERED: ONDANSETRON 4 MG/2 ML VIAL ONE (10:22)
--- NOTE | 2018-05-22 10:36 | PDOC ---
Attending Attestation - Resident Resident Name: Rafa Gary - ED Attending Attestation I have performed the following: I have examined & evaluated the patient, The case was reviewed & discussed with the resident, I agree w/resident's findings & plan, Exceptions are as noted - HPI HPI: 05/22/18 10:32 73yo F CHF, CAD, PVD, HTN, Anemia, DM presents to the ED with acute on chronic L sided abdominal pain. Pt reports almost a year of on and off LUQ and L flank pain that became worse over the last day prompting her to come in to the ED. + associated nausea. Last BM yesterday was normal and not bloody. +passing flatus. Denies CP, SOB. Pain is not exertional or worse post-prandially. Denies fevers, dysuria, frequency. Denies headache, focal weakness/numbness. Dneies rashes. Has not seen anyone for this pain. No treatments tried. - Physicial Exam PE: 05/22/18 10:35 GENERAL: Awake, alert, and fully oriented, in no acute distress. Pale, but family states baseline HEAD: No signs of trauma EYES: PERRLA, EOMI, sclera anicteric, conjunctiva clear ENT: Auricles normal inspection, hearing grossly normal, nares patent, oropharynx clear without exudates. Moist mucosa NECK: Normal ROM, supple, no lymphadenopathy, JVD, or masses LUNGS: Breath sounds equal, clear to auscultation bilaterally. No wheezes, and no crackles HEART: Regular rate and rhythm, normal S1 and S2, no murmurs, rubs or gallops ABDOMEN: Soft, +LLQ >LUQ ttp, no CVAT, normoactive bowel sounds. No guarding, no rebound. No masses EXTREMITIES: Normal range of motion, no edema. No cords, erythema. +L posterior superior iliac spine ttp NEUROLOGICAL: Normal speech, cranial nerves intact, 5/5 strength in all 4 extremities, normal sensation to light touch in all 4 extremities, normal cerebellar exam, normal gait, normal tone SKIN: Warm, Dry, normal turgor, no rashes or lesions noted. - Medical Decision Making 05/22/18 10:45 73yo F with MMP presents to the ED with worsening L sided abd pain and L PSIS ttp. Vitals with elevated BP to 150s, otherwise wnl. DDx includes but not limited to diverticulitis vs gastritis vs colitis. Plan: -labs -UA -CTAP -declines pain meds -reassess 05/22/18 15:25 Labs with K of 5.7, however CMP hemolyzed UA with 8WBCs and 1+ LE, possible UTI Prescribed for abx REmainder of work up including CTAP negative Unclear etiology of sxs, possibly due to UTI, however due to duration of sxs for 1 year and well appearing pt, unlikely emergent Pt has f/u with PMD Requests DC home I discussed the physical exam findings, ancillary test results and final diagnoses with the patient. I answered all of the patient's questions. The patient was satisfied with the care received and felt comfortable with the discharge plan and treatment plan. The patient will call their primary care physician within 24 hours to arrange follow-up and will return to the Emergency Department with any new, persistent or worsening symptoms. Heart Score/ECG Review #1 05/22/18 10:44 Twelve-lead EKG was performed and reviewed by me. Normal sinus rhythm, rate 70 to. Normal axis and intervals. No ST elevations or T-wave inversions.
[2018-05-22 10:46] LABS: BASO % 0.8 % (0-2.0); EOS % 5.7 % (0-4.5); HEMATOCRIT 35.8 % (32.4-45.2); HEMOGLOBIN 11.9 GM/dL (10.7-15.3); LYMPH % 28.1 % (8-40); MCH 29.2 pg (25.7-33.7); MCHC 33.2 g/dl (32.0-36.0); MEAN CELL VOLUME 88.1 fl (80-96); MEAN PLT VOLUME 8.4 fl (7.5-11.1); MONO % 11.6 % (3.8-10.2); NEUT % 53.8 % (42.8-82.8); PLATELET COUNT 221 K/MM3 (134-434); RBC 4.07 M/mm3 (3.60-5.2); RDW 13.4 % (11.6-15.6); WHITE BLOOD COUNT 6.7 K/mm3 (4.0-10.0)
[2018-05-22 11:25] LABS: ALBUMIN 3.5 g/dl (3.4-5.0); ALK PHOS 105 U/L (45-117); ANION GAP 10 MMOL/L (8-16); BILIRUBIN,TOTAL 0.6 mg/dL (0.2-1); BLOOD UREA NITROGEN 40 mg/dL (7-18); CALCIUM 9.4 mg/dL (8.5-10.1); CHLORIDE 108 mmol/L (98-107); CO2 26 mmol/L (21-32); CREATININE 1.3 mg/dL (0.55-1.3); GLUCOSE,RANDOM 122 mg/dL (74-106); POTASSIUM 5.7 mmol/L (3.5-5.1); SGOT/AST 30 U/L (15-37); SGPT/ALT 22 U/L (13-61); SODIUM 143 mmol/L (136-145); TOT PROT 7.4 g/dl (6.4-8.2)
--- NOTE | 2018-05-22 11:44 | EKG ---
Test Reason : Blood Pressure : / mmHG Vent. Rate : 072 BPM Atrial Rate : 072 BPM P-R Int : 182 ms QRS Dur : 086 ms QT Int : 400 ms P-R-T Axes : 023 065 053 degrees QTc Int : 438 ms NORMAL SINUS RHYTHM NORMAL ECG WHEN COMPARED WITH ECG OF 17-JUN-2017 08:20, ST NO LONGER DEPRESSED IN LATERAL LEADS NONSPECIFIC T WAVE ABNORMALITY NO LONGER EVIDENT IN INFERIOR LEADS NONSPECIFIC T WAVE ABNORMALITY NO LONGER EVIDENT IN LATERAL LEADS Confirmed by ERYN ALMENDAREZ MD ([id number]) on 05/22/2018 11:44:18 AM Referred By: Confirmed By:ERYN ALMENDAREZ MD
[2018-05-22 13:04] VITALS: TEMP 98.2
[2018-05-22 14:42] LABS: URINE APPEARANCE CLEAR; URINE BILIRUBIN NEGATIVE (<2.0 mg/dL); URINE COLOR STRAW; URINE GLUCOSE (UA) NEGATIVE (NEGATIVE); URINE KETONE NEGATIVE (NEGATIVE); URINE LEUK ESTERASE 1+ (NEGATIVE); URINE NITRITE NEGATIVE (NEGATIVE); URINE PROTEIN NEGATIVE (NEGATIVE); URINE UROBILINOGEN NEGATIVE mg/dL (0.2-1.0)
[2018-05-22 15:02] VITALS: BP 153/75; PULSE 78
[2018-05-22 15:08] LABS: EPI CELLS RARE /HPF (FEW); URINE BACTERIA FEW /hpf (NONE SEEN)
--- NOTE | 2018-05-22 15:36 | PDOC ---
*Physical Exam - Vital Signs Last Vital Signs Temp Pulse Resp BP Pulse Ox 98.2 F 78 17 153/75 98 05/22/18 13:04 05/22/18 15:01 05/22/18 15:01 05/22/18 15:01 05/22/18 15:01 - Physical Exam Comments: GENERAL: Well-appearing, well-nourished. No apparent distress. HEENT: Normocephalic, atraumatic. PERRL, EOM intact. CARDIOVASCULAR: Normal S1, S2. Regular rate and rhythm. PULMONARY: Clear to auscultation bilaterally. ABDOMEN: Soft, non-distended, non-tender. EXTREMITIES: Normal ROM in all four extremities. No gross deformities. SKIN: Warm, dry. No rash NEUROLOGICAL: No focal neurological deficits. ED Treatment Course - LABORATORY CBC & Chemistry Diagram: 05/22/18 10:30 05/22/18 10:30 - ADDITIONAL ORDERS Additional order review: Laboratory Results 05/22/18 05/22/18 05/22/18 13:24 10:30 10:30 Sodium 143 Potassium 5.7 H Chloride 108 H Carbon Dioxide 26 Anion Gap 10 BUN 40 H Creatinine 1.3 Creat Clearance w eGFR 40.04 Random Glucose 122 H Lactic Acid 1.6 Calcium 9.4 Total Bilirubin 0.6 AST 30 ALT 22 Alkaline Phosphatase 105 Creatine Kinase 145 Troponin I < 0.02 Total Protein 7.4 Albumin 3.5 Urine Color Straw Urine Appearance Clear Urine pH 6.0 Ur Specific [place] 1.040 H Urine Protein Negative Urine Glucose (UA) Negative Urine Ketones Negative Urine Blood Negative Urine Nitrite Negative Urine Bilirubin Negative Urine Urobilinogen Negative Ur Leukocyte Esterase 1+ H Urine WBC (Auto) 8 Urine RBC (Auto) 1 Ur Epithelial Cells Rare Urine Bacteria Few 05/22/18 10:30 RBC 4.07 MCV 88.1 MCHC 33.2 RDW 13.4 MPV 8.4 Neutrophils % 53.8 Lymphocytes % 28.1 Monocytes % 11.6 H Eosinophils % 5.7 H Basophils % 0.8 - Medications Given in the ED: ED Medications Discontinued Medications Generic Name Dose Route Start Last Admin Trade Name Freq PRN Reason Stop Dose Admin Al Hydroxide/Mg Hydroxide 30 ml 05/22/18 10:16 05/22/18 10:35 Mylanta Oral Suspension - PO 05/22/18 10:17 30 ml ONCE ONE Administration Famotidine/Sodium Chloride 20 mg in 50 mls @ 100 mls/hr 05/22/18 10:16 10:35 Pepcid 20 Mg Premixed Ivpb - IVPB 05/22/18 10:45 100 mls/hr ONCE ONE Administration Ondansetron HCl 4 mg 05/22/18 10:16 05/22/18 10:35 Zofran Injection IVPUSH 05/22/18 10:17 Not Given ONCE ONE Medical Decision Making - Medical Decision Making Received this patient as a sign out. CTAP was negative. UA showed 1+ LE and 8 WBCs. Patient looks and feels good and is requesting to leave the ER. We will DC her with Abx for UTI and PCP FU. *DC/Admit/Observation/Transfer Diagnosis at time of Disposition: Abdominal pain, UTI (urinary tract infection) - Discharge Dispostion Disposition: HOME Condition at time of disposition: Good Decision to Admit order: No - Prescriptions Prescriptions: Ibuprofen [Motrin -] 400 mg PO PRN #60 tablet Sulfamethoxazole/Trimethoprim [Bactrim Ds -] 1 tab PO BID #14 tablet - Referrals - Patient Instructions Printed Discharge Instructions: Urinary Tract Infection Additional Instructions: You came into the ER with abdominal pain. We did some test and found that you have a urinary tract infection. 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 Please make sure to schedule a follow up Appt with your primary care doctor in the next 3 to 5 days to make sure you are getting better and feeling better. Come back to the ER if your pain worsens, you get a bad fever, or experience any new or worsening concerns. Thank you for coming to the [facility] ER. We hope you feel better soon! Print Language: MALTESE - Post Discharge Activity
== END 2018-05-22 15:52 | disposition home or self-care (01) ==
LOC: JER 08:27
PROC: 3E033GC Introduction of Other Therapeutic Substance into Peripheral Vein, Percutaneous Approach (ICD-10-PCS; principal; 2018-05-22)
PROC: 3E033GC Introduction of Other Therapeutic Substance into Peripheral Vein, Percutaneous Approach (ICD-10-PCS; 2018-05-22)
DX: N39.0 Urinary tract infection, site not specified (principal); I25.10 Atherosclerotic heart disease of native coronary artery without angina pectoris; I11.0 Hypertensive heart disease with heart failure; E11.9 Type 2 diabetes mellitus without complications; Z79.4 Long term (current) use of insulin; Z79.84 Long term (current) use of oral hypoglycemic drugs; I73.9 Peripheral vascular disease, unspecified; I35.0 Nonrheumatic aortic (valve) stenosis; Z86.73 Personal history of transient ischemic attack (TIA), and cerebral infarction without residual deficits; M19.90 Unspecified osteoarthritis, unspecified site; J44.9 Chronic obstructive pulmonary disease, unspecified; Z98.61 Coronary angioplasty status
CPT/HCPCS: 36415; 71045-TC-FY; 74177-TC; 80053; 81003; 81015; 82550; 83605; 84484; 85025; 87086; 87186; 93005; 93010; 99283-25

== ENCOUNTER 2018-05-28 05:35 | Emergency (ER) | payer OTHER, BC ==
--- NOTE | 2018-05-28 05:50 | PDOC ---
History of Present Illness - General Chief Complaint: Oral Ulcers Stated Complaint: BURNING TO MOUTH Time Seen by Provider: 05/28/18 05:42 - History of Present Illness Initial Comments: 05/28/18 05:59 This 73-year-old woman with multiple medical problems, including DM, presents with burning pain within her mouth. She was seen at [facility] ER 05/24 with abdominal pain. UTI was diagnosed patient was started on Bactrim. Patient subsequently had tongue/cheek edema was seen by her PMD, . Bactrim was stopped and Benadryl/Claritin/lidocaine gel was started. Over the next 2 days, Patient had increase in redness and pain of her tongue/buccal mucous membrane and throat. No previous history of ALLERGY. No previous history of mouth lesions. She states that she has taken probiotics in the past been not in recent times. She denies difficulty swallowing or breathing. Past History - Past Medical History Allergies/Adverse Reactions: Allergies Allergy/AdvReac Type Severity Reaction Status Date / Time sulfamethoxazole AdvReac Intermediate Verified 05/28/18 05:38 [From Bactrim] trimethoprim [From Bactrim] AdvReac Intermediate Verified 05/28/18 05:38 Home Medications: Ambulatory Orders Atorvastatin Ca [Lipitor] 40 mg PO HS 05/22/18 Cholecalciferol (Vitamin D3) [Vitamin D3 -] 5,000 unit PO DAILY 05/22/18 Clopidogrel Bisulfate [Plavix] 75 mg PO DAILY 05/22/18 Cyanocobalamin [Vitamin B12 -] 1,000 mcg PO ASDIR 05/22/18 Ferrous Sulfate [Iron] 325 mg PO Q48H 05/22/18 Furosemide [Lasix] 20 mg PO DAILY 05/22/18 Insulin Glargine,Hum.rec.anlog [Lantus] 10 units SQ DAILY 05/22/18 Lidocaine 5% Patch [Lidoderm Patch -] 1 patch TP PRN 05/22/18 Metoprolol Succinate [Toprol Xl] 25 mg PO DAILY 05/22/18 Sitagliptin Phos/Metformin HCl [Janumet 50-1,000 mg Tablet] 1,000 mg PO DAILY Vitamin E 400 unit PO BID 05/22/18 Clotrimazole [Mycelex -] 10 mg PO 5XD #35 hima 05/28/18 Anemia: (had blood transfusions) Cardiac Disorders: Yes (Aortic stenosis (Plavix) "blocked carotid arteries") CVA: Yes (10 years ago) COPD: Yes CHF: Yes Diabetes: Yes (IDDM) HTN: Yes Hypercholesterolemia: Yes - Surgical History Cardiac Surgery: Yes (cath) Orthopedic Surgery: Yes (R. Knee & Femur) - Immunization History Td Vaccination: Yes Immunization Up to Date: No - Suicide/Smoking/Psychosocial Hx Smoking Status: No Smoking History: Never smoked Years of Tobacco Use: 20 Have you smoked in the past 12 months: No Number of Cigarettes Smoked Daily: 0 If you are a former smoker, when did you quit?: 25yrs Cigars Per Day: 0 Hx Alcohol Use: No Drug/Substance Use Hx: No Substance Use Type: None Hx Substance Use Treatment: No Review of Systems - Review of Systems Able to Perform ROS?: Yes Comments:: 12 point review of systems is negative except for what is noted in the history of present illness *Physical Exam - Physical Exam Comments: GENERAL: HEAD: Normal with no signs of trauma. EYES: PERRLA, EOMI, sclera anicteric, conjunctiva clear. ENT: Ears normal, nares patent, erythematous tongue with minimal edema; white plaques seen on underside of tongue NECK: Normal range of motion, supple without lymphadenopathy, JVD, or masses. LUNGS: Breath sounds equal, clear to auscultation bilaterally. No wheezes, and no crackles. HEART:Regular rate and rhythm, normal S1 and S2 without murmur, rub or gallop. ABDOMEN:.normal bowel sounds No guarding,tenderness or rebound.No masses No distention. EXTREMITIES: Normal range of motion, no edema. No clubbing or cyanosis. No erythema, or tenderness. NEUROLOGICAL: Cranial nerves II through XII grossly intact. Normal speech. No focal neurological deficits. MUSCULOSKELETAL: Back non-tender to palpation, no CVA tenderness SKIN: Warm, Dry, normal turgor, no rashes or lesions noted. Medical Decision Making - Medical Decision Making 05/28/18 06:02 Clinical presentation most consistent with Meron of oral cavity. Although the patient states that she has some pain with swallowing, no erythema or white plaques could be seen on examination of the pharynx. Chlortrimazole, 10 mg lozenges will be prescribed to be dissolved in the mouth 5 times a day for the next week. She will stop lidocaine gel but continue Benadryl/Claritin as needed for swelling. She should follow-up with Kaitlin Barbosa within 5 days and return to ER if symptoms worsen *DC/Admit/Observation/Transfer Diagnosis at time of Disposition: Meron infection of mouth - Discharge Dispostion Disposition: HOME Condition at time of disposition: Stable - Prescriptions Prescriptions: Clotrimazole [Mycelex -] 10 mg PO 5XD #35 hima - Referrals - Patient Instructions Printed Discharge Instructions: Thrush-Adult Additional Instructions: clotrimazole lozenge: melt slowly in mouth 5 times a day for 1 week stop Lidocaine; can use benadryl/claritin as needed consider probiotic supplement followup with Dr Barbosa within next 5 days return if symptoms worsen - Post Discharge Activity
[2018-05-28 05:54] VITALS: BP 107/57; PULSE 74; TEMP 98; BMI 36.3
== END 2018-05-28 06:00 | disposition home or self-care (01) ==
LOC: FER 05:35
DX: B37.0 Candidal stomatitis (principal); J44.9 Chronic obstructive pulmonary disease, unspecified; E11.9 Type 2 diabetes mellitus without complications; E78.00 Pure hypercholesterolemia, unspecified; I35.0 Nonrheumatic aortic (valve) stenosis; I10 Essential (primary) hypertension; Z87.891 Personal history of nicotine dependence
CPT/HCPCS: 99281-25

== ENCOUNTER 2018-06-21 12:05 | Emergency (ER) | payer OTHER, BC ==
[2018-06-21 12:14] VITALS: TEMP 97.8; BMI 36.3
--- NOTE | 2018-06-21 12:38 | PDOC ---
History of Present Illness - General Chief Complaint: Pain Stated Complaint: NAUSEA,ABD PAIN, DIZINESS Time Seen by Provider: 06/21/18 12:22 - History of Present Illness Initial Comments: 06/21/18 13:02 The patient is a 73 year old female with a history of HTN, HLD, DM, CAD, CHF, CVA, Aortic Stenosis, Anemia who presents for evaluation of abdominal pain. The patient notes that she has been feeling more fatigued over the past few weeks and have been following with her legal librarian to monitor her HGB due to her prior history of anemia. She noted that over the past 5 days, she has been experiencing intermittent darker stools and today began experiencing poorly described epigastric abdominal pain with associated nausea after restarting her palvix that she had been take off of over the past few months. She notes that her family and her legal librarian believe she appears paler than usual. She otherwise denies fevers, chills, SOB, chest pain, vomiting, or changes with urination or bowel movements. Past History - Past Medical History Allergies/Adverse Reactions: Allergies Allergy/AdvReac Type Severity Reaction Status Date / Time sulfamethoxazole AdvReac Intermediate Verified 06/21/18 12:14 [From Bactrim] trimethoprim [From Bactrim] AdvReac Intermediate Verified 06/21/18 12:14 Home Medications: Ambulatory Orders Atorvastatin Ca [Lipitor] 40 mg PO HS 05/22/18 Cholecalciferol (Vitamin D3) [Vitamin D3 -] 5,000 unit PO DAILY 05/22/18 Clopidogrel Bisulfate [Plavix] 75 mg PO DAILY 05/22/18 Cyanocobalamin [Vitamin B12 -] 1,000 mcg PO ASDIR 05/22/18 Ferrous Sulfate [Iron] 325 mg PO Q48H 05/22/18 Furosemide [Lasix] 20 mg PO DAILY 05/22/18 Insulin Glargine,Hum.rec.anlog [Lantus] 10 units SQ DAILY 05/22/18 Lidocaine 5% Patch [Lidoderm Patch -] 1 patch TP PRN 05/22/18 Metoprolol Succinate [Toprol Xl] 25 mg PO DAILY 05/22/18 Sitagliptin Phos/Metformin HCl [Janumet 50-1,000 mg Tablet] 1,000 mg PO DAILY Vitamin E 400 unit PO BID 10/18/18 Anemia: Yes (had blood transfusions) Cardiac Disorders: Yes (Aortic stenosis (Plavix) "blocked carotid arteries") CVA: Yes (10 years ago) COPD: Yes CHF: Yes Diabetes: Yes (IDDM) HTN: Yes Hypercholesterolemia: Yes - Surgical History Cardiac Surgery: Yes (cath) Orthopedic Surgery: Yes (R. Knee & Femur) - Immunization History Td Vaccination: Yes Immunization Up to Date: No - Suicide/Smoking/Psychosocial Hx Smoking Status: No Smoking History: Never smoked Years of Tobacco Use: 20 Have you smoked in the past 12 months: No Number of Cigarettes Smoked Daily: 0 If you are a former smoker, when did you quit?: 25yrs Cigars Per Day: 0 Hx Alcohol Use: No Drug/Substance Use Hx: No Substance Use Type: None Hx Substance Use Treatment: No Review of Systems - Review of Systems Comments:: 06/21/18 13:06 Constitutional: Fatigue. No fevers, chills, malaise HEENT: No Rhinorrhea, nasal congestion, visual changes Cardiovascular: No chest pain, syncope, palpitations, lightheadedness Respiratory: No Cough, SOB, Hemoptysis, Gastrointestinal: Abdominal pain, Nausea, No Vomiting, Constipation, Diarrhea, Genitourinary: No Dysuria, Frequency, Urgency, Hesitancy, Hematuria, Flank pain Musculoskeletal: No Myalgia, arthralgia Skin: Pallor. No rashes, itching, bruising Neurologic: No Headache, Dizziness, Numbness, Weakness, or Tingling Psychiatric: No Hallucinations. No SI or HI *Physical Exam - Vital Signs Last Vital Signs Temp Pulse Resp BP Pulse Ox 97.8 F 77 18 163/49 L 95 06/21/18 12:10 06/21/18 12:10 06/21/18 12:10 06/21/18 12:10 06/21/18 12:10 - Physical Exam Comments: 06/21/18 13:07 General Appearance: Nourished. No Apparent Distress HEENT: No Pharyngeal Erythema, Tonsillar Exudate, Tonsillar Erythema Neck: No Cervical Lymphadenopathy Respiratory/Chest: Lungs Clear, Normal Breath Sounds. No Crackles, Rales, Rhonchi, Wheezing Cardiovascular: Regular Rhythm, Regular Rate. 3/6 Systolic murmur noted on exam. No Gallops, Rubs Gastrointestinal/Abdominal: Normal Bowel Sounds, Soft. Epigastric tenderness to palpation on exam. No Guarding, Rebound, Musculoskeletal: No CVA Tenderness Extremity: Normal Capillary Refill Integumentary: Normal Color, Dry, Warm Neurologic: Fully Oriented, Alert, Normal Mood/Affect, Normal Response, ED Treatment Course - LABORATORY CBC & Chemistry Diagram: 06/21/18 13:10 06/21/18 15:25 Medical Decision Making - Medical Decision Making 06/21/18 13:09 The patient is a 73 year old female with a history of HTN, HLD, DM, CAD, CHF, CVA, Aortic Stenosis, Anemia who presents for evaluation of abdominal pain. Differential includes but is not limited to: ACS, Gastritis, Peptic Ulcer, Anemia, GI bleed, UTI, Infectious, Metabolic Derangement. Given the patient's history and physical exam, we will obtain a cbc, cmp, troponin, ekg, ua, to evaluate further. We will treat with pepcid and zofran and continue to monitor and reassess while here in the ED. 06/21/18 17:24 CBC, cmp, troponin, ua are unremarkable. Gallbladder US demonstrates gallstones , but no evidence of cholecysitis as read by our radiologist. The patient reports improvement in her symptoms. We are comfortable discharging the patient home with GI follow up. We discussed the results, plan, and return precautions with the patient who voiced understanding and is agreeable with the plan. *DC/Admit/Observation/Transfer Diagnosis at time of Disposition: Abdominal pain Qualifiers: Abdominal location: unspecified location Qualified Code(s): R10.9 - Unspecified abdominal pain - Discharge Dispostion Disposition: HOME Condition at time of disposition: Stable Decision to Admit order: No - Referrals Referrals: Julio C Barbosa MD [Primary Care Provider] - Prasanth Mares DO [Staff Physician] - - Patient Instructions Printed Discharge Instructions: DI for Abdominal Pain-Adult Additional Instructions: Please return to the ER if you experience concerning or worsening symptoms including worsening difficulty breathing, weakness, or chest pain, abdominal pain, vomiting. Your lab results and ultrasound were normal here in the ER. Please call to schedule a follow up appointment with your primary care provider and our GI specialist within 2-3 days to discuss your ER visit and further management of your symptoms. - Post Discharge Activity
[2018-06-21] MEDS ORDERED: ONDANSETRON 4 MG/2 ML VIAL IVPUSH ONE (12:56)
[2018-06-21] MEDS ORDERED: FAMOTIDINE 20 MG/50 ML IVPB 20 MG/50 ML MG IVPB ONE ×2 (12:56→13:21)
--- NOTE | 2018-06-21 13:17 | PDOC ---
Attending Attestation - Resident Resident Name: Mane Rodriguez - ED Attending Attestation I have performed the following: I have examined & evaluated the patient, The case was reviewed & discussed with the resident, I agree w/resident's findings & plan, Exceptions are as noted - HPI HPI: 73 yo F history HTN, HL, DM, CAD, CHF, CVA, aortic stenosis, anemia, gallstones presents wi6th epigastric pain, fatigue. No vomiting, but having nausea. No diarrhea, fever, cp, SOB, dysuria. - Physicial Exam PE: GENERAL: Awake, alert, and fully oriented, in no acute distress HEAD: No signs of trauma EYES: PERRLA, EOMI, sclera anicteric, conjunctiva clear ENT: Auricles normal inspection, hearing grossly normal, nares patent, oropharynx clear without exudates. Moist mucosa NECK: Normal ROM, supple, no lymphadenopathy, JVD, or masses LUNGS: Breath sounds equal, clear to auscultation bilaterally. No wheezes, and no crackles HEART: Regular rate and rhythm, normal S1 and S2, no murmurs, rubs or gallops ABDOMEN: Soft, +epigastric tenderness, normoactive bowel sounds. No guarding, no rebound. No masses EXTREMITIES: Normal range of motion, no edema. No clubbing or cyanosis. No cords, erythema, or tenderness NEUROLOGICAL: Cranial nerves II through XII grossly intact. Normal speech, normal gait SKIN: Warm, Dry, normal turgor, no rashes or lesions noted. - Medical Decision Making Pt is well-appearing, noted to have epigastric tenderness, no signs of acute abdomen. Will obtain sono to r/o acute cholecystitis. Symptoms likely secondary to biliary colic.
[2018-06-21 13:20] LABS: BASO % 2.2 % (0-2.0); HEMATOCRIT 31.4 % (32.4-45.2); HEMOGLOBIN 10.1 GM/dL (10.7-15.3); LYMPH % 25.5 % (8-40); MCH 28.7 pg (25.7-33.7); MCHC 32.2 g/dl (32.0-36.0); MEAN CELL VOLUME 89.1 fl (80-96); MEAN PLT VOLUME 8.2 fl (7.5-11.1); MONO % 7.4 % (3.8-10.2); NEUT % 59.9 % (42.8-82.8); PLATELET COUNT 228 K/MM3 (134-434); RBC 3.53 M/mm3 (3.60-5.2); RDW 13.3 % (11.6-15.6); WHITE BLOOD COUNT 5.9 K/mm3 (4.0-10.0)
[2018-06-21] MEDS ORDERED: ONDANSETRON 4 MG/2 ML VIAL ONE (13:21)
[2018-06-21 13:25] LABS: URINE APPEARANCE CLEAR; URINE BILIRUBIN NEGATIVE (<2.0 mg/dL); URINE COLOR LTYELLOW; URINE GLUCOSE (UA) NEGATIVE (NEGATIVE); URINE KETONE NEGATIVE (NEGATIVE); URINE LEUK ESTERASE NEGATIVE (NEGATIVE); URINE NITRITE NEGATIVE (NEGATIVE); URINE PROTEIN NEGATIVE (NEGATIVE); URINE UROBILINOGEN NEGATIVE mg/dL (0.2-1.0)
[2018-06-21 13:52] LABS: ALBUMIN 3.3 g/dl (3.4-5.0); ALK PHOS 108 U/L (45-117); ANION GAP 7 MMOL/L (8-16); BILIRUBIN,TOTAL 0.7 mg/dL (0.2-1); BLOOD UREA NITROGEN 34 mg/dL (7-18); CALCIUM 9.2 mg/dL (8.5-10.1); CHLORIDE 109 mmol/L (98-107); CO2 23 mmol/L (21-32); CREATININE 1.2 mg/dL (0.55-1.3); GLUCOSE,RANDOM 134 mg/dL (74-106); POTASSIUM 5.6 mmol/L (3.5-5.1); SGOT/AST 24 U/L (15-37); SGPT/ALT 19 U/L (13-61); SODIUM 139 mmol/L (136-145); TOT PROT 6.9 g/dl (6.4-8.2)
--- NOTE | 2018-06-21 14:41 | EKG ---
Test Reason : Blood Pressure : / mmHG Vent. Rate : 071 BPM Atrial Rate : 071 BPM P-R Int : 164 ms QRS Dur : 088 ms QT Int : 406 ms P-R-T Axes : 058 066 057 degrees QTc Int : 441 ms NORMAL SINUS RHYTHM NORMAL ECG WHEN COMPARED WITH ECG OF 22-MAY-2018 10:01, NO SIGNIFICANT CHANGE WAS FOUND Confirmed by Abad Sethi ([id number]) on 06/21/2018 2:41:16 PM Referred By: Confirmed By:Abad Sethi
[2018-06-21 15:53] LABS: ALBUMIN 3.4 g/dl (3.4-5.0); ALK PHOS 115 U/L (45-117); ANION GAP 7 MMOL/L (8-16); BILIRUBIN,TOTAL 0.6 mg/dL (0.2-1); BLOOD UREA NITROGEN 32 mg/dL (7-18); CALCIUM 9.1 mg/dL (8.5-10.1); CHLORIDE 110 mmol/L (98-107); CO2 23 mmol/L (21-32); CREATININE 1.2 mg/dL (0.55-1.3); GLUCOSE,RANDOM 122 mg/dL (74-106); LIPASE 232 U/L (73-393); POTASSIUM 5.1 mmol/L (3.5-5.1); SGOT/AST 19 U/L (15-37); SGPT/ALT 19 U/L (13-61); SODIUM 140 mmol/L (136-145); TOT PROT 7.2 g/dl (6.4-8.2)
[2018-06-21 18:09] VITALS: BP 129/43; PULSE 91
== END 2018-06-21 18:10 | disposition home or self-care (01) ==
LOC: JER 12:05
PROC: 3E033GC Introduction of Other Therapeutic Substance into Peripheral Vein, Percutaneous Approach (ICD-10-PCS; principal; 2018-06-21)
PROC: 3E033GC Introduction of Other Therapeutic Substance into Peripheral Vein, Percutaneous Approach (ICD-10-PCS; 2018-06-21)
DX: R10.9 Unspecified abdominal pain (principal); I25.10 Atherosclerotic heart disease of native coronary artery without angina pectoris; Z98.61 Coronary angioplasty status; I11.0 Hypertensive heart disease with heart failure; I35.0 Nonrheumatic aortic (valve) stenosis; I65.23 Occlusion and stenosis of bilateral carotid arteries; Z79.01 Long term (current) use of anticoagulants; J44.9 Chronic obstructive pulmonary disease, unspecified; E11.9 Type 2 diabetes mellitus without complications; Z79.4 Long term (current) use of insulin; Z79.84 Long term (current) use of oral hypoglycemic drugs; E78.5 Hyperlipidemia, unspecified; D64.9 Anemia, unspecified; Z86.73 Personal history of transient ischemic attack (TIA), and cerebral infarction without residual deficits
CPT/HCPCS: 36415; 76705-TC; 80053; 81003; 82272; 82550; 83690; 84484; 85025; 87086; 93005; 93010; 96365; 96375; 99284-25

== ENCOUNTER 2019-04-04 08:51 | Emergency (ER) | payer OTHER, BC ==
[2019-04-04 08:58] VITALS: BMI 39.1
--- NOTE | 2019-04-04 09:28 | PDOC ---
History of Present Illness - General Chief Complaint: Pain Stated Complaint: PAIN Time Seen by Provider: 04/04/19 09:23 - History of Present Illness Initial Comments: 04/04/19 11:37 HPI: 74 y/o F with hx of HTN, HLD, IDDM, CAD, CHF, CVA, aortic stenosis s/p aortiv valve replacement and pacemaker placement on 03/20/19, PVD s/p LE stent placement , anemia presenting with chest fluttering with radiation into the neck since last night. She notes that occurred randomly without any inciting event. It feels like a pulsating feeling similar to a muscle twitch, primarily in her left neck (same side as pacemaker). This morning she noted that the frequency of the neck pulsating increased. Episodes only last a few minutes and then self resolve. Patient denies MARTÍNEZ, vision change, chest pain, SOB, cough, leg swelling, abdominal pain, nausea, vomiting, diarrhea, constipation, dysuria, hematuria, BPR, lightheadedness, weakness, sensory changes. PMHx: as noted above ROS: as noted SHx: Denies tobacco use; no alcohol use; no rec drugs Allergies: NKDA PCP: Dr Julio C Barbosa Unit Coordinator: Dr Martell Past History - Past Medical History Allergies/Adverse Reactions: Allergies Allergy/AdvReac Type Severity Reaction Status Date / Time sulfamethoxazole AdvReac Intermediate Verified 04/04/19 08:57 [From Bactrim] trimethoprim [From Bactrim] AdvReac Intermediate Verified 04/04/19 08:57 Home Medications: Ambulatory Orders Atorvastatin Ca [Lipitor] 40 mg PO HS 05/22/18 Cholecalciferol (Vitamin D3) [Vitamin D3 -] 5,000 unit PO DAILY 05/22/18 Clopidogrel Bisulfate [Plavix] 75 mg PO DAILY 05/22/18 Cyanocobalamin [Vitamin B12 -] 1,000 mcg PO ASDIR 05/22/18 Ferrous Sulfate [Iron] 325 mg PO Q48H 05/22/18 Furosemide [Lasix] 40 mg PO DAILY 05/22/18 Insulin Glargine,Hum.rec.anlog [Lantus] 10 units SQ DAILY 05/22/18 Metoprolol Succinate [Toprol Xl] 50 mg PO DAILY 05/22/18 Sitagliptin Phos/Metformin HCl [Janumet 50-1,000 mg Tablet] 1,000 mg PO DAILY Vitamin E 400 unit PO BID 05/22/18 Anemia: Yes (had blood transfusions) Cardiac Disorders: Yes (Aortic stenosis (Plavix) "blocked carotid arteries") CVA: Yes (10 years ago) COPD: Yes CHF: Yes Diabetes: Yes (IDDM) HTN: Yes Hypercholesterolemia: Yes - Surgical History Cardiac Surgery: Yes (cath pacemaker 03/20/19, valve replacement) Orthopedic Surgery: Yes (R. Knee & Femur) - Immunization History Td Vaccination: Yes Immunization Up to Date: No - Suicide/Smoking/Psychosocial Hx Smoking Status: No Smoking History: Former smoker Years of Tobacco Use: 20 Have you smoked in the past 12 months: No Number of Cigarettes Smoked Daily: 0 If you are a former smoker, when did you quit?: 25yrs Cigars Per Day: 0 Information on smoking cessation initiated: No Hx Alcohol Use: No Drug/Substance Use Hx: No Substance Use Type: None Hx Substance Use Treatment: No Review of Systems - Review of Systems Comments:: 04/04/19 11:49 GENERAL/CONSTITUTIONAL: No fever or chills. No weakness. HEAD, EYES, EARS, NOSE AND THROAT: No change in vision. No ear pain or discharge. No sore throat. CARDIOVASCULAR: No chest pain or shortness of breath RESPIRATORY: No cough, wheezing, or hemoptysis. GASTROINTESTINAL: No nausea, vomiting, diarrhea or constipation. GENITOURINARY: No dysuria, frequency, or change in urination. MUSCULOSKELETAL: No joint or muscle swelling or pain. No neck or back pain. SKIN: No rash NEUROLOGIC: No headache, vertigo, loss of consciousness, or change in strength/ sensation. ENDOCRINE: No increased thirst. No abnormal weight change HEMATOLOGIC/LYMPHATIC: No anemia, easy bleeding, or history of blood clots. ALLERGIC/IMMUNOLOGIC: No hives or skin allergy. *Physical Exam - Vital Signs Last Vital Signs Temp Pulse Resp BP Pulse Ox 98.3 F 67 18 178/59 H 99 04/04/19 08:55 04/04/19 08:55 04/04/19 08:55 04/04/19 09:27 04/04/19 08:55 - Physical Exam Comments: 04/04/19 11:49 GENERAL: Awake, alert, and fully oriented, no acute distress HEAD: No signs of trauma, normocephalic, atraumatic EYES: EOMI, sclera anicteric, conjunctiva clear ENT: Auricles normal inspection, hearing grossly normal, nares patent, oropharynx clear without exudates. Moist mucosa NECK: Normal ROM, no lymphadenopathy LUNGS: No increased work of breathing, symmetrical chest rise, clear to auscultation bilaterally, no wheezes, crackles or rhonchi HEART: Regular rate and rhythm, normal S1 and S2, no murmurs, peripheral pulses 2+ and equal bilaterally; pacemaker in place with no overlying skin changes, erythema, purulence; incision intact ABDOMEN: Soft, nontender, nondistended, normoactive bowel sounds. No guarding, no rebound. No masses EXTREMITIES: Normal inspection, Normal range of motion, no edema. No clubbing or cyanosis. NEUROLOGICAL: Cranial nerves II through XII grossly intact. Normal speech, normal gait, no focal sensorimotor deficits SKIN: Warm, Dry, normal turgor, no rashes or lesions noted ED Treatment Course - LABORATORY CBC & Chemistry Diagram: 04/04/19 09:45 04/04/19 09:45 Medical Decision Making - Medical Decision Making 04/04/19 12:00 74 y/o F with hx of HTN, HLD, IDDM, CAD, CHF, CVA, aortic stenosis s/p aortiv valve replacement and pacemaker placement on 03/20/19, PVD s/p LE stent placement , anemia presenting with chest fluttering with pulsating radiation into the neck since last night and increasing this AM; denies any other cardiac associations. Vitals wnl on arrival. PE unremarkable. will workup for arrhythmia , lyte abnormalities, equipment failure, infection. -cbc, cmnp, trops -ekg, cxr -contacted Dr Godoy (covering for [facility]) and recommended contacting [employer] for interrogation as well as Chest CT with con if Cr wnl for further assessment for hematoma vs other causes of possible equipment failure 04/04/19 12:03 pacemaker interrogated and no events noted by technicians labs unremarkable EKG: normal sinus, ventricularly paced, widened qrs, left axis deviation CXR: no acute abnormality Cr 1.2 (baseline 1.1-1.2); will proceed to chest CT 04/04/19 15:[address] with contrast In comparison to a prior CT exam of 01/21/2009 note is made of interval transcatheter aortic valve replacement as well as interval placement of a dual chamber transvenous cardiac pacemaker. Cardiac size appears to be borderline. No pericardial effusion is visualized. No infiltrate or pleural effusion is seen. Note is again made of minimal bibasilar linear parenchymal scarring. No gross central pulmonary embolism is noted. The exam was performed utilizing standard contrast enhanced technique. Incidental note is made of a small stable 0.7 x 0.3 cm noncalcified nodule straddling the horizontal fissure. No discrete lymphadenopathy is seen. There is no aortic aneurysm. Interval increased number of small gallbladder calculi is noted. Impression: Status post transcatheter aortic valve replacement. Transvenous cardiac pacemaker in place. *DC/Admit/Observation/Transfer Diagnosis at time of Disposition: Palpitations - Discharge Dispostion Disposition: HOME Condition at time of disposition: Stable Decision to Admit order: No - Referrals Referrals: Julio C Barbosa MD [Primary Care Provider] - - Patient Instructions Printed Discharge Instructions: DI for Atypical Chest Pain, DI for Pacemaker Insertion Additional Instructions: Additional Instructions: Please return to the emergency department with any new or worsening symptoms or concerns including severe chest pain, difficulty breathing, increased sweating, fainting, vomiting. Please follow up with your loft patternmaker Dr Martell on Saturday of next week. Call the office on Saturday after the holiday to make an appointment for the following day. Continue to take medications as prescribed. - Post Discharge Activity
[2019-04-04 10:19] LABS: BASO % 0.8 % (0-2.0); HEMOGLOBIN 11.1 GM/dL (10.7-15.3); LYMPH % 20.5 % (8-40); MCH 29.1 pg (25.7-33.7); MCHC 33.5 g/dl (32.0-36.0); MEAN CELL VOLUME 86.8 fl (80-96); MEAN PLT VOLUME 8.1 fl (7.5-11.1); NEUT % 64.7 % (42.8-82.8); PLATELET COUNT 219 K/MM3 (134-434); RBC 3.81 M/mm3 (3.60-5.2); RDW 13.6 % (11.6-15.6); WHITE BLOOD COUNT 6.5 K/mm3 (4.0-10.0)
[2019-04-04 10:32] LABS: INR 0.98 (0.83-1.09); PROTHROMBIN TIME (PATIENT) 11.6 SEC (9.7-13.0)
[2019-04-04 10:49] LABS: ALBUMIN 3.4 g/dl (3.4-5.0); BILIRUBIN,TOTAL 0.4 mg/dL (0.2-1); CALCIUM 9.2 mg/dL (8.5-10.1); CREATININE 1.2 mg/dL (0.55-1.3); POTASSIUM 4.6 mmol/L (3.5-5.1); TOT PROT 7.4 g/dl (6.4-8.2)
--- NOTE | 2019-04-04 14:34 | PDOC ---
Documentation entered by Delaney Lancaster SCRIBE, acting as scribe for Tresa Reed MD. Tresa Reed MD: This documentation has been prepared by the Tonny madera Adrianna, SCRIBE, under my direction and personally reviewed by me in its entirety. I confirm that the documentation accurately reflects all work, treatment, procedures, and medical decision making performed by me. Attending Attestation - Resident Resident Name: BenjaminBonnie - ED Attending Attestation I have performed the following: I have examined & evaluated the patient, The case was reviewed & discussed with the resident, I agree w/resident's findings & plan, Exceptions are as noted - HPI HPI: 04/04/19 14:28 74 yo F with h/o avr, pulm htn chf recent pacemaker 2 weeks ago here with c/o palpitations feeling pulsating felling in left left upper chest radiating to her neck and jaw. no f/c no sob. no leg swelling. no redness at pacer site. steristrips still in place. no cough. called her asphalt tamping machine operator dr loznao who told her to come to ed. no f/c no other complaints. - Physicial Exam PE: 04/04/19 14:30 awaake alert lungs clear bilat heart rrr pacer site cdi no erythema, no palp fluid collection ext wwp. noted varicosities. no edema. - Medical Decision Making 04/04/19 14:31 74 yo F recent AVR endovascular and pacer 2 weeks ago here with palpitations feeling over chest neck. differential pacer malfunction infection electrolyte malfunction. no cp no new sob. no leg swelling. plan ct chest labs ekg cxr. boyer Vinveli no events recorded. d/w dr walker, recommended ct chests . Heart Score/ECG Review #1 General ECG Interpretation: Normal Rate, Normal Intervals, No acute ischemic changes Compared to previous ECG there are: Other (paced , wide qrs, left axis.)
[2019-04-04 15:59] VITALS: BP 181/72; PULSE 80; TEMP 98.2
--- NOTE | 2019-04-05 09:38 | EKG ---
Test Reason : Blood Pressure : / mmHG Vent. Rate : 069 BPM Atrial Rate : 069 BPM P-R Int : 168 ms QRS Dur : 182 ms QT Int : 472 ms P-R-T Axes : 067 -68 079 degrees QTc Int : 505 ms POOR DATA QUALITY, INTERPRETATION MAY BE ADVERSELY AFFECTED Atrial-sensed ventricular-paced rhythm ABNORMAL ECG WHEN COMPARED WITH ECG OF 21-JUN-2018 13:16, ELECTRONIC VENTRICULAR PACEMAKER HAS REPLACED SINUS RHYTHM Confirmed by ERYN ALMENDAREZ MD ([id number]) on 04/05/2019 9:38:25 AM Referred By: Confirmed By:ERYN ALMENDAREZ MD
== END 2019-04-04 16:25 | disposition home or self-care (01) ==
LOC: JER 08:51
DX: R00.2 Palpitations (principal); I25.10 Atherosclerotic heart disease of native coronary artery without angina pectoris; I11.0 Hypertensive heart disease with heart failure; I50.9 Heart failure, unspecified; I65.29 Occlusion and stenosis of unspecified carotid artery; E11.9 Type 2 diabetes mellitus without complications; Z79.4 Long term (current) use of insulin; E78.5 Hyperlipidemia, unspecified; I73.9 Peripheral vascular disease, unspecified; J44.9 Chronic obstructive pulmonary disease, unspecified; D64.9 Anemia, unspecified; Z86.73 Personal history of transient ischemic attack (TIA), and cerebral infarction without residual deficits; Z79.01 Long term (current) use of anticoagulants; Z95.2 Presence of prosthetic heart valve; Z95.828 Presence of other vascular implants and grafts; Z95.0 Presence of cardiac pacemaker
CPT/HCPCS: 36415; 71046-TC-FY; 71260-TC; 80053; 82550; 84484; 85025; 85610; 85730; 93005; 93010; 99284-25

== ENCOUNTER 2019-08-09 10:09 | Emergency (ER) | payer OTHER, BC ==
[2019-08-09 10:14] VITALS: BMI 37.4
--- NOTE | 2019-08-09 10:57 | PDOC ---
History of Present Illness - General Chief Complaint: Lightheaded Stated Complaint: LIGHTHEADED Time Seen by Provider: 08/09/19 10:47 - History of Present Illness Initial Comments: Kirsten Marquez is a 74yo HTN, HLD, IDDM, CAD, CHF, CVA, aortic stenosis s/p aortic valve replacement and pacemaker placement on 03/20/19, PVD s/p LE stent placement, anemia on iron therapy who presents with several weeks of fatigue, generalized malaise, and generalized weakness. She reports that she had similar symptoms in 2017 when she was given a blood transfusion for anemia, and she was concerned that she was anemic again. She denies any SOB, chest pain, palpitations, tachycardia, or syncope/pre-syncope. She states that she last had blood tests about 3 months ago, and her hgb was 12 at that time. She additionally reports that she follows with hematology for the anemia, and she was started on iron treatment, though she was last seen by her shade hanger in summer. Ms Marquez additionally reports that for the past two weeks she has had right- sided sinus pressure, post-nasal drip, thick rhinorrhea, and productive cough as well as mild nausea. She denies fever, difficulty breathing, chest pain, vomiting, diarrhea, recent travel, or sick contacts. Past History - Past Medical History Allergies/Adverse Reactions: Allergies Allergy/AdvReac Type Severity Reaction Status Date / Time sulfamethoxazole AdvReac Intermediate Verified 08/09/19 10:14 [From Bactrim] trimethoprim [From Bactrim] AdvReac Intermediate Verified 08/09/19 10:14 Home Medications: Ambulatory Orders Atorvastatin Ca [Lipitor] 40 mg PO HS 05/22/18 Cholecalciferol (Vitamin D3) [Vitamin D3 -] 5,000 unit PO DAILY 05/22/18 Clopidogrel Bisulfate [Plavix] 75 mg PO DAILY 05/22/18 Cyanocobalamin [Vitamin B12 -] 1,000 mcg PO DAILY 05/22/18 Ferrous Sulfate [Iron] 325 mg PO DAILY 05/22/18 Furosemide [Lasix] 40 mg PO DAILY 05/22/18 Insulin Glargine,Hum.rec.anlog [Lantus] 10 units SQ DAILY 05/22/18 Metoprolol Succinate [Toprol Xl] 50 mg PO DAILY 05/22/18 Sitagliptin Phos/Metformin HCl [Janumet 50-1,000 mg Tablet] 1,000 mg PO DAILY Vitamin E 400 unit PO BID 05/22/18 Aspirin [Aspirin EC] 81 mg PO DAILY 08/09/19 Cephalexin [Keflex] 500 mg PO Q12H #14 capsule 08/09/19 Lidocaine 5% Patch [Lidoderm -] 1 patch TD DAILY 08/09/19 Anemia: Yes (had blood transfusions) Cardiac Disorders: Yes (Aortic stenosis (Plavix) "blocked carotid arteries") CVA: Yes (10 years ago) COPD: Yes CHF: Yes Diabetes: Yes (IDDM) HTN: Yes Hypercholesterolemia: Yes - Surgical History Cardiac Surgery: Yes (cath pacemaker 03/20/19, valve replacement) Orthopedic Surgery: Yes (R. Knee & Femur) - Immunization History Td Vaccination: Yes Immunization Up to Date: No - Psycho Social/Smoking Cessation Hx Smoking Status: No Smoking History: Former smoker Years of Tobacco Use: 20 Have you smoked in the past 12 months: No Number of Cigarettes Smoked Daily: 0 If you are a former smoker, when did you quit?: 25yrs Cigars Per Day: 0 Information on smoking cessation initiated: No Hx Alcohol Use: No Drug/Substance Use Hx: No Substance Use Type: None Hx Substance Use Treatment: No Review of Systems - Review of Systems Comments:: General: No fevers, no chills, no weight or appetite change, + malaise HEENT: No changes in vision, no changes in hearing, + congestion, no sore throat CV: No chest pain, no palpitations, no LE edema Pulm: No SOB, + cough, no wheezing GI: + nausea, no vomiting, no change in bowel habits, no melena : No frequency, no urgency, no dysuria Musc: No back pain, no joint swelling, no recent injury Skin: No rash, no lesions, no erythema Endo: No excessive thirst, no heat/cold intolerance Heme: No unusual bruising or bleeding, no swollen glands Neuro: No syncope, no numbness/tingling, no focal weakness Vasc: No claudication Psych: No recent change in mood, no SI or HI *Physical Exam - Vital Signs Last Vital Signs Temp Pulse Resp BP Pulse Ox 98.0 F 70 18 190/60 H 98 08/09/19 10:10 08/09/19 10:10 08/09/19 10:10 08/09/19 10:10 08/09/19 10:10 - Physical Exam General: Comfortable, no acute distress HEENT: Atraumatic, PERRL, EOMI, MMM, voice normal, normal neck ROM. Right maxillary sinus tenderness, TM clear b/l Cards: RRR, no murmur appreciated Pulm: Comfortable on room air, clear to auscultation bilaterally Abd: Soft, nontender, nondistended : No CVA tenderness Ext: Atraumatic. No LE edema. ROM intact. WWP Skin: Normal color, no rashes or lesions Neuro: A&Ox3, CN grossly intact, normal speech, motor/sensory grossly intact and symmetric Psych: Mood appropriate to situation ED Treatment Course - LABORATORY CBC & Chemistry Diagram: 08/09/19 11:30 08/09/19 11:30 Medical Decision Making - Medical Decision Making 08/09/19 10:57 Kirsten Marquez is a 74yo HTN, HLD, IDDM, CAD, CHF, CVA, aortic stenosis s/p aortic valve replacement and pacemaker placement on 03/20/19, PVD s/p LE stent placement, anemia on iron therapy who presents with several weeks of fatigue, generalized malaise, and generalized weakness, which she says is how she felt when she required a blood transfusion several years ago. She denies SOB, chest pain, syncope but does endorse sinus congestion, rhinorrhea, and cough for two weeks. - Symptoms are nonspecific. Given history of anemia, will evaluate hgb - Patient also has multiple chronic medical conditions that could be contributing to malaise and weakness, including CHF, DM, vascular disease - Reports sinus pressure, congestion, and cough. Could have URI, sinus infection or possible UTI (though no urinary symptoms reported) causing malaise - CBC, CMP, trop, EKG, CXR, UA, UCx 08/09/19 13:26 - Labs reviewed, unremarkable - EKG w/ paced rhythm, HR 62. No significant changes from previous - CXR without acute pathology - UA and culture sent, results pending 08/09/19 14:01 - UA positive. +nitrites, 1+ leuk esterase, 800 bacteria, 23 WBC - Updated pt. Will send prescription for keflex. Advised regarding home care, return precautions, follow up. Pt understands and agrees with this plan Discussed with Dr Alyssa Collins PGY2 Discharge - Discharge Information Problems reviewed: Yes Clinical Impression/Diagnosis: UTI (urinary tract infection) Qualifiers: Urinary tract infection type: acute cystitis Hematuria presence: without hematuria Qualified Code(s): N30.00 - Acute cystitis without hematuria Condition: Stable Disposition: HOME - Admission No - Additional Discharge Information Prescriptions: Cephalexin [Keflex] 500 mg PO Q12H #14 capsule - Follow up/Referral Referrals: Julio C Barbosa MD [Primary Care Provider] - - Patient Discharge Instructions Patient Printed Discharge Instructions: DI for Urinary Tract Infection (UTI) Additional Instructions: Discharge Instructions: You were seen in the emergency department for general malaise and fatigue. You were found to have a urinary tract infection. Home Care and Follow Up: - You have been prescribed an antiboitc called Keflex. This should be taken twice per day for one week - You may also have a sinus infection, which is probably viral. Consider using a Neti pot (available at the pharmacy) to help rinse out your sinuses, followed by a nasal spray such as Flonase. This will likely improve your symptoms. Follow up with your primary doctor if your sinus symptoms do not improve in the next week. - Continue to take all of your regular medications as prescribed - Follow up with your PMD in 1-2 weeks if symptoms do not improve - Seek immediate care if you have worsening symptoms, chest pain, difficulty breathing, you develop fevers, you have severe pain, or you have any other medical emergency. - Post Discharge Activity
[2019-08-09 12:04] LABS: BASO % 0.6 % (0-2.0); EOS % 6.8 % (0-4.5); HEMATOCRIT 38.7 % (32.4-45.2); HEMOGLOBIN 12.5 GM/dL (10.7-15.3); LYMPH % 16.9 % (8-40); MCH 28.4 pg (25.7-33.7); MCHC 32.3 g/dl (32.0-36.0); MEAN CELL VOLUME 87.7 fl (80-96); MEAN PLT VOLUME 8.6 fl (7.5-11.1); MONO % 7.9 % (3.8-10.2); NEUT % 67.8 % (42.8-82.8); PLATELET COUNT 203 K/MM3 (134-434); RBC 4.41 M/mm3 (3.60-5.2); RDW 13.3 % (11.6-15.6); WHITE BLOOD COUNT 9.4 K/mm3 (4.0-10.0)
[2019-08-09 12:56] LABS: ALBUMIN 3.4 g/dl (3.4-5.0); BILIRUBIN,TOTAL 0.5 mg/dL (0.2-1); BLOOD UREA NITROGEN 30.1 mg/dL (7-18); CREATININE 1.1 mg/dL (0.55-1.3); POTASSIUM 4.6 mmol/L (3.5-5.1); TOT PROT 7.6 g/dl (6.4-8.2)
--- NOTE | 2019-08-09 13:32 | PDOC ---
Documentation entered by Aracelis Merino SCRIBE, acting as scribe for Steven Shah MD. Steven Shah MD: This documentation has been prepared by the Angelique madera Joy, SCRIBE, under my direction and personally reviewed by me in its entirety. I confirm that the documentation accurately reflects all work, treatment, procedures, and medical decision making performed by me. Attending Attestation - Resident Resident Name: DennisTata - ED Attending Attestation I have performed the following: I have examined & evaluated the patient, The case was reviewed & discussed with the resident, I agree w/resident's findings & plan, Exceptions are as noted - HPI HPI: 08/09/19 13:44 74 F with h/o HTN, HLD, DM, CAD, CHF, CVA, AVR, PPM, PVD, anemia, presenting with several weeks of fatigue and malaise. Pt denies any focal or unilateral weakness. States that she feels generally weak, the same way she felt when she needed a transfusion for anemia. Pt denies any CP/SOB/palpitations. Denies any recent F/C. Denies lightheadedness. Pt endorses nasal congestion and cough. - Physicial Exam PE: 08/09/19 13:45 GENERAL: Awake, alert, and fully oriented, in no acute distress. HEAD: No signs of trauma EYES: PERRLA, EOMI, sclera anicteric, conjunctiva clear ENT: Auricles normal inspection, hearing grossly normal, nares patent, oropharynx clear without exudates. Moist mucosa NECK: Nontender, no stepoffs, Normal ROM, supple, no lymphadenopathy, JVD, or masses LUNGS: Breath sounds equal, clear to auscultation bilaterally. No wheezes, and no crackles HEART: Regular rate and rhythm, normal S1 and S2, no murmurs, rubs or gallops ABDOMEN: Soft, nontender, normoactive bowel sounds. No guarding, no rebound. No masses EXTREMITIES: Normal range of motion, no edema. No clubbing or cyanosis. No cords, erythema, or tenderness NEUROLOGICAL: Cranial nerves II through XII intact. 5/5 strength and sensation in all extremities, Normal speech, normal gait, normal cerebellar function SKIN: Warm, Dry, normal turgor, no rashes or lesions noted. - Medical Decision Making 08/09/19 13:45 74 F with generalized malaise. Pt well appearing on exam. Vitals notable for HTN , but pt reports that this is her baseline. Will evaluate for infectious process. Check EKG and trop to r/o ACS. Pt without focal neuro deficits to suggest CVA. - Labs - CXR, UA 08/09/19 14:07 UA consistent with UTI Labs otherwise unremarkable Will start pt on keflex Pt instructed to f/u with PMD regarding BP control Pt is well appearing, with normal vitals. Clinically stable for DC at this time. I discussed the physical exam findings, ancillary test results and final diagnoses with the patient. I answered all of the patient's questions. The patient was satisfied with the care received and felt comfortable with the discharge plan and treatment plan. The patient agrees to follow up with the primary care physician within 24-72 hours.
[2019-08-09 13:49] LABS: EPI CELLS 0.8 /HPF (0-5/HPF); HYALINE CASTS 7 /lpf (0-8); URINE APPEARANCE CLOUDY; URINE BILIRUBIN NEGATIVE (NEGATIVE); URINE COLOR YELLOW; URINE GLUCOSE (UA) NEGATIVE (NEGATIVE); URINE KETONE NEGATIVE (NEGATIVE); URINE LEUK ESTERASE 1+ (NEGATIVE); URINE NITRITE POSITIVE (NEGATIVE); URINE PROTEIN TRACE (NEGATIVE); URINE RBC 6 /hpf (0-4); URINE UROBILINOGEN 0.2 mg/dL (0.2-1.0); URINE WBC 23 /hpf (0-5)
[2019-08-09 14:24] VITALS: BP 165/75; PULSE 70; TEMP 97.8
--- NOTE | 2019-08-09 16:58 | EKG ---
Test Reason : Blood Pressure : / mmHG Vent. Rate : 062 BPM Atrial Rate : 062 BPM P-R Int : 208 ms QRS Dur : 164 ms QT Int : 486 ms P-R-T Axes : 054 079 070 degrees QTc Int : 493 ms Atrial-sensed ventricular-paced rhythm ABNORMAL ECG WHEN COMPARED WITH ECG OF 04-APR-2019 10:17, VENT. RATE HAS DECREASED BY 7 BPM Confirmed by ANGLE RAY MD ([id number]) on 08/09/2019 4:57:48 PM Referred By: Confirmed By:ANGLE RAY MD
== END 2019-08-09 14:00 | disposition home or self-care (01) ==
LOC: JER 10:09
DX: N30.00 Acute cystitis without hematuria (principal); I25.10 Atherosclerotic heart disease of native coronary artery without angina pectoris; I11.0 Hypertensive heart disease with heart failure; I50.9 Heart failure, unspecified; E78.5 Hyperlipidemia, unspecified; E11.9 Type 2 diabetes mellitus without complications; Z79.4 Long term (current) use of insulin; Z86.73 Personal history of transient ischemic attack (TIA), and cerebral infarction without residual deficits; D64.9 Anemia, unspecified; Z95.2 Presence of prosthetic heart valve; Z95.0 Presence of cardiac pacemaker; Z95.828 Presence of other vascular implants and grafts; Z79.02 Long term (current) use of antithrombotics/antiplatelets; Z79.82 Long term (current) use of aspirin; Z88.2 Allergy status to sulfonamides
CPT/HCPCS: 36415; 71046-TC-FY; 80053; 81003; 82550; 84484; 85025; 86850; 86900; 86901; 87086; 87186; 93005; 93010; 99283-25

== ENCOUNTER 2020-03-13 13:29 | Emergency (ER) | payer OTHER, BC ==
--- NOTE | 2020-03-13 13:36 | PDOC ---
History of Present Illness - General Chief Complaint: Pain, Acute Stated Complaint: left calf pain Time Seen by Provider: 03/13/20 13:36 - History of Present Illness Initial Comments: 03/13/20 14:00 Chief complaint: Pain left leg HPI: Gradually worsening left leg pain and swelling for several days. Pain extends from the posterior calf to the inner thigh and groin. Swelling is primarily located in the posterior calf. There is increased erythema and blanching of the calf as well. No recent trauma. She had a stent placed by Dr. Orozco in November 2023 PVD. Review of systems: Denies chest pain, shortness of breath, abdominal pain, nausea, vomiting, diarrhea, visual or focal neurologic symptoms, unsteadiness of gait. Denies polyuria, polydipsia, weight gain or weight loss, urinary tract symptoms, vaginal bleeding or discharge. Remainder of systems reviewed and noncontributory Past medical history: Coronary artery disease, status post multiple cardiac stents, valvular heart disease with prosthetic heart valve, CHF, COPD, insulin- dependent diabetes, elevated cholesterol, chronic pain syndrome Medications: Atorvastatin, Plavix, furosemide, insulin glargine, metoprolol, baby aspirin, gabapentin, lidocaine patch, semaglutide Social history: Former smoker, quit in about 1994. Denies current use of alcohol or nonprescription drugs. Stable home and family. Denies symptoms of anxiety or depression Family history: Reviewed and significant for diabetes and coronary artery disease Physical exam: Alert and oriented moderately obese mild to moderate distress due to left leg pain. Cooperative. Afebrile, vital signs stable PERRLA, fundi benign, ENT clear Neck supple without bruit mass or nodes Lungs show scattered bibasilar rales, symmetric, no tachypnea or dyspnea, or other respiratory distress CV S1-S2 distant, 2/6 early to midsystolic murmur in the aortic area with radiation to the apex. Pulses are not palpable in either lower extremity, but Doppler examination reveals good pulses and they dorsalis pedis and posterior tibial arteries. Neurological C2 to 12 intact. Generalized weakness but no focal sensorimotor deficits. Gait stable Extremities: There is marked induration of the left calf, though this may be chronic. There is mild tenderness. However, the greatest tenderness is elicited over the hamstring insertion, lateral popliteal fossa. There is mild tenderness of the inner thigh as well. As noted above, pulses are not palpable, but Doppler reveals good pulses in the left foot. The foot is warm, nontender, and without pain, numbness, or paresthesias. Impression: Arterial circulation is adequate. The foot is warm and there are pulses by Doppler. There is swelling and tenderness of the posterior calf and inner thigh, suggestive of possible DVT. There are no signs or symptoms of PE. D-dimer would probably be unreliable because of multiple comorbidities. Plan: Venous Doppler and further medical evaluation depending on results. 03/13/20 15:36 Past History - Medical History Allergies/Adverse Reactions: Allergies Allergy/AdvReac Type Severity Reaction Status Date / Time sulfamethoxazole Allergy Intermediate MOUTH SORES Verified 03/13/20 13:33 [From Bactrim] trimethoprim [From Bactrim] Allergy Intermediate MOUTH SORES Verified 03/13/20 13:33 Home Medications: Ambulatory Orders Atorvastatin Ca [Lipitor] 40 mg PO HS 05/22/18 Cholecalciferol (Vitamin D3) [Vitamin D3 -] 5,000 unit PO DAILY 05/22/18 Clopidogrel Bisulfate [Plavix] 75 mg PO DAILY 05/22/18 Cyanocobalamin [Vitamin B12 -] 1,000 mcg PO DAILY 05/22/18 Ferrous Sulfate [Iron] 325 mg PO DAILY 05/22/18 Furosemide [Lasix] 40 mg PO DAILY 05/22/18 Insulin Glargine,Hum.rec.anlog [Lantus] 10 units SQ DAILY 05/22/18 Metoprolol Succinate [Toprol Xl] 50 mg PO DAILY 05/22/18 Vitamin E 400 unit PO BID 05/22/18 Aspirin [Aspirin EC] 81 mg PO DAILY 08/09/19 Lidocaine 5% Patch [Lidoderm -] 1 patch TD DAILY 08/09/19 Gabapentin [Neurontin] 200 mg PO TID 03/10/20 Semaglutide [Rybelsus] 3 mg PO DAILY 03/10/20 Anemia: Yes (had blood transfusions) Cardiac Disorders: Yes (Aortic stenosis (Plavix) "blocked carotid arteries") CVA: Yes (CVA- 2009-NO RESIDUAL) COPD: Yes CHF: Yes Dementia: No Diabetes: Yes (IDDM- 40 YRS) GI Disorders: No Disorders: No HTN: Yes Hypercholesterolemia: Yes Liver Disease: No Seizures: No Thyroid Disease: No - Surgical History Abdominal Surgery: Yes (LEFT-BENIGN) Appendectomy: No Cardiac Surgery: Yes (cath pacemaker 03/20/19, valve replacement) Cholecystectomy: No Lung Surgery: No Neurologic Surgery: No Orthopedic Surgery: Yes (R. Knee & Femur) - Immunization History Td Vaccination: Yes Immunization Up to Date: No - Psycho-Social/Smoking History Smoking Status: No Smoking History: Former smoker Years of Tobacco Use: 20 Have you smoked in the past 12 months: No Number of Cigarettes Smoked Daily: 0 If you are a former smoker, when did you quit?: 1994 Cigars Per Day: 0 Medical Decision Making - Medical Decision Making 03/13/20 15:33 Venous Dopplers negative for DVT. There is no significant erythema or warmth suggestive of cellulitis. Although pulses are not palpable, good pulses are obtained with Doppler, and the foot is warm, without pain, numbness, paresthesias, or tenderness, therefore arterial insufficiency is unlikely Warm compresses and rest/elevation recommended. Follow-up with Dr. Orozco in Dr. Barbosa as directed. Adequately ambulatory and in no significant pain at discharge. Discharge - Discharge Information Problems reviewed: Yes Clinical Impression/Diagnosis: Strain of calf muscle Qualifiers: Encounter type: initial encounter Laterality: left Qualified Code(s): S86.812A - Strain of other muscle(s) and tendon(s) at lower leg level, left leg, initial encounter Condition: Stable Disposition: HOME - Admission No - Follow up/Referral Referrals: Julio C Barbosa MD [Primary Care Provider] - 3 days - Patient Discharge Instructions Patient Printed Discharge Instructions: DI for Calf Muscle Strain Additional Instructions: Rest, elevation, heat. Return to ER if symptoms progress. Otherwise follow-up with Dr. Barbosa as directed - Post Discharge Activity
[2020-03-13 13:49] VITALS: BP 100/63; TEMP 98.1; BMI 36.6
[2020-03-13 15:36] VITALS: PULSE 89
== END 2020-03-13 15:43 | disposition home or self-care (01) ==
LOC: FER 13:29
DX: S86.812A Strain of other muscle(s) and tendon(s) at lower leg level, left leg, initial encounter (principal); Y99.9 Unspecified external cause status
CPT/HCPCS: 93971-TC; 99284-25

== ENCOUNTER 2020-03-16 06:18 | Day surgery (SDC) | payer OTHER, BC ==
[2020-03-10 13:49] VITALS: BMI 36.6
[2020-03-16] MEDS: CYCLOPENTOLATE 2% OPHTH SOLN 2 ML BOTTLE ONE ×3 (07:00→07:10)
[2020-03-16] MEDS: TROPICAMIDE 1% OPHTH SOLN 15 ML BOTTLE ONE ×3 (07:00→07:10)
[2020-03-16] MEDS: PHENYLEPHRINE 2.5% OPHTH SOLN 15 ML BOTTLE ONE ×3 (07:00→07:10)
[2020-03-16] MEDS: CIPROFLOXACIN 0.3% EYE DROPS 5 ML BOTTLE ONE ×3 (07:00→07:10)
[2020-03-16] MEDS ORDERED: LIDOCAINE 1% P/F 10 MG/ML VIAL ONE (07:19)
[2020-03-16] MEDS ORDERED: NEO/POLYMYX B SULF/DEXAMETH OPHTHALMIC 5ML BOTTLE ONE (07:21)
[2020-03-16] MEDS ORDERED: BSS (NA/CA/MG/K) BALANCED SALT SOLUTION OPHTH SOLN 15 ML BOTTLE ONE (07:21)
[2020-03-16] MEDS ORDERED: TETRACAINE 0.5% OPHTH SOLN 2 ML BOTTLE ONE (07:21)
[2020-03-16] MEDS ORDERED: EPINEPHrine/PF 1 MG/1 ML (1:1,000) AMPULE ONE (07:22)
[2020-03-16] MEDS ORDERED: MIDAZOLAM HCL 2 MG/2 ML SINGLE DOSE VIAL ONE (08:15)
[2020-03-16 12:47] VITALS: TEMP 97.5
[2020-03-16 12:52] VITALS: BP 170/82; PULSE 73
--- NOTE | 2020-03-16 17:38 | OP ---
DATE OF OPERATION: 03/16/2020 OPERATIVE PROCEDURE: Lens Phacoemulsification with Posterior Chamber Intraocular Lens Placement Right Eye PREOPERATIVE DIAGNOSIS: Visually Significant Cataract of Right Eye POSTOPERATIVE DIAGNOSIS: Visually Significant Cataract of Right Eye SURGEON: Parker Sinclair M.D. ANESTHESIA: MAC PROCEDURE: The patient was brought to the operating room and placed under monitored anesthesia care by Anesthesia. A drop of Tetracaine was then placed over the right eye. The patient was then prepped and draped in the usual sterile manner. A speculum was then placed over the right eye. The eye was then well irrigated with copious amounts of BSS (balanced salt solution). The operating microscope was then moved into position. A paracentesis was performed using a 15 degree blade. At this point 0.5 mL of 1% preservative-free lidocaine was injected into the anterior chamber. Amvisc plus was then injected into the anterior chamber. A clear corneal incision was then formed using a 2.2 mm keratome. A capsulorrhexis was then performed in a continuous circular fashion beginning with a cystotome, completed with an Utratas forceps. Hydrodissection was then performed using BSS on a cannula. The phaco probe was then introduced through the corneal wound and the cataract was removed using the phaco chop technique. Approximately 3 seconds of absolute phaco time was used. The remaining cortex was then removed using irrigation and aspiration with an I/A probe. The capsule was then filled with regular Amvisc and the capsule was noted to be intact. A previously selected foldable posterior chamber intraocular lens was then injected into the capsule through the corneal wound using a lens injector. It was then dialed into position using a Sinskey hook. The Amvisc was then removed using irrigation and aspiration. Miostat was then injected through the paracentesis to constrict the pupil. The paracentesis and corneal wound were then hydrated and noted to be water tight. A drop of Maxitrol was then placed over the eye. The speculum was removed and clear shield was taped over the eye. The patient tolerated the procedure well and there were no surgical complications. The patient was asked to follow up in my office the next day. PARKER SINCLAIR M.D. ALEKSANDAR/[id number]
== END 2020-03-16 09:20 | disposition home or self-care (01) ==
LOC: FASU 06:18
PROVIDERS: ATTEND Ophthalmology
PROC: 08RJ3JZ Replacement of Right Lens with Synthetic Substitute, Percutaneous Approach (ICD-10-PCS; principal; 2020-03-16 08:23)
DX: H26.8 Other specified cataract (principal)
CPT/HCPCS: 82962

== ENCOUNTER 2020-04-20 06:33 | Day surgery (SDC) | payer OTHER, BC ==
[2020-04-18 12:21] VITALS: BMI 36.8
--- OUTSIDE RECORDS SUMMARY | 2020-04-20 06:36 | XMS ---
:1945 Author Organization [facility] Support Name Relationship Address Phone RE Unavailable Unavailable Unavailable BRYN BETANCUR [address] [facility] [phone] [place] [address] MAXX BETANCUR FAMILY/OTHER [address] [facility] [address] MAXX BETANCUR Other [address] [facility] [place] [address] Re-disclosure Warning The records that you are about to access may contain information from federally- assisted alcohol or drug abuse programs. If such information is present, then the following federally mandated warning applies: This information has been disclosed to you from records protected by federal confidentiality rules (42 CFR part 2). The federal rules prohibit you from making any further disclosure of this information unless further disclosure is expressly permitted by the written consent of the person to whom it pertains or as otherwise permitted by 42 CFR part 2. A general authorization for the release of medical or other information is NOT sufficient for this purpose. The Federal rules restrict any use of the information to criminally investigate or prosecute any alcohol or drug abuse patient.The records that you are about to access may contain highly sensitive health information, the redisclosure of which is protected by Article 27-F of the [facility] Public Health law. If you continue you may haveaccess to information: Regarding HIV / AIDS; Provided by facilities licensed or operated by the [facility] Office of Mental Health; or Provided by the [facility] Office for People With Developmental Disabilities. If such information is present, then the following [facility] mandated warning applies: This information has been disclosed to you from confidential records which are protected by state law. State law prohibits you from making any further disclosure of this information without the specific written consent of the person to whom it pertains, or as otherwise permitted by law. Any unauthorized further disclosure in violation of state law may result in a fine or fdc sentence or both. A general authorization for the release of medical or other information is NOT sufficient authorization for further disclosure. Insurance Providers Payer name Policy type Policy ID Covered Covered libertarian's Policy P ana / Coverage libertarian ID relationship to Miranda Inf ormation type miranda BC PPO [id number] SP [id number] MEDICARE [id number] SP [id number] MEDICARE [id number] SP [id number] PPO [id number] SP [id number] MEDICARE [id number] SP [id number] A THE EMPIR [id number] 1 [id number] PLAN PA MEDICARE [id number] 1 [id number] PART B DOWNSTATE Results ID Date Data Source [id number] 03/12/2020 11:00:00 AM EDT [facility] Name Value Range Interpretation Description Data Sup porting Code Source(s) Document(s ) SARS [facility] coronavirus 2 RNA This lab was ordered by [facility] and reported by [facility]. Procedure
[2020-04-20] MEDS ORDERED: PHENYLEPHRINE 2.5% OPHTH SOLN 15 ML BOTTLE ONE (06:42)
[2020-04-20] MEDS ORDERED: CYCLOPENTOLATE 2% OPHTH SOLN 2 ML BOTTLE ONE (06:42)
[2020-04-20] MEDS ORDERED: CIPROFLOXACIN 0.3% EYE DROPS 5 ML BOTTLE ONE (06:42)
[2020-04-20] MEDS ORDERED: TROPICAMIDE 1% OPHTH SOLN 15 ML BOTTLE ONE (06:42)
[2020-04-20] MEDS: CIPROFLOXACIN HCL 0.3% OPHTH 2.5ML BOTTLE OS SCH ×3 (07:10→07:20)
[2020-04-20] MEDS: CYCLOPENTOLATE 2% OPHTH SOLN 2 ML BOTTLE OS SCH ×3 (07:10→07:20)
[2020-04-20] MEDS: TROPICAMIDE 1% OPHTH SOLN 15 ML BOTTLE OS SCH ×3 (07:10→07:20)
[2020-04-20] MEDS: PHENYLEPHRINE 2.5% OPHTH SOLN 15 ML BOTTLE OS SCH ×3 (07:10→07:20)
[2020-04-20] MEDS ORDERED: LIDOCAINE 1% P/F 10 MG/ML VIAL ONE (07:16)
[2020-04-20] MEDS ORDERED: BSS (NA/CA/MG/K) BALANCED SALT SOLUTION OPHTH SOLN 15 ML BOTTLE ONE (07:17)
[2020-04-20] MEDS ORDERED: CARBACHOL 0.01% INTRA-OCULAR 1.5 ML VIAL ONE (07:17)
[2020-04-20] MEDS ORDERED: TETRACAINE 0.5% OPHTH SOLN 2 ML BOTTLE ONE (07:17)
[2020-04-20] MEDS ORDERED: NEO/POLYMYX B SULF/DEXAMETH OPHTHALMIC 5ML BOTTLE ONE (07:18)
[2020-04-20] MEDS ORDERED: EPINEPHrine/PF 1 MG/1 ML (1:1,000) AMPULE ONE (07:18)
[2020-04-20 07:20] VITALS: TEMP 98.1
[2020-04-20] MEDS ORDERED: MIDAZOLAM HCL 2 MG/2 ML SINGLE DOSE VIAL ONE ×2 (07:30→08:18)
[2020-04-20] MEDS ORDERED: ONDANSETRON 4 MG/2 ML VIAL ONE (08:15)
[2020-04-20 09:35] VITALS: BP 130/65; PULSE 87
--- NOTE | 2020-04-20 10:46 | OP ---
DATE OF OPERATION: 04/20/2020 OPERATIVE PROCEDURE: Lens phacoemulsification with posterior chamber intraocular lens placement, left eye. PREOPERATIVE DIAGNOSIS: Visually significant cataract of left eye. POSTOPERATIVE DIAGNOSIS: Visually significant cataract of left eye. SURGEON: Parker Sinclair MD ANESTHESIA: MAC. PROCEDURE: The patient was brought to the operating room and placed under monitored anesthesia care by Anesthesia. A drop of Tetracaine was then placed over the left eye. The patient was then prepped and draped in the usual sterile manner. A speculum was then placed over the left eye. The eye was then well irrigated with copious amounts of BSS (balanced salt solution). The operating microscope was then moved into position. A paracentesis was performed using a 15-degree blade. At this point 0.5 mL of 1% preservative-free lidocaine was injected into the anterior chamber. Amvisc Plus was then injected into the anterior chamber. A clear corneal incision was then formed using a 2.2-mm keratome. A capsulorrhexis was then performed in a continuous circular fashion beginning with a cystotome, completed with an Utratas forceps. Hydrodissection was then performed using BSS on a cannula. The phaco probe was then introduced through the corneal wound and the cataract was removed using the phaco chop technique. Approximately 3 seconds of absolute phaco time was used. The remaining cortex was then removed using irrigation and aspiration with an I/A probe. The capsule was then filled with regular Amvisc, and the capsule was noted to be intact. A previously selected foldable posterior chamber intraocular lens was then injected into the capsule through the corneal wound using a lens injector. It was then dialed into position using a Sinskey hook. The Amvisc was then removed using irrigation and aspiration. Miostat was then injected through the paracentesis to constrict the pupil. The paracentesis and corneal wound were then hydrated and noted to be watertight. A drop of Maxitrol was then placed over the eye. The speculum was removed, and clear shield was taped over the eye. The patient tolerated the procedure well, and there were no surgical complications. The patient was asked to follow up in my office the next day. PARKER SINCLAIR M.D. [id number]
== END 2020-04-20 10:05 | disposition home or self-care (01) ==
LOC: FASU 06:33
PROVIDERS: ATTEND Ophthalmology
PROC: 08RK3JZ Replacement of Left Lens with Synthetic Substitute, Percutaneous Approach (ICD-10-PCS; principal; 2020-04-20 08:18)
DX: H26.8 Other specified cataract (principal)
CPT/HCPCS: 82962

== ENCOUNTER 2020-07-29 08:22 | Inpatient (IN) | payer OTHER, BC ==
[2020-07-29] MEDS ORDERED: ACETAMINOPHEN 500 MG TABLET (FP) PO ONE (08:32)
[2020-07-29] MEDS ORDERED: ACETAMINOPHEN 500 MG TABLET (FP) ONE (08:34)
[2020-07-29 11:20] LABS: HEMATOCRIT 38.7 % (32.4-45.2); HEMOGLOBIN 12.2 GM/dl (10.7-15.3); MCH 28.4 pg (25.7-33.7); MCHC 31.5 g/dl (32.0-36.0); MEAN CELL VOLUME 90.1 fl (80-96); MEAN PLT VOLUME 8.5 fl (7.5-11.1); PLATELET COUNT 178 K/MM3 (134-434); RDW 12.8 % (11.6-15.6); WHITE BLOOD COUNT 11.6 K/mm3 (4.0-10.8)
[2020-07-29 11:28] LABS: ACTIVATED PTT 25.5 SECONDS (25.2-36.5)
[2020-07-29 11:32] LABS: INR 1.08 (0.82-1.09)
[2020-07-29 11:35] LABS: ALBUMIN 3.4 g/dl (3.4-5.0); BILIRUBIN,TOTAL 0.8 mg/dl (0.2-1); CALCIUM 9.2 mg/dl (8.5-10); CREATININE 1.2 mg/dl (0.55-1.3)
[2020-07-29 11:42] LABS: PLATELET ESTIMATE ADEQUATE
[2020-07-29] MEDS ORDERED: morphine CARPU-JECT 4 MG/1 ML DISP.SYRIN IVPUSH ONE ×2 (12:35→14:40)
[2020-07-29] MEDS ORDERED: morphine SULFATE 4 MG/ML VIAL ONE ×2 (12:38→14:42)
[2020-07-29] MEDS ORDERED: metoPROLOL SUCCINATE 25 MG TAB.SR.24H (FP) PO SCH (14:45)
[2020-07-29] MEDS ORDERED: ENOXAPARIN NA (PORCINE) 40 MG/0.4 ML DISP.SYRIN SQ ONE (17:32)
[2020-07-29] MEDS ORDERED: HEPARIN NA (PORCINE) 5,000 UNITS/ML 1ML VIAL SQ SCH (18:00)
[2020-07-29] MEDS ORDERED: INSULIN (LEVEMIR) 100 UNITS/ML UNITS SQ ONE (18:11)
[2020-07-29] MEDS: INSULIN SLIDING SCALE (NOVOLOG) 1 VIAL SQ SCH ×2 (18:16→22:08)
[2020-07-29 21:36] LABS: URINE APPEARANCE CLOUDY; URINE BILIRUBIN NEGATIVE (NEGATIVE); URINE COLOR YELLOW; URINE GLUCOSE (UA) NEGATIVE (NEGATIVE); URINE KETONE NEGATIVE (NEGATIVE); URINE LEUK ESTERASE NEGATIVE (NEGATIVE); URINE NITRITE NEGATIVE (NEGATIVE); URINE PROTEIN NEGATIVE (NEGATIVE); URINE UROBILINOGEN 0.2 mg/dL (0.2-1.0)
[2020-07-29] MEDS: ATORVASTATIN CA 40 MG TABLET (FP) PO SCH (22:07)
[2020-07-29] MEDS: ACETAMINOPHEN 500 MG TABLET (FP) PO PRN (22:07)
[2020-07-30] MEDS: INSULIN SLIDING SCALE (NOVOLOG) 1 VIAL SQ SCH ×4 (06:46→22:49)
[2020-07-30] MEDS ORDERED: INSULIN (LEVEMIR) 100 UNITS/ML UNITS SQ SCH ×3 (07:00→08:00)
[2020-07-30 08:04] LABS: BASO % 0.7 % (0-2.0); EOS % 6.4 % (0-4.5); HEMATOCRIT 35.9 % (32.4-45.2); HEMOGLOBIN 11.8 GM/dL (10.7-15.3); LYMPH % 14.8 % (8-40); MCH 29.3 pg (25.7-33.7); MEAN CELL VOLUME 88.8 fl (80-96); MEAN PLT VOLUME 8.5 fl (7.5-11.1); MONO % 8.1 % (3.8-10.2); PLATELET COUNT 147 K/MM3 (134-434); RBC 4.04 M/mm3 (3.60-5.2); RDW 13.3 % (11.6-15.6); WHITE BLOOD COUNT 9.7 K/mm3 (4.0-10.0)
[2020-07-30] MEDS ORDERED: SODIUM CHLORIDE 1,000 ML IV SCH (08:15)
[2020-07-30 08:18] LABS: BLOOD UREA NITROGEN 29.4 mg/dL (7-18)
[2020-07-30 08:21] LABS: CREATININE 1.4 mg/dL (0.55-1.3); PHOSPHOROUS 3.6 mg/dL (2.5-4.9)
[2020-07-30 08:24] LABS: INR 0.98 (0.83-1.09); PROTHROMBIN TIME (PATIENT) 11.9 SEC (9.7-13.0)
[2020-07-30] MEDS: FUROSEMIDE 40 MG TABLET (FP) PO SCH (09:05)
[2020-07-30] MEDS: FERROUS SO4 325 MG TABLET (FP) PO SCH (09:05)
[2020-07-30] MEDS: PANTOPRAZOLE 20 MG TABLET PO SCH (09:05)
[2020-07-30] MEDS ORDERED: ROCURONIUM BROMIDE 50 MG/5 ML SYRINGE ONE (09:07)
[2020-07-30] MEDS ORDERED: MIDAZOLAM HCL 2 MG/2 ML SINGLE DOSE VIAL ONE ×2 (09:07)
[2020-07-30] MEDS ORDERED: fentaNYL CITRATE 250 MCG/5 ML VIAL ONE (09:07)
[2020-07-30] MEDS ORDERED: PROPOFOL 20 ML ONE (09:07)
[2020-07-30] MEDS ORDERED: ETOMIDATE 20 MG/10 ML AMPUL IVPUSH ONE (09:13)
[2020-07-30] MEDS ORDERED: ePHEDrine SULFATE 50 MG/1 ML AMPULE ONE (09:16)
[2020-07-30] MEDS ORDERED: ENOXAPARIN NA (PORCINE) 40 MG/0.4 ML DISP.SYRIN SQ SCH (10:00)
[2020-07-30] MEDS ORDERED: PATIENT'S OWN MEDICATION (NON-FORMULARY) (Insulin Glargine,Hum.Rec.Anlog [Lantus] 100 UNIT SQ SCH (10:00)
[2020-07-30] MEDS: oxyCODONE HCL 5 MG TABLET PO PRN (13:32)
[2020-07-30] MEDS: ACETAMINOPHEN 500 MG TABLET (FP) PO PRN (13:33)
[2020-07-30] MEDS ORDERED: SODIUM ZIRCONIUM CYCLOSILICATE (LOKELMA) 5 GM PACKET PO SCH (16:45)
[2020-07-30] MEDS: ENOXAPARIN NA (PORCINE) 40 MG/0.4 ML DISP.SYRIN SQ SCH (17:46)
[2020-07-30] MEDS ORDERED: SODIUM ZIRCONIUM CYCLOSILICATE (LOKELMA) 10 GM PACKET PO SCH (18:19)
[2020-07-30] MEDS: morphine SULFATE 4 MG/ML VIAL IVPUSH PRN (21:11)
[2020-07-30] MEDS: ATORVASTATIN CA 40 MG TABLET (FP) PO SCH (22:44)
[2020-07-31] MEDS: oxyCODONE HCL 5 MG TABLET PO PRN (02:18)
[2020-07-31] MEDS: INSULIN SLIDING SCALE (NOVOLOG) 1 VIAL SQ SCH ×4 (07:04→22:15)
[2020-07-31] MEDS: ACETAMINOPHEN 500 MG TABLET (FP) PO PRN ×2 (07:09→22:11)
[2020-07-31 09:22] LABS: BASO % 0.8 % (0-2.0); EOS % 7.4 % (0-4.5); HEMATOCRIT 34.6 % (32.4-45.2); HEMOGLOBIN 11.5 GM/dL (10.7-15.3); LYMPH % 20.6 % (8-40); MCH 29.4 pg (25.7-33.7); MCHC 33.1 g/dl (32.0-36.0); MEAN CELL VOLUME 88.8 fl (80-96); MEAN PLT VOLUME 8.6 fl (7.5-11.1); MONO % 8.6 % (3.8-10.2); NEUT % 62.6 % (42.8-82.8); PLATELET COUNT 126 K/MM3 (134-434); RBC 3.89 M/mm3 (3.60-5.2); RDW 13.2 % (11.6-15.6); WHITE BLOOD COUNT 8.5 K/mm3 (4.0-10.0)
[2020-07-31 09:34] LABS: BLOOD UREA NITROGEN 30.1 mg/dL (7-18)
[2020-07-31 09:35] LABS: CALCIUM 8.9 mg/dL (8.5-10.1)
[2020-07-31 09:38] LABS: CREATININE 1.3 mg/dL (0.55-1.3)
[2020-07-31 09:40] LABS: BILIRUBIN,TOTAL 0.9 mg/dL (0.2-1); TOT PROT 6.7 g/dl (6.4-8.2)
[2020-07-31] MEDS ORDERED: PT OWN MED DRAWER 7, Y5N ONE (10:16)
[2020-07-31] MEDS: FUROSEMIDE 40 MG TABLET (FP) PO SCH (10:26)
[2020-07-31] MEDS: PANTOPRAZOLE 20 MG TABLET PO SCH (10:26)
[2020-07-31] MEDS: FERROUS SO4 325 MG TABLET (FP) PO SCH (10:26)
[2020-07-31] MEDS: INSULIN (LEVEMIR) 100 UNITS/ML UNITS SQ SCH (10:27)
[2020-07-31] MEDS: ENOXAPARIN NA (PORCINE) 40 MG/0.4 ML DISP.SYRIN SQ SCH (10:27)
[2020-07-31 12:16] VITALS: BMI 35.9
[2020-07-31] MEDS: morphine SULFATE 4 MG/ML VIAL IVPUSH PRN (17:33)
[2020-07-31] MEDS: ATORVASTATIN CA 40 MG TABLET (FP) PO SCH (22:11)
[2020-08-01] MEDS: oxyCODONE HCL 5 MG TABLET PO PRN ×3 (01:30→21:12)
[2020-08-01] MEDS: INSULIN SLIDING SCALE (NOVOLOG) 1 VIAL SQ SCH ×4 (06:14→21:18)
[2020-08-01 07:42] LABS: BASO % 0.6 % (0-2.0); HEMATOCRIT 34.1 % (32.4-45.2); HEMOGLOBIN 11.3 GM/dL (10.7-15.3); MCH 29.2 pg (25.7-33.7); MCHC 33.1 g/dl (32.0-36.0); MEAN PLT VOLUME 8.8 fl (7.5-11.1); MONO % 13.3 % (3.8-10.2); NEUT % 50.1 % (42.8-82.8); PLATELET COUNT 122 K/MM3 (134-434); RBC 3.88 M/mm3 (3.60-5.2); RDW 13.2 % (11.6-15.6); WHITE BLOOD COUNT 7.5 K/mm3 (4.0-10.0)
[2020-08-01 07:57] LABS: ALBUMIN 2.7 g/dl (3.4-5.0); BLOOD UREA NITROGEN 32.1 mg/dL (7-18); CALCIUM 8.4 mg/dL (8.5-10.1)
[2020-08-01 08:01] LABS: CREATININE 1.2 mg/dL (0.55-1.3)
[2020-08-01 08:02] LABS: BILIRUBIN,TOTAL 1.4 mg/dL (0.2-1); TOT PROT 6.3 g/dl (6.4-8.2)
[2020-08-01] MEDS: morphine SULFATE 4 MG/ML VIAL IVPUSH PRN (08:53)
[2020-08-01] MEDS: INSULIN (LEVEMIR) 100 UNITS/ML UNITS SQ SCH (08:57)
[2020-08-01] MEDS ORDERED: PT OWN MED DRAWER 7, Y5N ONE (10:25)
[2020-08-01] MEDS: FERROUS SO4 325 MG TABLET (FP) PO SCH (10:26)
[2020-08-01] MEDS: PANTOPRAZOLE 20 MG TABLET PO SCH (10:26)
[2020-08-01] MEDS: FUROSEMIDE 40 MG TABLET (FP) PO SCH (10:26)
[2020-08-01] MEDS: ENOXAPARIN NA (PORCINE) 40 MG/0.4 ML DISP.SYRIN SQ SCH (10:27)
[2020-08-01] MEDS ORDERED: INSULIN (NOVOLOG) ASPART 100 UNITS/ML 10ML VIAL ONE (20:59)
[2020-08-01] MEDS ORDERED: INSULIN (LEVEMIR) 100 UNITS/ML UNITS SQ ONE (20:59)
[2020-08-01] MEDS: ATORVASTATIN CA 40 MG TABLET (FP) PO SCH (21:12)
[2020-08-02] MEDS: morphine SULFATE 4 MG/ML VIAL IVPUSH PRN ×5 (00:48→22:51)
[2020-08-02] MEDS: INSULIN SLIDING SCALE (NOVOLOG) 1 VIAL SQ SCH ×4 (06:31→21:46)
[2020-08-02 07:43] LABS: HEMATOCRIT 34.1 % (32.4-45.2); HEMOGLOBIN 11.4 GM/dL (10.7-15.3); MCH 29.5 pg (25.7-33.7); MCHC 33.4 g/dl (32.0-36.0); MEAN CELL VOLUME 88.1 fl (80-96); MEAN PLT VOLUME 8.7 fl (7.5-11.1); PLATELET COUNT 152 K/MM3 (134-434); RBC 3.87 M/mm3 (3.60-5.2); WHITE BLOOD COUNT 7.3 K/mm3 (4.0-10.0)
[2020-08-02] MEDS ORDERED: PT OWN MED DRAWER 7, Y5N ONE (08:56)
[2020-08-02] MEDS: ENOXAPARIN NA (PORCINE) 40 MG/0.4 ML DISP.SYRIN SQ SCH (09:05)
[2020-08-02] MEDS: INSULIN (LEVEMIR) 100 UNITS/ML UNITS SQ SCH (09:06)
[2020-08-02] MEDS: PANTOPRAZOLE 20 MG TABLET PO SCH (09:07)
[2020-08-02] MEDS: FERROUS SO4 325 MG TABLET (FP) PO SCH (09:07)
[2020-08-02] MEDS: FUROSEMIDE 40 MG TABLET (FP) PO SCH (09:07)
[2020-08-02] MEDS ORDERED: BISACODYL 5 MG TABLET.DR (FP) PO ONE (21:45)
[2020-08-02] MEDS: ATORVASTATIN CA 40 MG TABLET (FP) PO SCH (21:46)
[2020-08-03] MEDS: morphine SULFATE 4 MG/ML VIAL IVPUSH PRN ×3 (03:12→22:22)
[2020-08-03] MEDS: INSULIN SLIDING SCALE (NOVOLOG) 1 VIAL SQ SCH ×3 (06:28→18:42)
[2020-08-03 07:27] LABS: BASO % 0.5 % (0-2.0); EOS % 4.4 % (0-4.5); HEMATOCRIT 32.7 % (32.4-45.2); LYMPH % 24.8 % (8-40); MCH 29.7 pg (25.7-33.7); MCHC 33.8 g/dl (32.0-36.0); MEAN CELL VOLUME 87.6 fl (80-96); MEAN PLT VOLUME 8.7 fl (7.5-11.1); MONO % 15.5 % (3.8-10.2); NEUT % 54.8 % (42.8-82.8); PLATELET COUNT 173 K/MM3 (134-434); RBC 3.73 M/mm3 (3.60-5.2); RDW 13.2 % (11.6-15.6)
[2020-08-03 07:28] LABS: PROTHROMBIN TIME (PATIENT) 12.3 SEC (9.7-13.0)
[2020-08-03 07:30] LABS: ACTIVATED PTT 27.9 SECONDS (25.2-36.5)
[2020-08-03 07:39] LABS: CALCIUM 8.5 mg/dL (8.5-10.1)
[2020-08-03 07:40] LABS: ALBUMIN 2.6 g/dl (3.4-5.0); BLOOD UREA NITROGEN 31.1 mg/dL (7-18)
[2020-08-03 07:43] LABS: CREATININE 1.2 mg/dL (0.55-1.3)
[2020-08-03 07:45] LABS: BILIRUBIN,TOTAL 0.8 mg/dL (0.2-1); TOT PROT 6.6 g/dl (6.4-8.2)
[2020-08-03] MEDS ORDERED: BISACODYL 5 MG TABLET.DR (FP) PO PRN (08:50)
[2020-08-03] MEDS: INSULIN (LEVEMIR) 100 UNITS/ML UNITS SQ SCH (09:31)
[2020-08-03] MEDS: FUROSEMIDE 40 MG TABLET (FP) PO SCH (09:31)
[2020-08-03] MEDS: FERROUS SO4 325 MG TABLET (FP) PO SCH (09:31)
[2020-08-03] MEDS: PANTOPRAZOLE 20 MG TABLET PO SCH (09:31)
[2020-08-03] MEDS: ENOXAPARIN NA (PORCINE) 40 MG/0.4 ML DISP.SYRIN SQ SCH (09:33)
[2020-08-03] MEDS ORDERED: SODIUM CHLORIDE 1,000 ML IV SCH ×2 (17:15→21:01)
[2020-08-03] MEDS: ATORVASTATIN CA 40 MG TABLET (FP) PO SCH (22:30)
[2020-08-04] MEDS: INSULIN SLIDING SCALE (NOVOLOG) 1 VIAL SQ SCH ×3 (00:39→22:13)
[2020-08-04] MEDS: morphine SULFATE 4 MG/ML VIAL IVPUSH PRN ×2 (02:28→09:33)
[2020-08-04] MEDS ORDERED: INSULIN (LEVEMIR) 100 UNITS/ML UNITS SQ ONE (07:00)
[2020-08-04 08:11] LABS: BASO % 0.7 % (0-2.0); EOS % 7.7 % (0-4.5); HEMATOCRIT 34.1 % (32.4-45.2); HEMOGLOBIN 11.4 GM/dL (10.7-15.3); LYMPH % 27.6 % (8-40); MCH 29.2 pg (25.7-33.7); MCHC 33.4 g/dl (32.0-36.0); MEAN CELL VOLUME 87.5 fl (80-96); MEAN PLT VOLUME 8.7 fl (7.5-11.1); MONO % 15.6 % (3.8-10.2); NEUT % 48.4 % (42.8-82.8); PLATELET COUNT 189 K/MM3 (134-434)
[2020-08-04 08:25] LABS: CALCIUM 8.8 mg/dL (8.5-10.1)
[2020-08-04 08:26] LABS: ALBUMIN 2.7 g/dl (3.4-5.0)
[2020-08-04 08:30] LABS: BILIRUBIN,TOTAL 1.2 mg/dL (0.2-1); TOT PROT 6.9 g/dl (6.4-8.2)
[2020-08-04] MEDS: PANTOPRAZOLE 20 MG TABLET PO SCH (09:55)
[2020-08-04] MEDS: FERROUS SO4 325 MG TABLET (FP) PO SCH (09:55)
[2020-08-04] MEDS ORDERED: MIDAZOLAM HCL 2 MG/2 ML SINGLE DOSE VIAL ONE (12:08)
[2020-08-04] MEDS ORDERED: LABETALOL HCL 5 MG/1 ML (100MG/20 ML VIAL) IVPUSH ONE (14:30)
[2020-08-04] MEDS ORDERED: ENOXAPARIN NA (PORCINE) 40 MG/0.4 ML DISP.SYRIN SQ ONE (15:00)
[2020-08-04] MEDS: ATORVASTATIN CA 40 MG TABLET (FP) PO SCH (22:13)
[2020-08-04 23:01] VITALS: BP 162/75; PULSE 87; TEMP 98.8
[2020-08-05] MEDS ORDERED: ENOXAPARIN NA (PORCINE) 40 MG/0.4 ML DISP.SYRIN SQ SCH ×2 (10:00→11:00)
== END 2020-08-04 23:05 | disposition short-term general hospital (02) | DRG 536 ==
LOC: FER 08:22 → J8W 17:00 → J7W 08-01 20:24 → J6S 08-04 17:49
PROVIDERS: ADMIT Internal Medicine; ATTEND Internal Medicine
DX: S72.002A Fracture of unspecified part of neck of left femur, initial encounter for closed fracture (principal); I13.0 Hypertensive heart and chronic kidney disease with heart failure and stage 1 through stage 4 chronic kidney disease, or unspecified chronic kidney disease; I50.32 Chronic diastolic (congestive) heart failure; N17.9 Acute kidney failure, unspecified; N18.9 Chronic kidney disease, unspecified; Z95.2 Presence of prosthetic heart valve; I35.0 Nonrheumatic aortic (valve) stenosis; E78.00 Pure hypercholesterolemia, unspecified; Z95.0 Presence of cardiac pacemaker; I73.9 Peripheral vascular disease, unspecified; I25.10 Atherosclerotic heart disease of native coronary artery without angina pectoris; D50.9 Iron deficiency anemia, unspecified; D63.1 Anemia in chronic kidney disease; E11.22 Type 2 diabetes mellitus with diabetic chronic kidney disease; E78.5 Hyperlipidemia, unspecified; T41.205A Adverse effect of unspecified general anesthetics, initial encounter; I95.2 Hypotension due to drugs; T88.59XA Other complications of anesthesia, initial encounter; Y83.9 Surgical procedure, unspecified as the cause of abnormal reaction of the patient, or of later complication, without mention of misadventure at the time of the procedure; E87.5 Hyperkalemia; I27.20 Pulmonary hypertension, unspecified; W19.XXXA Unspecified fall, initial encounter; Y93.9 Activity, unspecified; Y92.89 Other specified places as the place of occurrence of the external cause; Y99.9 Unspecified external cause status
CPT/HCPCS: 36415; 70450-TC; 71045-TC-FY; 72125-TC; 72192-TC; 73523-TC-FY; 73552-TC-LT-FY; 74177-TC; 80048; 80053; 81003; 82962; 83036; 83735; 84100; 85025; 85027; 85610; 85730; 86850; 86900; 86901; 86922; 93005; 94760; 99285-25; C9803; U0003